=== PATIENT | male | born 1950 | race Caucasian/White ===

== ENCOUNTER → 2019-01-27 | Outpatient (REF) | payer MEDICARE, BC ==
[2019-01-27 17:20] LABS: BLOOD UREA NITROGEN 32 MG/DL (7-18); CALCIUM LEVEL 9.2 MG/DL (8.8-10.2); CARBON DIOXIDE LEVEL 27 MEQ/L (21-32); CHLORIDE LEVEL 106 MEQ/L (98-107); CHOLESTEROL LEVEL 182 MG/DL (<200); CHOLESTEROL RISK RATIO 3.791 (<5); CREATININE FOR GFR 1.54 MG/DL (0.70-1.30); GLOMERULAR FILTRATION RATE 48.2 (>49); GLUCOSE, FASTING 89 MG/DL (70-100); HDL CHOLESTEROL 48 MG/DL (>40); LDL CHOLESTEROL 94 MG/DL (<100); NON-HDL-C 134 MG/DL; POTASSIUM SERUM 4.8 MEQ/L (3.5-5.1); PROSTATIC SPECIFIC AG MONITOR < 0.01 NG/ML (< 4.00); SODIUM LEVEL 141 MEQ/L (136-145); TRIGLYCERIDES LEVEL 201 MG/DL (<150)
== END ==
LOC: M SFHCCLAY 09:58
PROVIDERS: ATTEND Family Medicine
DX: E78.5 Hyperlipidemia, unspecified (principal); I11.9 Hypertensive heart disease without heart failure; Z85.46 Personal history of malignant neoplasm of prostate

== ENCOUNTER 2019-07-30 15:12 | Observation (INO) | payer BC, MEDICARE ==
[~2019-07-30] VITALS: Ht 185.4 cm; Wt 90.6 kg
[2019-07-30 16:00] LABS: BASO # 0.1 10^3/uL (0.0-0.2); BASO % 0.7 % (0.0-1.0); EOS % 0.3 % (0.0-3.0); HEMATOCRIT 37.7 % (42.0-52.0); HEMOGLOBIN 12.9 g/dl (13.5-17.5); LYMPH # 0.7 10^3/uL (1.5-5.0); LYMPH % 8.9 % (24.0-44.0); MEAN CORPUSCULAR HEMOGLOBIN 35.8 pg (27.0-33.0); MEAN CORPUSCULAR HGB CONC 34.2 g/dl (32.0-36.5); MEAN CORPUSCULAR VOLUME 104.7 fl (80.0-96.0); MONO # 0.7 10^3/uL (0.0-0.8); MONO % 8.9 % (0.0-5.0); NEUTROPHILS # 5.9 10^3/uL (1.5-8.5); NEUTROPHILS % 80.8 % (36.0-66.0); PLATELET COUNT, AUTOMATED 157 10^3/uL (150-450); WHITE BLOOD COUNT 7.3 10^3/uL (4.0-10.0)
[2019-07-30 16:11] LABS: INR 1.02; PROTHROMBIN TIME 13.1 SECONDS (11.8-14.0)
[2019-07-30 16:28] LABS: ALBUMIN 4.2 GM/DL (3.2-5.2); ALT/SGPT 115 U/L (12-78); BILIRUBIN,DIRECT 0.3 MG/DL (0.0-0.2); BILIRUBIN,TOTAL 1.5 MG/DL (0.2-1.0); BLOOD UREA NITROGEN 23 MG/DL (7-18); CALCIUM LEVEL 9.3 MG/DL (8.8-10.2); CARBON DIOXIDE LEVEL 22 MEQ/L (21-32); CHLORIDE LEVEL 104 MEQ/L (98-107); CK-MB VALUE MASS 2.5 NG/ML (<3.6); CPK CREATINE PHOSPHOKINASE 184 U/L (39-308); CREATININE FOR GFR 1.68 MG/DL (0.70-1.30); GLOMERULAR FILTRATION RATE 43.6 (>49); GLUCOSE, FASTING 142 MG/DL (70-100); MB/CK RELATIVE INDEX 1.36 (< OR =4); NT-PRO BNP 190 PG/ML (<125); POTASSIUM SERUM 4.1 MEQ/L (3.5-5.1); SODIUM LEVEL 139 MEQ/L (136-145); TOTAL PROTEIN 7.4 GM/DL (6.4-8.2); TROPONIN I < 0.02 NG/ML (< 0.10)
[2019-07-30 16:52] LABS: D-DIMER QUANT 923.97 ng/ml (<500)
[2019-07-30] MEDS ORDERED: NS 1,000 ML IV SCH (17:07)
[2019-07-30] MEDS ORDERED: HEPARIN DRIP 25,000 UNITS in IV 1 EA IV SCH ×2 (17:10→17:16)
[2019-07-30] MEDS ORDERED: ACETAMINOPHEN TAB 650MG DOSE (2X325MG) PO PRN (17:15)
[2019-07-30] MEDS ORDERED: MAALOX 30 ML SUSP *UDC PO PRN (17:15)
[2019-07-30] MEDS ORDERED: MOM 30ML SUSPENSION UDC PO PRN (17:15)
[2019-07-30 17:19] LABS: PARTIAL THROMBOPLASTIN TIME 28.3 SECONDS (25.0-38.4)
[2019-07-30] MEDS ORDERED: LOSA50TA88 PO (17:20)
[2019-07-30] MEDS ORDERED: ATOR1TAB21 PO (17:20)
[2019-07-30] MEDS ORDERED: ASPI325T56 PO (17:20)
--- NOTE | 2019-07-30 17:23 | REP ---
TWO-VIEW CHEST: REASON: Cough and dyspnea. PRIORS: None. FINDINGS: The superior mediastinal structures are midline. The cardiac silhouette is unremarkable in size, shape, and position. The diaphragmatic surfaces of the lungs are regular, and the costophrenic angles are clear. The pulmonary almaraz are clear. The imaged osseous structures are intact. IMPRESSION: There is no acute cardiopulmonary disease. Electronically Signed by Moi Manuel DO 07/31/2019 11:07 A
[2019-07-30] MEDS ORDERED: HEPARIN SOD (PORCINE) 5000UNITS/ML VIAL (J1644 PER 1000UNITS) IV PRN (17:30)
--- NOTE | 2019-07-30 18:01 | HPEPDOC ---
[facility] Medical History & Physical Date of Admission July 30, 2019 Date of Service: July 30, 2019 History and Physical CHIEF COMPLAINT: SOB HISTORY OF PRESENT ILLNESS: Patient is a 68-year-old male with past medical history of HTN, HLD, and PSH of prostatectomy performed 5 years ago with yearly PSA checks, presented with dyspnea. Patient reports symptoms started about or days ago, he reports dyspnea on exertion, no chest pain, occasional lightheadedness. He first noticed it when he was outside in the garden. Today he called his PCP who instructed him to go to the ED for further evaluation. He denies any recent fevers, chills, nausea, vomiting, abdominal pain, issues with voiding or stooling, lower extremity pain. He did recently travel to [place] with his , he returned approximately a month ago and has been self quarantined at home. He denies any sick contacts, does not have current symptoms. This is first episode regarding his presentation. In the ED, patient was found to be tachycardic at 125, afebrile, not hypotensive, saturating 97% on room air. Labs include CBC grossly normal limits, hemoglobin of 12.9, hematocrit 37.7, platelets 157, CMP, revealing a creatinine of 1.68, unknown previous baseline, total bilirubin 1.5, direct bilirubin 0.3, AST 90, ALT 1:15, elevated, proBNP slightly elevated at 190, troponin 1 less than 0.02, TSH 2.06, d-dimer 932, PT/INR, PTT, all grossly within normal limits, COV ID screen pending. Heparin drip was started in the ED. ROS: 10 point review systems negative except per above. PMH: see above PSH: See above Family history: CVD, younger brother (of 7y) with a history of DVT, currently on warfarin Social history: former smoker, denies alcohol, or drug use, is semiretired, works in a [employer]. Medications: Reviewed Allergies: pcn, unknown reaction PHYSICAL EXAMINATION: VITAL SIGNS: Please see below. GENERAL: male who is in no distress, able to speak in full sentences without difficulty HEENT: Normocephalic, atraumatic, moist mucous membranes NECK: Supple CARDIOVASCULAR EXAMINATION: S1, S2 RESPIRATORY EXAMINATION: CTA B ABDOMINAL EXAMINATION: +BS, nontender to palpation EXTREMITIES: no edema, no calf tenderness SKIN: No rash NEUROLOGICAL EXAMINATION: Awake PSYCHIATRIC EXAMINATION: Calm and cooperative, appropriate affect, has capacity Patient is a 68-year-old male presenting with dyspnea, tachycardia in the setting of recent travel and elevated d-dimer #Dyspnea, with associated tachycardia, and elevated d-dimer with high suspicion of PE. Order bilateral lower extremity Doppler to evaluate for DVT, ordered a stat echo to evaluate for right heart strain. Unfortunately CTA cannot be performed due to of elevated creatinine, and VQ scan is not available until 08/01/19 a.m. On empirically continue heparin GTT. #HTN/HLD: Continue home meds #hx Prostatectomy, in the setting of negative lower extremity Doppler, elevated d-dimer, no history of blood dyscrasias, former smoker who quit when he was 33yo, he may require oncological workup if PE present as an outpatient if clinically stable. DVT ppx: Heparin GTT, plan to transition to by mouth tomorrow 07/31/2019 if positive for PE Full code Dispo: dc home AM 07/31/19 Plan was discussed with patient, ED team, nursing team, and staff. Vital Signs Vital Signs Date Time Temp Pulse Resp B/P (MAP) Pulse Ox O2 Delivery O2 Flow Rate FiO2 07/30/19 15:45 07/30/19 15:45 Room Air 07/30/19 15:14 97.9 125 18 97 Laboratory Data Labs 24H Laboratory Tests 2 07/30/19 15:31: Immature Granulocyte % (Auto) 0.4, Neutrophils (%) (Auto) 80.8H, Lymphocytes (%) (Auto) 8.9L, Monocytes (%) (Auto) 8.9H, Eosinophils (%) (Auto) 0.3, Basophils (%) (Auto) 0.7, Neutrophils # (Auto) 5.9, Lymphocytes # (Auto) 0.7L, Monocytes # (Auto) 0.7, Eosinophils # (Auto) 0.0, Basophils # (Auto) 0.1, Nucleated Red Blood Cells % (auto) 0.0, Prothrombin Time 13.1, Prothromb Time International Ratio 1.02, D-Dimer, Quantitative 923.97H, Anion Gap 13, Glomerular Filtration Rate 43.6L, Calcium Level 9.3, Total Bilirubin 1.5H, Direct Bilirubin 0.3H, Aspartate Amino Transf (AST/SGOT) 90H, Alanine Aminotransferase (ALT/SGPT) 115H, Alkaline Phosphatase 78, Total Creatine Kinase 184, Creatine Kinase MB 2.5, Creatine Kinase MB Relative Index 1.36, Troponin I < 0.02, NJ-Ifp-M-Type Natriuretic Peptide 190H, Total Protein 7.4, Albumin 4.2, Albumin/Globulin Ratio 1.31, Thyroid Stimulating Hormone (TSH) 2.060 07/30/19 15:49: CBC/BMP Laboratory Tests 07/30/19 15:31 Microbiology Microbiology 07/30/19 Respiratory Virus Panel (PCR) ([facility]) - Final, Complete Home Medications Scheduled Aspirin (Aspirin) 325 Mg Tablet, 325 MG PO DAILY Atorvastatin Calcium (Atorvastatin Calcium) 20 Mg Tablet, 20 MG PO DAILY Losartan Potassium (Losartan Potassium) 50 Mg Tablet, 50 MG PO BID Allergies Coded Allergies: Penicillins (Verified Allergy, Unknown, rash , 07/30/19) A-FIB/CHADSVASC A-FIB History Current/History of A-Fib/PAF?: No BERNICE CHILEL MD July 30, 2019 17:18
[2019-07-30 18:27] LABS: HEMATOCRIT 36.4 % (42.0-52.0); HEMOGLOBIN 12.1 g/dl (13.5-17.5); MEAN CORPUSCULAR HEMOGLOBIN 35.3 pg (27.0-33.0); MEAN CORPUSCULAR HGB CONC 33.2 g/dl (32.0-36.5); MEAN CORPUSCULAR VOLUME 106.1 fl (80.0-96.0); PLATELET COUNT, AUTOMATED 146 10^3/uL (150-450); RED BLOOD COUNT 3.43 10^6/uL (4.30-6.10); WHITE BLOOD COUNT 8.2 10^3/uL (4.0-10.0)
--- NOTE | 2019-07-30 19:08 | REPVR ---
PROCEDURE INFORMATION: Exam: US Duplex Lower Extremity Veins, Bilateral Exam date and time: 07/30/2019 6:58 PM Age: 68 years old Clinical indication: Other: Shortness of breath; Additional info: Dyspnea TECHNIQUE: Imaging protocol: Real-time duplex ultrasound of the extremities with 2-D stanley scale, color Doppler flow and spectral waveform analysis with image documentation. Complete exam focused on the bilateral lower extremity veins. COMPARISON: No relevant prior studies available. FINDINGS: Right deep veins: Unremarkable. The common femoral, femoral, proximal profunda femoral and popliteal veins are patent without thrombus. Normal Doppler waveforms. Normal compressibility and/or augmentation response. Visualization of distal right femoral vein was limited. No thrombus in tibioperoneal trunk. Right superficial veins: Saphenofemoral junction is patent without thrombus. Left deep veins: Unremarkable. The common femoral, femoral, proximal profunda femoral and popliteal veins are patent without thrombus. Normal Doppler waveforms. Normal compressibility and/or augmentation response. No thrombus in tibioperoneal trunk. Left superficial veins: Saphenofemoral junction is patent without thrombus. Soft tissues: Unremarkable. IMPRESSION: No acute findings. No evidence of deep vein thrombosis. Electronically signed by: Lester Barroso On 07/30/2019 19:07:49 PM
--- NOTE | 2019-07-30 20:32 | ECGEPIP ---
[facility] - ED Test Date: 2019-07-30 Pat Name: HAWK FARLEY Department: Room: - Gender: Male [employer]: ef : 1950 Requested By: MORIAH Pereira Order Number: [id number] Reading MD: Koki Guzmán Measurements Intervals [place] Rate: 100 P: 9 WA: 154 QRS: -3 QRSD: 81 T: 15 QT: 327 QTc: 423 Interpretive Statements SINUS TACHYCARDIA LOW QRS VOLTAGE IN PRECORDIAL LEADS POSSIBLE INFERIOR MYOCARDIAL INFARCTION, PROBABLY OLD ABNORMAL RHYTHM ECG NO PRIOR Electronically Signed on 07-30-2019 20:31:37 EDT by Koki Guzmán
[2019-07-30 20:40] VITALS: BP 157/86
[2019-07-30] MEDS: LOSARTAN 50MG TABLET PO SCH (21:04)
[2019-07-31 04:00] VITALS: BP 161/84
[2019-07-31 06:28] LABS: HEMOGLOBIN 11.6 g/dl (13.5-17.5); MEAN CORPUSCULAR HEMOGLOBIN 36.4 pg (27.0-33.0); MEAN CORPUSCULAR HGB CONC 34.1 g/dl (32.0-36.5); MEAN CORPUSCULAR VOLUME 106.6 fl (80.0-96.0); PLATELET COUNT, AUTOMATED 127 10^3/uL (150-450); RED BLOOD COUNT 3.19 10^6/uL (4.30-6.10)
[2019-07-31 06:51] LABS: CALCIUM LEVEL 8.9 MG/DL (8.8-10.2); CREATININE FOR GFR 1.57 MG/DL (0.70-1.30); GLOMERULAR FILTRATION RATE 47.1 (>49)
[2019-07-31 08:00] VITALS: BP 146/82
[2019-07-31 08:07] VITALS: BP 146/82
[2019-07-31] MEDS: LOSARTAN 50MG TABLET PO SCH (08:07)
[2019-07-31] MEDS ORDERED: ATORVASTATIN 20 MG TAB PO SCH (09:00)
[2019-07-31] MEDS ORDERED: ASPIRIN 325 MG TAB PO SCH (09:00)
[2019-07-31 12:00] VITALS: BP 142/81
--- NOTE | 2019-07-31 12:23 | REP ---
VENTILATION-PERFUSION LUNG SCAN: HISTORY: Dyspnea and tachycardia. TECHNIQUE: 1.0 mCi technetium 99m DTPA aerosol is utilized for the ventilation study and is followed by 5.5 mCi dose of technetium-99m MAA given intravenously for the perfusion exam. A sequence of eight planar images are acquired for each portion of the study. Comparison is made with yesterday's chest x-ray. SCINTIGRAPHIC FINDINGS: There is a normal homogeneous distribution of perfusion tracer throughout the lung almaraz bilaterally. No perfusion defect is seen. Ventilation study and is essentially normal as well with minimal mediastinal tracer consistent with swallowed esophageal or tracheal inspired tracer. IMPRESSION: Normal VQ lung scan. No scintigraphic evidence to suggest pulmonary embolism. Electronically Signed by Carson Khoury MD 07/31/2019 01:31 P
--- NOTE | 2019-07-31 13:53 | DS.PDOC ---
Discharge Summary General Date of Admission July 30, 2019 at 17:11 Date of Discharge 08/01/19 Discharge Summary PROCEDURES PERFORMED DURING STAY: None. ADMITTING DIAGNOSES: 1. SOB. DISCHARGE DIAGNOSES: 1. Dyspnea on exertion. COMPLICATIONS/CHIEF COMPLAINT: Dyspnea,Elevated D-Dimer,Tachycardia. HISTORY OF PRESENT ILLNESS/HOSPITAL COURSE: Patient is a 68-year-old male with past medical history of HTN, HLD, and PSH of prostatectomy performed 5 years ago with yearly PSA checks, presented with dyspnea. He was found to have stage III, CK D during hospitalization, and no previous labs to compare, stable, no urinary issues. Due to suspicion of PE, including dyspnea, tachycardia, elevated d- dimer, patient was empirically started on heparin drip. Bilateral ultrasound Dopplers were negative, VQ scan this a.m. was normal. Patient reports resolution of shortness of breath. Will lots discharged on steroids or inhalers, patient is saturating well on room air and is speaking in full sentences. He will follow-up with his PCP in 1 week. Tachycardia has resolved. Discussed with patient dif ferent causes of shortness of breath, intentionally viral in etiology which would require systematic treatment. No changes with medications. All questions were answered. Echo was performed in hospitalization, results pending, follow-up results as outpatient. DISCHARGE MEDICATIONS: Please see below. ALLERGIES: Please see below. PHYSICAL EXAMINATION ON DISCHARGE: VITAL SIGNS: Please see below. GENERAL: No distress HEENT: Normocephalic, atraumatic, moist mucous membranes NECK: Supple CARDIOVASCULAR EXAMINATION: S1, S2 RESPIRATORY EXAMINATION: CTAB ABDOMINAL EXAMINATION: Soft, nontender, nondistended, positive bowel sounds EXTREMITIES: no edema SKIN: No rash NEUROLOGICAL EXAMINATION: Alert and oriented 3, no focal deficits PSYCHIATRIC EXAMINATION: Calm and cooperative, appropriate affect LABORATORY DATA: Please see below. ACTIVITY: As tolerated. DIET: Cardiac DISCHARGE PLAN: See above DISPOSITION: DC home TIME SPENT ON DISCHARGE: 35 minutes, >50% was spent on patient education. Vital Signs/I&Os Vital Signs Date Time Temp Pulse Resp B/P (MAP) Pulse Ox O2 Delivery O2 Flow Rate FiO2 07/31/19 12:00 98.3 89 17 142/81 (101) 98 Room Air I&O- Last 24 Hours up to 6 AM 07/31/19 06:00 Intake Total 1183 ml Output Total 275 ml Balance 908 ml Laboratory Data Labs 24H Laboratory Tests 2 07/30/19 15:31: Immature Granulocyte % (Auto) 0.4, Neutrophils (%) (Auto) 80.8H, Lymphocytes (%) (Auto) 8.9L, Monocytes (%) (Auto) 8.9H, Eosinophils (%) (Auto) 0.3, Basophils (%) (Auto) 0.7, Neutrophils # (Auto) 5.9, Lymphocytes # (Auto) 0.7L, Monocytes # (Auto) 0.7, Eosinophils # (Auto) 0.0, Basophils # (Auto) 0.1, Nucleated Red Blood Cells % (auto) 0.0, Prothrombin Time 13.1, Prothromb Time International Ra red 1.02, Activated Partial Thromboplast Time 28.3, D-Dimer, Quantitative 923.97H, Anion Gap 13, Glomerular Filtration Rate 43.6L, Calcium Level 9.3, Total Bilirubin 1.5H, Direct Bilirubin 0.3H, Aspartate Amino Transf (AST/SGOT) 90H, Alanine Aminotransferase (ALT/SGPT) 115H, Alkaline Phosphatase 78, Total Creatine Kinase 184, Creatine Kinase MB 2.5, Creatine Kinase MB Relative Index 1.36, Troponin I < 0.02, RV-Hlc-I-Type Natriuretic Peptide 190H, Total Protein 7.4, Albumin 4.2, Albumin/Globulin Ratio 1.31, Thyroid Stimulating Hormone (TSH) 2.060 07/30/19 15:49: Coronavirus (COVID-19)(PCR) NEGATIVE 07/30/19 18:09: Nucleated Red Blood Cells % (auto) 0.0, Activated Partial Thromboplast Time 35.4 07/30/19 23:24: Activated Partial Thromboplast Time 61.9H 07/31/19 06:18: Nucleated Red Blood Cells % (auto) 0.0, Activated Partial Thromboplast Time 147.5*H, Anion Gap 7L, Glomerular Filtration Rate 47.1L, Calcium Level 8.9 CBC/BMP Laboratory Tests 07/30/19 15:31 07/30/19 18:09 07/31/19 06:18 Microbiology Microbiology 07/30/19 Respiratory Virus Panel (PCR) ([facility]) - Final, Complete Discharge Medications Scheduled Aspirin (Aspirin) 325 Mg Tablet, 325 MG PO DAILY, (Reported) Atorvastatin Calcium (Atorvastatin Calcium) 20 Mg Tablet, 20 MG PO DAILY, (Reported) Losartan Potassium (Losartan Potassium) 50 Mg Tablet, 50 MG PO BID, (Reported) Allergies Coded Allergies: Penicillins (Verified Allergy, Unknown, rash , 07/30/19) BERNICE CHILEL MD July 31, 2019 13:53
--- NOTE | 2019-07-31 19:59 | ECHO ---
DATE OF PROCEDURE: 07/31/2019 Date of : 1950 Age: 68 Gender: Male Height: 73 inches Weight: 198 pounds Body surface area: 2.14 meters squared Inpatient: Progressive care unit (PCU), room 3214 REFERRING PHYSICIAN: Alysha Pichardo MD INDICATION: Dyspnea. MEASUREMENTS: 2D Measurements: RV: 3.9 cm LV: 4.2 cm Septum: 1.1 cm Posterior wall: 1.1 cm Aortic root: 3.8 cm LA: 3.9 cm LVEF: 75% Doppler Measurements: AV: 1.26 meters per second LVOT: 0.96 meters per second LVOT diameter: 2.0 cm MV-E: 63, A: 81, EA ratio: 0.8 Early mitral deceleration time: 254 milliseconds E prime medial: 6.5, A prime medial: 9.6, E prime lateral: 9.5. Average E/E prime ratio: 7.9/pulmonary capillary wedge pressure: 11.7 mmHg. PV: 0.75 meters per second Pulmonary artery acceleration time: 113 milliseconds PASP: 32 mmHg IVC: 2.0 cm COMMENTS: Normal sinus rhythm without intraventricular conduction disturbance. M-mode and two-dimensional echocardiography was performed with pulsed, continuous wave, color flow and tissue Doppler study. Normal left ventricular size, wall thickness and hyperkinetic wall motion. Left atrial size upper limits of normal with grade 1 left ventricular (LV) diastolic dysfunction but currently normal estimated mean left atrial pressure. Normal right heart chamber sizes and motion with Doppler sign of borderline pulmonary hypertension. Normal inferior vena cava (IVC) size and collapse against an elevated central venous pressure. Borderline dilated aortic root but normal ascending aorta. Mild aortic valvular sclerosis without functional abnormality. Normal appearing tricuspid valve and leaflet excursion with no posterior systolic buckling. Trace mitral insufficiency (physiologic). Normal appearing tricuspid valve with trace insufficiency (physiologic). No apparent intracardiac mass or pericardial effusion.
== END 2019-07-31 15:26 | disposition home or self-care (01) ==
LOC: M ED 15:12 → M ED INP 17:11 → ENRESERV 19:41 → M PCU 20:50
PROVIDERS: ADMIT Family Medicine; ATTEND Family Medicine
DX: R06.09 Other forms of dyspnea (principal); R79.1 Abnormal coagulation profile; R00.0 Tachycardia, unspecified; I12.9 Hypertensive chronic kidney disease with stage 1 through stage 4 chronic kidney disease, or unspecified chronic kidney disease; E78.5 Hyperlipidemia, unspecified; Z90.79 Acquired absence of other genital organ(s); N18.3 Chronic kidney disease, stage 3 (moderate); Z85.46 Personal history of malignant neoplasm of prostate; Z79.899 Other long term (current) drug therapy; Z79.82 Long term (current) use of aspirin; Z88.0 Allergy status to penicillin; Z87.891 Personal history of nicotine dependence
CPT/HCPCS: 36415; 71046; 78582; 80048; 80076; 82550; 82553; 83880; 84443; 84484; 85025; 85027; 85379; 85610; 85730; 87486; 87581; 87633; 87798; 93005; 93041; 93306; 93970; 94760; 96365; 96366; 99285; A9540; A9567; G0378; J1644; U0002

== ENCOUNTER → 2019-08-28 | Outpatient (REF) | payer MEDICARE ==
[~2019-08-28] MED LIST: ASPI325T56 PO; ATOR1TAB21 PO; LOSA50TA88 PO
[2019-08-28 13:04] LABS: BASO % 0.7 % (0.0-1.0); EOS # 0.1 10^3/uL (0.0-0.5); HEMATOCRIT 33.5 % (42.0-52.0); HEMOGLOBIN 11.5 g/dl (13.5-17.5); LYMPH # 1.2 10^3/uL (1.5-5.0); LYMPH % 26.5 % (24.0-44.0); MEAN CORPUSCULAR HEMOGLOBIN 36.3 pg (27.0-33.0); MEAN CORPUSCULAR HGB CONC 34.3 g/dl (32.0-36.5); MEAN CORPUSCULAR VOLUME 105.7 fl (80.0-96.0); MONO # 0.6 10^3/uL (0.0-0.8); MONO % 13.3 % (0.0-5.0); NEUTROPHILS # 2.6 10^3/uL (1.5-8.5); NEUTROPHILS % 56.1 % (36.0-66.0); PLATELET COUNT, AUTOMATED 142 10^3/uL (150-450); RED BLOOD COUNT 3.17 10^6/uL (4.30-6.10); WHITE BLOOD COUNT 4.6 10^3/uL (4.0-10.0)
[2019-08-28 13:37] LABS: ALBUMIN 3.8 GM/DL (3.2-5.2); ALT/SGPT 105 U/L (12-78); BLOOD UREA NITROGEN 18 MG/DL (7-18); CALCIUM LEVEL 8.5 MG/DL (8.8-10.2); CARBON DIOXIDE LEVEL 27 MEQ/L (21-32); CHLORIDE LEVEL 106 MEQ/L (98-107); CREATININE FOR GFR 1.19 MG/DL (0.70-1.30); FOLATE 6.9 NG/ML; GLOMERULAR FILTRATION RATE > 60.0 (>49); GLUCOSE, FASTING 82 MG/DL (70-100); POTASSIUM SERUM 4.1 MEQ/L (3.5-5.1); RHEUMATOID FACTOR QUANT < 10.0 IU/ML (<15.0); SODIUM LEVEL 142 MEQ/L (136-145); TOTAL PROTEIN 6.9 GM/DL (6.4-8.2)
[2019-08-28 13:48] LABS: ERYTHROCYTE SEDIMENTATION RATE 35 mm/hr (0-20)
[2019-08-28 14:31] LABS: HEMOGLOBIN A1c 5.7 %
[2019-08-29 10:51] LABS: VITAMIN B12 LEVEL 1732 PG/ML
[2019-09-01 12:48] LABS: ALBUMIN % 64.1 % (55.8-66.1)
[2019-09-01 12:49] LABS: ALPHA-1-GLOBULIN % 4.8 % (2.9-4.9)
[2019-09-01 12:52] LABS: ALBUMIN 4.42 GM/DL (3.29-5.55); ALPHA-1-GLOBULINS 0.33 GM/DL (0.17-0.41); ALPHA-2-GLOBULINS 0.68 GM/DL (0.42-0.99); ALPHA-2-GLOBULINS % 9.9 % (7.1-11.8); BETA-1-GLOBULINS 0.45 GM/DL (0.28-0.60); BETA-1-GLOBULINS % 6.5 % (4.7-7.2); BETA-2-GLOBULINS 0.35 GM/DL (0.19-0.55); GAMMA GLOBULIN % 9.7 % (11.1-18.8); GAMMA GLOBULINS 0.67 GM/DL (0.65-1.58)
[2019-09-04 08:09] LABS: ANCA-ATYPICAL <1:20 titer (Neg:<1:20); ANTI DS-DNA AB Negative (Negative); ANTINUCLEAR ANTIBODIES DIRECT Negative (Negative); CYTOPLASMIC NEUTROP AB ANCA-C <1:20 titer (Neg:<1:20); PERINUCLEAR AB ANCA-P <1:20 titer (Neg:<1:20); SJOGREN'S ANTI SS-A <0.2 AI (0.0-0.9); SJOGREN'S ANTI SS-B <0.2 AI (0.0-0.9); VITAMIN B1 LEVEL WHOLE BLOOD 98.7 nmol/L (66.5-200.0); VITAMIN B6,PYRIDOXAL PHOSPHATE 5.1 ug/L (5.3-46.7); VITAMIN E(ALPHA TOCOPHEROL) 9.5 mg/L (9.0-29.0); VITAMIN E(GAMMA TOCOPHEROL) 1.2 mg/L (0.5-4.9)
== END ==
LOC: M LABDRAWC 11:46
PROVIDERS: ATTEND Psychiatry & Neurology Neurology
DX: G62.9 Polyneuropathy, unspecified (principal); E07.9 Disorder of thyroid, unspecified

== ENCOUNTER → 2019-10-09 | Outpatient (REF) | payer MEDICARE ==
[2019-10-11 19:08] LABS: Lyme Disease IgG/IgM Antibodie <0.91 ISR (0.00-0.90); Lyme Disease IgM Ab Quantitati <0.80 index (0.00-0.79)
== END ==
LOC: M LABDRAWC 15:47
PROVIDERS: ATTEND Physician Assistant Medical
DX: R53.83 Other fatigue (principal); R51 Headache; G62.9 Polyneuropathy, unspecified

== ENCOUNTER → 2019-11-04 | Outpatient (CLI) | payer MEDICARE ==
--- NOTE | 2019-12-15 09:44 | REP ---
ABDOMINAL RIGHT UPPER QUADRANT ULTRASOUND Delay in reporting results from malfunction of the hospital computer system as the result of a malware attack. CLINICAL DIAGNOSIS: R94.5 COMPARISON: None. FINDINGS: There is no cholelithiasis, gallbladder wall thickening, or pericholecystic fluid. There is no intrahepatic or extrahepatic biliary duct dilatation. The common biliary duct measures 3.1 mm in diameter. The hepatic parenchyma is homogeneous, but difficult to penetrate with the acoustic beam compatible with hepatosteatosis. No hepatic masses or cysts are identified. The pancreatic tail is obscured by bowel gas. The visualized areas of the pancreatic head and body are unremarkable except for mild heterogeneity, possibly from fatty replacement. The right kidney measures 12.7 x 4.9 x 6.3 cm and is normal size. There is no right renal hydronephrosis, calculus, mass, or cyst. The examination is technically limited because of the patient body habitus and bowel gas. IMPRESSION: Hepatosteatosis. Mildly heterogeneous pancreatic parenchyma possibly from fatty replacement. Clinical correlation for pancreatitis is recommended. Otherwise, negative abdominal right upper quadrant ultrasound. MTDD
== END ==
LOC: M WHC 12:27
PROVIDERS: ATTEND Family Medicine
DX: R94.5 Abnormal results of liver function studies (principal); K76.0 Fatty (change of) liver, not elsewhere classified

== ENCOUNTER → 2020-01-23 | Outpatient (REF) | payer MEDICARE ==
[2020-01-26 19:06] LABS: Lyme Disease IgG/IgM Antibodie <0.91 ISR (0.00-0.90); Lyme Disease IgM Ab Quantitati <0.80 index (0.00-0.79)
== END ==
LOC: M SFHCCLAY 10:38
PROVIDERS: ATTEND Family Medicine
DX: R53.83 Other fatigue (principal)

== ENCOUNTER 2020-02-15 11:20 | Inpatient (IN) | payer MEDICARE ==
[~2020-02-15] VITALS: Ht 185.4 cm; Wt 88.6 kg
[2020-02-15] MEDS ORDERED: ATEN25TA PO (11:36)
[2020-02-15] MEDS ORDERED: NS 1,000 ML IV ONE (12:00)
[2020-02-15 12:07] LABS: BASO % 0.6 % (0.0-1.0); EOS # 0.1 10^3/uL (0.0-0.5); EOS % 1.5 % (0.0-3.0); HEMATOCRIT 30.2 % (42.0-52.0); HEMOGLOBIN 9.6 g/dl (13.5-17.5); LYMPH % 21.4 % (24.0-44.0); MEAN CORPUSCULAR HGB CONC 31.8 g/dl (32.0-36.5); MEAN CORPUSCULAR VOLUME 113.1 fl (80.0-96.0); MONO # 0.5 10^3/uL (0.0-0.8); MONO % 10.5 % (0.0-5.0); NEUTROPHILS # 3.1 10^3/uL (1.5-8.5); NEUTROPHILS % 65.2 % (36.0-66.0); PLATELET COUNT, AUTOMATED 100 10^3/uL (150-450); RED BLOOD COUNT 2.67 10^6/uL (4.30-6.10); WHITE BLOOD COUNT 4.8 10^3/uL (4.0-10.0)
[2020-02-15] MEDS ORDERED: ceFAZolin SOD 1 GM in D5W MINI-BAG PLUS 50 ML IV ONE (12:15)
[2020-02-15] MEDS ORDERED: BOOSTRIX/ADACEL VACCINE (DIPHTH/PERTUSS/ACELL/TETANUS) 0.5ML SYR IM ONE (12:15)
[2020-02-15 12:17] LABS: INR 0.99; PARTIAL THROMBOPLASTIN TIME 28.4 SECONDS (24.2-38.5); PROTHROMBIN TIME 13.3 SECONDS (12.5-14.3)
[2020-02-15] MEDS ORDERED: TETANUS IMMUNE GLOBULIN (HUMAN) 250 UNITS/ML SYRINGE (J1670)(90389) IM ONE (12:30)
--- NOTE | 2020-02-15 12:39 | REP ---
INDICATION: fall, confusion COMPARISON: None. TECHNIQUE: Axial noncontrast images from the skull base to the thoracic inlet with coronal reformations. This CT examination was performed using the following dose reduction techniques: Automated exposure control, adjustment of mA and/or kv according to the patient's size, and use of iterative reconstruction technique. FINDINGS: Age-related atrophy with periventricular leukomalacia and microvascular ischemic changes are appreciated. The ventricles and sulci are symmetric. Martines-white differentiation is maintained. There is no evidence for acute intracranial hemorrhage, mass/mass effect, pathology or infarction. No extra-axial fluid collection. Calvarium is intact. Paranasal sinuses and mastoid air cells are clear. IMPRESSION: Age related atrophy and microvascular ischemic changes. No acute intracranial hemorrhage, infarction, or mass/mass effect. <Electronically signed by Tobias Foster > 02/15/20 [id number]
--- NOTE | 2020-02-15 12:40 | REP ---
INDICATION: fall, right ankle pain COMPARISON: None. TECHNIQUE: AP and lateral views of the right foot. FINDINGS: Generalized age-related degenerative changes are appreciated. Acute versus old fracture at the base of the 5th metatarsal bone requires clinical correlation. No other fracture or dislocation identified. IMPRESSION: Generalized age-related changes. Acute versus likely old fracture at the base of the 5th metatarsal bone should be correlated with physical examination. No other fracture or dislocation identified or suspected. <Electronically signed by Tobias Foster > 02/15/20 1000
[2020-02-15 12:43] LABS: ACETAMINOPHEN LEVEL < 2.0 UG/ML (10.0-30.0); ALBUMIN 3.3 GM/DL (3.2-5.2); ALT/SGPT 103 U/L (12-78); BILIRUBIN,DIRECT 0.3 MG/DL (0.0-0.2); BILIRUBIN,TOTAL 0.4 MG/DL (0.2-1.0); BLOOD UREA NITROGEN 40 MG/DL (7-18); CALCIUM LEVEL 8.4 MG/DL (8.8-10.2); CARBON DIOXIDE LEVEL 23 MEQ/L (21-32); CHLORIDE LEVEL 114 MEQ/L (98-107); CREATININE FOR GFR 1.52 MG/DL (0.70-1.30); ETHYL ALCOHOL (ETHANOL) 0.325 % (0.000-0.010); GLOMERULAR FILTRATION RATE 48.8 (>49); GLUCOSE, FASTING 89 MG/DL (70-100); POTASSIUM SERUM 4.9 MEQ/L (3.5-5.1); SODIUM LEVEL 145 MEQ/L (136-145); TOTAL PROTEIN 6.3 GM/DL (6.4-8.2)
--- NOTE | 2020-02-15 12:43 | REP ---
INDICATION: fall, right ankle pain COMPARISON: None. TECHNIQUE: AP, lateral views of the right tibia/fibula. FINDINGS: There is an oblique displaced fracture of the distal tibial diaphysis. There is an oblique minimally displaced fracture of the proximal fibular metadiaphysis and oblique minimally displaced fracture through the distal fibular metaphysis. IMPRESSION: Oblique fractures of the proximal and distal fibula and oblique fracture of the distal tibia. <Electronically signed by Tobias Foster > 02/15/20 [id number]
--- NOTE | 2020-02-15 12:44 | REP ---
INDICATION: fall, right ankle pain COMPARISON: 07/30/2019 TECHNIQUE: Portable AP view of the chest FINDINGS: The mediastinum and cardiac silhouette are stable and within normal limits for portable technique. The lung almaraz are clear without acute consolidation, effusion, or pneumothorax. Skeletal structures are intact. IMPRESSION: No acute cardiopulmonary process appreciated. <Electronically signed by Tobias Foster > 02/15/20 [id number]
--- NOTE | 2020-02-15 12:45 | REP ---
INDICATION: fall, right ankle pain COMPARISON: None. TECHNIQUE: AP, lateral views of the right ankle FINDINGS: There is an oblique displaced fracture through the distal tibial diaphysis and oblique minimally displaced fracture of the distal fibular metaphysis. Overlying soft tissue swelling noted. IMPRESSION: Oblique fractures of the distal tibial shaft and distal fibular metaphysis. <Electronically signed by Tobias Foster > 02/15/20 [id number]
[2020-02-15] MEDS ORDERED: GABA-1171 PO (14:11)
[2020-02-15] MEDS ORDERED: LORazepam 2 MG TAB PO PRN (14:15)
[2020-02-15] MEDS ORDERED: NS 1,000 ML IV SCH (14:30)
--- NOTE | 2020-02-15 14:37 | HPEPDOC ---
[facility] Medical History & Physical Date of Admission Feb 15, 2020 Date of Service: Feb 15, 2020 History and Physical Chief complaint: Presented to the ER with right leg pain History of present illness: Patient is a 69-year-old male with a PMHx of HTN, DLP, Prostate CA (s/ p Prostatectomy 06/2014, follows annual PSA), Neuropathy (Follows with Neurology) who presented to the emergency room with right leg pain. Patient reports that yesterday evening he must have fallen, does not recall falling, but does report drinking approximately 3-4 drinks of scotch each 2-3 ounces. Patient woke up this morning with right leg pain. Reports pain as a 7/10 aching, throbbing nature, worsened with movement, alleviated with rest and pain medications. Patient denies any nausea, vomiting, abdominal pain consultation, diarrhea, shortness breath, cough, palpitations. Has not experienced any recent fevers or chills. Patient reports that he has had a recent stress test approximately 3 months ago, which was noted to be normal. He did not require any further cardiac catheterization. Patient has been informed that his liver enzymes were elevated in the past because of alcohol despite knowing that he has continued to drink alcohol. Patient reports that he generally drinks 3-4 drinks daily. However, denies any history of alcohol withdrawal. Past Medical History: HTN, DLP, Prostate CA (s/p Prostatectomy 06/2014, follows annual PSA), Neuropathy (Follows with Neurology) Past Surgical History: DEVIATED SEPTUM: AGE 33 PROSTATECTOMY 2014 TONSILLECTOMY PLASTIC SURGERY ON EAR CHILD Allergies: See below Medications: See below Family History: - Family history of cardiovascular disease. Patient reports a younger brother with DVT history Social History: - Denies the use of illicit drugs; Quit smoking >30 years ago; smoker of 20 years at 1 [employer], Reports regular alcohol use (3-4 drinks of 2-3 ounces each - scotch) - Denies recent travel or sick contacts - Lives with - Occupation; currently working at [employer] Review of Systems: 10 point review of systems complete, all negative otherwise stated in HPI Physical exam: - Vitals: BP [135/65], HR [74], RR [18], Sat [97%RA], Temp [98.7F] - General: Lying in bed, Speaking in full sentences, AAOx3 - HEENT: NC, AT, PERRLA - CVS: RRR, +S1S2 - Lungs: Fair air entry bilaterally, No appreciable wheezing / rales / rhonchi - Abdomen: Soft, Non-distended, Non-tender - Extremities: No lower extremity edema, No calf tenderness - Neuro: No focal motor or sensory deficit - Skin: No visible rashes Labs: See below Imaging: CT head 02/14: Age related atrophy and microvascular ischemic changes. No acute intracranial hemorrhage, infarction, or mass/mass effect. Ankle XR 02/14: Oblique fractures of the distal tibial shaft and distal fibular metaphysis. Foot XR 02/14: No acute cardiopulmonary process appreciated. Foot XR 02/14: Generalized age-related changes. Acute versus likely old fracture at the base of the 5th metatarsal bone should be correlated with physical examination. No other fracture or dislocation identified or suspected. XR Tib/Fib 02/14: Oblique fractures of the proximal and distal fibula and oblique fracture of the distal tibia. EKG: See below Assessment and Plan: Right leg pain - likely 2/2 oblique fracture of proximal and distal fibula and oblique fracture of distal tibia - Patient reports a fall while at home and came to the ER with R leg pain - Imaging noted above - Patient is scheduled to go to the OR today is for correction - Patient is medically optimized at low-moderate risk for low risk surgery; discussed risks and benefits of surgery with patient; patient has verbalized understanding - Discuss case with orthopedic surgery, Dr. James Bazzi - Pain control, anticoagulation and physical therapy at the direction of orthopedic surgery Fall at home - likely 2/2 intoxication - EKG reviewed without any ischemic changes - Ethanol level noted to be elevated Elevated ethanol level - Patient reports a regular use of alcohol; last consumed yesterday evening - Currently patient is fully oriented to person, place and time - No prior history of alcohol withdrawal - Will continue with thiamine, folate, and multivitamins - Will start CIWA protocol post-operatively Elevated Cr - Patients Cr baseline appears to 1.1-1.6 - Will hold nephrotoxic medications - c/w IV fluid hydration Transaminitis - Hepatic US 11/12: Hepatosteatosis. Mildly heterogeneous pancreatic parenchyma possibly from fatty replacement. Clinical correlation for pancreatitis is recommended. Otherwise, negative abdominal right upper quadrant ultrasound. Macrocytic anemia - Hemoglobin appears to be slightly lower than baseline - Will check B12/ Folate / Iron panel / Reticulocyte count - May require transfusion Thrombocytopenia - Platelet count appears to be lower than baseline - Will continue to follow HTN - BP currently well controlled - Will hold Losartan (re: Elevated Cr) - c/w Atenolol with hold parameters DLP - c/w Atorvastatin Prostate CA - s/p Prostatectomy 06/2014, follows annual PSA Neuropathy - c/w Gabapentin - Follows with Neurology Gastrointestinal prophylaxis - Will start Protonix DVT prophylaxis - Will hold anticoagulation for now; anticoagulation post-operatively as per orthopedic surgery Vital Signs Vital Signs Date Time Temp Pulse Resp B/P (MAP) Pulse Ox O2 Delivery O2 Flow Rate FiO2 02/15/20 13:30 74 18 135/65 (88) 97 Room Air 02/15/20 11:26 98.7 Laboratory Data Labs 24H Laboratory Tests 2 02/15/20 11:57: Immature Granulocyte % (Auto) 0.8, Neutrophils (%) (Auto) 65.2, Lymphocytes (%) (Auto) 21.4L, Monocytes (%) (Auto) 10.5H, Eosinophils (%) (Auto) 1.5, Basophils (%) (Auto) 0.6, Neutrophils # (Auto) 3.1, Lymphocytes # (Auto) 1.0L, Monocytes # (Auto) 0.5, Eosinophils # (Auto) 0.1, Basophils # (Auto) 0.0, Nucleated Red Blood Cells % (auto) 0.0, Prothrombin Time 13.3, Prothromb Time International Ratio 0.99, Activated Partial Thromboplast Time 28.4, Anion Gap 8, Glomerular Filtration Rate 48.8L, Calcium Level 8.4L, Total Bilirubin 0.4, Direct Bilirubin 0.3H, Aspartate Amino Transf (AST/SGOT) 134H, Alanine Aminotransferase (ALT/SGPT) 103H, Alkaline Phosphatase 75, Total Protein 6.3L, Albumin 3.3, Albumin/Globulin Ratio 1.1, Salicylates Level 6.0, Acetaminophen Level < 2.0L, Ethyl Alcohol Level 0.325H 02/15/20 12:49: Ammonia 19 02/15/20 13:26: Coronavirus (COVID-19)(PCR) NEGATIVE CBC/BMP Laboratory Tests 02/15/20 11:57 Microbiology Microbiology 02/15/20 Blood Culture, Received Pending 02/15/20 Blood Culture, Received Pending Home Medications Scheduled Aspirin (Aspirin) 325 Mg Tablet, 325 MG PO DAILY Atenolol (Atenolol) 25 Mg Tablet, 1 TAB PO BID Atorvastatin Calcium (Atorvastatin Calcium) 20 Mg Tablet, 20 MG PO DAILY Gabapentin (Gabapentin) 100 Mg Capsule, 100 MG PO TID Losartan Potassium (Losartan Potassium) 50 Mg Tablet, 50 MG PO BID Allergies Coded Allergies: Penicillins (Verified Allergy, Intermediate, rash , 02/15/20) MARY ARANA MD Feb 15, 2020 14:37
[2020-02-15 15:04] LABS: FERRITIN 1020 NG/ML (26-388); IRON (FE) 130 UG/DL (65-175); PERCENT SATURATION 46.3 % (19.7-50.0); TOTAL IRON BINDING CAPACITY 281 UG/DL (250-450)
[2020-02-15] MEDS ORDERED: LIDOCAINE W/EPINEPHRINE 1% 20ML VIAL As Ordered ONE (15:37)
[2020-02-15] MEDS ORDERED: ceFAZolin 1GM VIAL (J0690 PER 500MG) As Ordered ONE (15:38)
[2020-02-15] MEDS ORDERED: THIAMINE 200MG/2ML VIAL (J3411 PER 100MG) IV ONE (16:00)
[2020-02-15] MEDS ORDERED: MULTIVITAMIN -ADULT INJECTION 10 ML, THIAMINE INJection 100 MG, FOLIC ACID 1 MG in NS 1... IV ONE (17:00)
[2020-02-15] MEDS ORDERED: KETAMINE HCL 200 MG/20 ML VIAL As Ordered ONE (18:05)
[2020-02-15] MEDS ORDERED: LIDOCAINE 2% 100MG/5ML SDV (FOR ANES.) As Ordered ONE (18:05)
[2020-02-15] MEDS ORDERED: fentaNYL 100 MCG/2 ML INJECTION (J3010) As Ordered ONE ×2 (18:24→20:15)
[2020-02-15] MEDS ORDERED: propofoL 200 MG/20 ML VIAL As Ordered ONE ×2 (18:24→19:26)
[2020-02-15] MEDS ORDERED: MIDAZOLAM INJ 2MG/2ML VIAL (J2250 PER 1MG) As Ordered ONE (18:24)
[2020-02-15] MEDS ORDERED: ePHEDrine SULFATE 25 MG/5 ML(5MG/ML) SYRINGE As Ordered ONE ×2 (18:25→18:40)
[2020-02-15] MEDS ORDERED: PHENYLephrine HCL 500 MCG/5 ML (100MCG/ML) SYRINGE (J2370) As Ordered ONE ×2 (18:25→18:40)
[2020-02-15] MEDS ORDERED: ceFAZolin 2 GM/D5W 50 ML IV BAG (J0690 PER 500MG) IV ONE (18:36)
--- NOTE | 2020-02-15 20:00 | ECGEPIP ---
[facility] - ED Test Date: 2020-02-15 Pat Name: HAWK FARLEY Department: Room: - Gender: Male [employer]her: SANJAY : 1950 Requested By: Eldon Garrido Order Number: [id number] Reading MD: Eldon Garrido Measurements Intervals Sinclair Rate: 67 P: 13 SD: 179 QRS: -4 QRSD: 84 T: 14 QT: 405 QTc: 430 Interpretive Statements SINUS RHYTHM LOW QRS VOLTAGE IN PRECORDIAL LEADS MINIMAL ST DEPRESSION POSSIBLE INFERIOR INFARCT AGE UNDETERMINED CW 07/30/[address] T WAVE CHANGES Electronically Signed on 02-15-2020 19:59:54 EST by Eldon Garrido
[2020-02-15] MEDS: fentaNYL 100 MCG/2 ML INJECTION (J3010) IV PRN ×3 (20:17→20:29)
[2020-02-15] MEDS ORDERED: MULTIVITAMIN -ADULT INJECTION 10 ML, THIAMINE INJection 100 MG, FOLIC ACID 1 MG in NS 1... IV SCH (20:22)
[2020-02-15] MEDS ORDERED: MORPHINE 4 MG/ML 1ML VIAL/SYRINGE (J2270) IV PRN (20:30)
[2020-02-15] MEDS ORDERED: oxyCODONE 5MG TAB PO PRN (20:30)
[2020-02-15] MEDS ORDERED: LR 1,000 ML IV SCH (20:30)
[2020-02-15] MEDS ORDERED: PERCOCET 5MG/325MG TAB PO PRN (20:30)
[2020-02-15] MEDS ORDERED: ONDANSETRON 4MG/2ML VIAL IV PRN (20:30)
[2020-02-15 20:50] VITALS: BP 142/74
[2020-02-15 21:00] VITALS: BP 142/74
[2020-02-15 21:30] VITALS: BP 149/75
[2020-02-15] MEDS: ASPIRIN 81 MG CHEW TABLET PO SCH (21:55)
[2020-02-15] MEDS: ceFAZolin SOD 2 GM in IV 1 EA IV SCH (21:55)
[2020-02-15] MEDS: PERCOCET 5MG/325MG TAB PO PRN (21:56)
[2020-02-15 22:30] VITALS: BP 140/73
[2020-02-15 23:30] VITALS: BP_SYST 144; BP_SYST 165; BP_DIAS 76; BP_DIAS 83
[2020-02-16] VITALS (10 sets, daily range): BP systolic 129–165; BP diastolic 77–92
[2020-02-16] MEDS ORDERED: LOSARTAN 50MG TABLET PO ONE (00:30)
[2020-02-16] MEDS: PROMETHAZINE INJ 25 MG/ML VIAL (J2550) IV PRN ×2 (01:11→08:49)
[2020-02-16] MEDS ORDERED: ONDANSETRON 4 MG ORAL DISINTEGRATING TAB PO ONE (01:30)
[2020-02-16] MEDS: ceFAZolin SOD 2 GM in IV 1 EA IV SCH ×4 (03:48→20:40)
[2020-02-16] MEDS: PERCOCET 5MG/325MG TAB PO PRN ×3 (03:49→20:39)
[2020-02-16] MEDS ORDERED: MORPHINE 4 MG/ML 1ML VIAL/SYRINGE (J2270) IV ONE (06:45)
[2020-02-16] MEDS ORDERED: PERCOCET 5MG/325MG TAB PO PRN (06:45)
[2020-02-16 07:20] LABS: BASO % 0.3 % (0.0-1.0); HEMATOCRIT 26.9 % (42.0-52.0); HEMOGLOBIN 8.8 g/dl (13.5-17.5); LYMPH # 0.4 10^3/uL (1.5-5.0); LYMPH % 6.2 % (24.0-44.0); MEAN CORPUSCULAR HGB CONC 32.7 g/dl (32.0-36.5); MONO # 0.8 10^3/uL (0.0-0.8); MONO % 12.7 % (0.0-5.0); NEUTROPHILS # 5.1 10^3/uL (1.5-8.5); RED BLOOD COUNT 2.38 10^6/uL (4.30-6.10); WHITE BLOOD COUNT 6.3 10^3/uL (4.0-10.0)
[2020-02-16 07:22] LABS: PLATELET COUNT, AUTOMATED 83 10^3/uL (150-450)
--- NOTE | 2020-02-16 07:31 | REP ---
INDICATION: ORIF IN OR COMPARISON: 02/15/2020 TECHNIQUE: Intraoperative fluoroscopic imaging using portable C-arm technique. FINDINGS: Patient is status post intramedullary dustin placement and satisfactory fixation/reduction for tibial fracture. Total fluoroscopic time 106.6 seconds. IMPRESSION: Status post satisfactory open reduction and fixation for tibial fracture. <Electronically signed by Tobias Foster > 02/16/20 0727
[2020-02-16 07:41] LABS: CREATININE FOR GFR 1.5 MG/DL (0.70-1.30); GLOMERULAR FILTRATION RATE 49.5 (>49); POTASSIUM SERUM 4.6 MEQ/L (3.5-5.1)
[2020-02-16 07:42] LABS: CALCIUM LEVEL 8.8 MG/DL (8.8-10.2); MAGNESIUM LEVEL 1.5 MG/DL (1.8-2.4)
[2020-02-16] MEDS ORDERED: NS 1,000 ML IV SCH (08:45)
[2020-02-16] MEDS: MIRALAX *UNIT DOSE* 17GM PACKET PO SCH (09:00)
[2020-02-16] MEDS: METAMUCIL (PSYLLIUM) PACKET PO SCH (09:00)
--- NOTE | 2020-02-16 09:28 | REP ---
INDICATION: post op, DrSujatha request COMPARISON: None. TECHNIQUE: AP, and lateral views of the right tibia/fibula. FINDINGS: Patient is status post intramedullary dustin placement with satisfactory open reduction/fixation of the distal tibial shaft fracture. Nondisplaced oblique fractures of the proximal and distal fibula noted. IMPRESSION: Status post satisfactory open reduction and fixation. <Electronically signed by Tobias Foster > 02/16/20 0941
[2020-02-16] MEDS: OXAZEPAM 10 MG CAP PO SCH ×3 (09:48→22:24)
[2020-02-16] MEDS: atenoloL 25 MG TAB PO SCH ×2 (09:49→20:43)
[2020-02-16] MEDS: FOLIC ACID 1 MG TAB PO SCH (09:50)
[2020-02-16] MEDS: GABAPENTIN 100 MG CAP PO SCH ×2 (09:50→20:38)
[2020-02-16] MEDS: THIAMINE 100 MG TAB PO SCH (09:50)
[2020-02-16] MEDS: MULTIVITAMINS/MINERALS THERAP 1 TAB PO SCH (09:50)
[2020-02-16] MEDS: MOM 30ML SUSPENSION UDC PO SCH (09:50)
[2020-02-16] MEDS: ATORVASTATIN 20 MG TAB PO SCH (09:50)
[2020-02-16] MEDS: ASPIRIN 81 MG CHEW TABLET PO SCH ×2 (09:50→20:38)
[2020-02-16 10:13] LABS: VITAMIN B12 LEVEL 828 PG/ML
[2020-02-16 10:14] LABS: FOLATE 7.8 NG/ML
[2020-02-16 10:59] LABS: ALBUMIN 3.4 GM/DL (3.2-5.2); BILIRUBIN,DIRECT 0.5 MG/DL (0.0-0.2); BILIRUBIN,TOTAL 1.1 MG/DL (0.2-1.0); TOTAL PROTEIN 6.3 GM/DL (6.4-8.2)
[2020-02-16] MEDS: MAG SULF 1GM/100ML (MAG RUN) 1 GM in IV 1 EA IV SCH ×2 (11:02→12:28)
--- NOTE | 2020-02-16 11:28 | IPNPDOC ---
Text Note Date of Service The patient was seen on 02/16/20. NOTE Subjective: Patient is a 69-year-old male with a PMHx of HTN, DLP, Prostate CA (s/p Prostatectomy 06/2014, follows annual PSA), Neuropathy (Follows with Neurology) who presented to the ER with right leg pain. Patient reports that yesterday evening he must have fallen, does not recall falling, but does report drinking approximately 3-4 drinks of scotch each 2-3 ounces. Patient woke up this morning with right leg pain. Reports pain as a 7/10 aching, throbbing nature, worsened with movement, alleviated with rest and pain medications. Patient was admitted to the hospital service for further evaluation and treatment. Orthopedic surgery was called on consultation. Patient was seen and examined at the bedside. Currently patient denies any chest pain, shortness of breath or palpitations. Reports some nausea but denies any vomiting. Denies any abdominal discomfort, diarrhea, or urinary discomfort. Objective: Vitals (See below) General: Lying in bed, appears comfortable, AAOx3 HEENT: NC, AT CVS: +S1S2 Lungs: Fair air entry b/l, no appreciable wheezing / rhonchi / rales Abdomen: Soft, nondistended and nontender Extremities: Right leg in dressing, LE are without any edema, - Calf tenderness Imaging: CT head 02/14: Age related atrophy and microvascular ischemic changes. No acute intracranial hemorrhage, infarction, or mass/mass effect. Ankle XR 02/14: Oblique fractures of the distal tibial shaft and distal fibular metaphysis. Foot XR 02/14: No acute cardiopulmonary process appreciated. Foot XR 02/14: Generalized age-related changes. Acute versus likely old fracture at the base of the 5th metatarsal bone should be correlated with physical examination. No other fracture or dislocation identified or suspected. XR Tib/Fib 02/14: Oblique fractures of the proximal and distal fibula and oblique fracture of the distal tibia. XR Tib/Fib 02/15: Status post satisfactory open reduction and fixation. Assessment and plan: Right leg pain - likely 2/2 oblique fracture of proximal and distal fibula and oblique fracture of distal tibia - s/p correction (POD#1) - Patient reports a fall while at home and came to the ER with R leg pain - Imaging noted above - Patient is scheduled to go to the OR today is for correction - Patient is medically optimized at low-moderate risk for low risk surgery; discussed risks and benefits of surgery with patient; patient has verbalized understanding - Discuss case with orthopedic surgery, Dr. James Bazzi - Pain control, anticoagulation and physical therapy at the direction of orthopedic surgery Fall at home - likely 2/2 intoxication - EKG reviewed without any ischemic changes - Ethanol level noted to be elevated on admission Alcohol abuse - Patient reports a regular use of alcohol; Ethanol level elevated on admission - Currently patient is fully oriented to person, place and time - No prior history of alcohol withdrawal - c/wh thiamine, folate, and multivitamins - c/w CIWA protocol post-operatively - Will start Serax today Elevated Cr - Patients Cr baseline appears to 1.1-1.6 - Will hold nephrotoxic medications - Will start gentle IV fluid hydration Transaminitis - likely 2/2 alcohol abuse - Patient was notified by his primary provider that his liver enzymes were elevated and had attributed to alcohol use - Improving - Hepatic US 11/12: Hepatosteatosis. Mildly heterogeneous pancreatic parenchyma possibly from fatty replacement. Clinical correlation for pancreatitis is recommended. Otherwise, negative abdominal right upper quadrant ultrasound. - Will check hepatitis profile - Patient has been advised to abstain from alcohol use Macrocytic anemia - AOCD / EtoH, possibly acutely worsened with fracture - Hemoglobin appears to be slightly lower than baseline (~11-12) - Reticulocyte index 0.43; suggesting hypoproliferative - Will continue to monitor; - Patient has been advised to abstain from alcohol use Thrombocytopenia - Platelet count appears to be lower than baseline - Will continue to follow HTN - BP mildly elevated - Will continue to hold Losartan (re: Elevated Cr) - c/w Atenolol with hold parameters DLP - c/w Atorvastatin Prostate CA - s/p Prostatectomy 06/2014, follows annual PSA Neuropathy - c/w Gabapentin - Follows with Neurology Gastrointestinal prophylaxis - c/w Protonix DVT prophylaxis - Will start Heparin SQ if alright with surgery Disposition: - Will c/w PT and OT - Will likely require rehab VS,Fishbone, I+O VS, Fishbone, I+O Laboratory Tests 02/15/20 11:57 02/16/20 06:31 Vital Signs Date Time Temp Pulse Resp B/P (MAP) Pulse Ox O2 Delivery O2 Flow Rate FiO2 02/16/20 10:00 97.8 105 20 154/89 (110) 96 Nasal Cannula 2.0 I&O- Last 24 Hours up to 6 AM 02/16/20 06:00 Intake Total 2530 ml Output Total 500 ml Balance 2030 ml MARY ARANA MD Feb 16, 2020 11:28
[2020-02-16 12:12] LABS: HEPATITIS B SURFACE ANTIGEN NEGATIVE (NEGATIVE)
[2020-02-16] MEDS: HEPARIN SOD (PORCINE) 5000UNITS/ML 1ML VIAL/SYRINGE SQ SCH ×2 (12:37→22:25)
[2020-02-16 12:40] LABS: HEPATITIS B CORE ANTIBODY IGM NEGATIVE (NEGATIVE)
[2020-02-16 12:42] LABS: HEPATITIS A ANTIBODY IGM NEGATIVE (NEGATIVE)
[2020-02-17] VITALS (12 sets, daily range): BP systolic 109–154; BP diastolic 56–85
[2020-02-17] MEDS: ceFAZolin SOD 2 GM in IV 1 EA IV SCH ×4 (03:24→20:34)
[2020-02-17] MEDS: OXAZEPAM 10 MG CAP PO SCH ×3 (05:29→22:45)
[2020-02-17] MEDS: PERCOCET 5MG/325MG TAB PO PRN ×3 (05:29→20:33)
[2020-02-17 06:59] LABS: BASO % 0.2 % (0.0-1.0); EOS # 0.1 10^3/uL (0.0-0.5); EOS % 1.3 % (0.0-3.0); HEMATOCRIT 23.9 % (42.0-52.0); HEMOGLOBIN 7.6 g/dl (13.5-17.5); LYMPH # 0.6 10^3/uL (1.5-5.0); LYMPH % 9.8 % (24.0-44.0); MEAN CORPUSCULAR HEMOGLOBIN 36.2 pg (27.0-33.0); MEAN CORPUSCULAR HGB CONC 31.8 g/dl (32.0-36.5); MEAN CORPUSCULAR VOLUME 113.8 fl (80.0-96.0); MONO # 0.4 10^3/uL (0.0-0.8); MONO % 6.8 % (0.0-5.0); NEUTROPHILS # 5.2 10^3/uL (1.5-8.5); NEUTROPHILS % 81.3 % (36.0-66.0); WHITE BLOOD COUNT 6.3 10^3/uL (4.0-10.0)
[2020-02-17 07:16] LABS: PLATELET COUNT, AUTOMATED 66 10^3/uL (150-450)
[2020-02-17 07:25] LABS: CALCIUM LEVEL 8.9 MG/DL (8.8-10.2); CREATININE FOR GFR 1.45 MG/DL (0.70-1.30); GLOMERULAR FILTRATION RATE 51.5 (>49); MAGNESIUM LEVEL 2.3 MG/DL (1.8-2.4); POTASSIUM SERUM 4.7 MEQ/L (3.5-5.1)
--- NOTE | 2020-02-17 07:34 | RO ---
DATE OF OPERATION: 02/15/2020 PREOPERATIVE DIAGNOSIS: Open right tibia and fibula fracture. POSTOPERATIVE DIAGNOSIS: Open right tibia and fibula fracture. PROCEDURE PERFORMED: Irrigation and debridement of bone and soft tissue right open tib-fib fracture, treatment of right tib-fib fracture with intramedullary device/IM nail. SURGEON: James Bazzi MD ANESTHESIA: Spinal. ESTIMATED BLOOD LOSS: Less than 50 mL at the time of surgery. TOURNIQUET: None required to be inflated. COMPONENTS USED: Synthes suprapatellar tibial nail 10 mm x 375 mm and the appropriate 5 mm locking screws, double locked static proximal, double locked static distal. INDICATIONS: This 69-year-old male had a fall at home while intoxicated sustain an open fracture overnight, awoke in the morning unable to ambulate. CONSENT: Reviewed in detail with the patient who was quite lucid at the time of consent in the ER at approximately 2 o'clock in the afternoon. Constantino discussion of the pathology involved, the procedure proposed, alternatives such as casting and other issues, including risks such as pain, failure, infection, bleeding, blood loss, , loss of limb, need for more surgery, and other issues, and the patient would like to proceed. OPERATIVE COURSE: Identified in the holding area, site and side identified. Brought to the operating room. Prepped and draped in the usual fashion using Betadine-type solution. Next, the tourniquet was high on the thigh, but not inflated. Next, the extremity had a 0.5 cm puncture wound at its medial aspect. There was considerable bleeding active on the dressing. This puncture wound is extended proximally and distally to expose the fracture site, and I debrided the fracture hematoma, irrigated using saline solution with cephalosporin antibiotic in it, and explored for any debris. There was a very sharp bone spur at the distal aspect of the proximal fragment and this needed to be contoured at the conclusion of the case. Once the I&D was sufficiently accomplished, the incision was approximately 6 cm long altogether. We positioned with radiolucent triangles. I reduced the fracture using fraction reduction forceps, which held the fracture in line. Next, 4 cm proximal to the patella, I infiltrated with 1% Lidocaine with epinephrine, made an incision approximately 3 fingerbreadths long through the skin, subcuticular tissues, and then splitting the extensor mechanism to allow access to the proximal tibia with the suprapatellar nail. The nylon padded guide was installed. A guidewire was installed into the tibia, verified fluoroscopically in AP and lateral plane, over-drilled using the step drill, followed by exchange over the long guidewire, which was easily to pass through the distal tibia because the fracture was held in reduction by the clamps. Next, I reamed over the wire to a size 12 mm diameter with sufficient chatter. Next once this was accomplished, we then measured for the 375 nail. We obtained the 375 mm nail. We implanted the 375 mm nail. We locked proximally from medial to lateral by drilling and placing the appropriate length 5 mm screws. The initial screws were a bit too long and I did exchange for slightly shorter screws as we verified on fluoroscopy. Next, distal locking was accomplished by obtaining perfect circles with the fluoroscope and drilling and placing from medial to lateral the appropriate length screws. All screws were placed in the static locking holes. Next, the fracture reduction clamps were removed. The distal tip of the proximal fragment did align slightly prominently and I debrided this using a Oneil-Schulz to prevent abrasion on the skin. Final fluoroscopic images reflected what appeared to be a near anatomic reduction. Next, we again irrigated with saline solution and then, I closed the skin and subcuticular tissues in layer fashion using 0 as well as 2-0 PDS subcuticular, as well as rommel. Next, dressings were applied to all wounds. The patient was able to be then moved to the recovery room in good condition. Please further details, please refer to the medical record. TODD
--- NOTE | 2020-02-17 08:57 | CR ---
DATE OF CONSULTATION: 02/15/2020 CHIEF COMPLAINT: Right leg pain and bleeding; open fracture right tibia. HISTORY OF PRESENT ILLNESS: Mr. Carrizales is a 69-year-old gentleman who was at home, fell while at home, awoke in the morning unable to ambulate. There was bleeding. EMS was consulted and he was sent to the hospital for further evaluation. He has been having frequent falls lately. He has been drinking more with the COVID epidemic admittedly. He admits to drinking as much as a pint of liquor daily to myself and the hospitalist during our intake examination. He has been recently diagnosed with peripheral neuropathy of the extremities, but he is not a diabetic. He does not smoke cigarettes. 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 His medical record, intake, med list and other materials are reviewed and remanded to chart, including a history of hypertension managed with Lisinopril, no major orthopedic surgeries, hip or knee surgeries, previous tonsil or adenoid surgery uneventful. SOCIAL HISTORY: He admits to significant alcohol consumption. No smoking. He is , lives locally, and is employed. LABORATORY STUDIES: His blood alcohol level was quite significantly elevated in the Emergency Room; over 0.3 on admission. PHYSICAL EXAMINATION: He is alert, oriented, remarkably lucid. He is not short of breath. He is very conversant. He is not in distress. He registers pain with movement of the extremities. Decreased sensation to toes. Extremities seemed to be well perfused, however, with a palpable dorsalis pulse bilaterally including the fractured extremity. There is a pressure dressing on the right lower extremity, which is well padded, there is some bleeding on the dressing. He is also splinted. No effusion at the knee. No pain with hip rotation. There appears to be an isolated right lower extremity open injury. RADIOGRAPHS: Reviewed. Oblique distal tibial metaphysis fracture, distal fibular fracture, proximal fibular fracture as well. IMPRESSION: 1. Open fracture of right distal tibia along with fracture of the distal fibula, proximal fibula. 2. Alcohol abuse. RECOMMENDATIONS: I coordinated with the hospitalist, Dr. Martines, and with the Operating Room, Dr. Short, anesthesia and the Operating Room scheduling staff. Because this is an open fracture and it has been an open fracture for likely more than 8 hours at this point, I would expedite trying to get the patient to the Operating Room having the fracture irrigated, debrided and fixed in a prompt fashion. I think it is reasonable to proceed with surgery without additional significant delay. I coordinated with the hospitalist, who agreed with that position. Medical optimization on admission was accomplished through the hospitalist service. Further evaluation of his issues will need to be accomplished as well including his alcohol issues as he seems to be a high functioning individual despite consumption of significant quantities of alcohol. For further details, please refer to the medical record. I spent approximately 50 minutes with this patient directly as well as with the hospital stay and other personnel coordinating his care. TODD
[2020-02-17] MEDS: METAMUCIL (PSYLLIUM) PACKET PO SCH (09:00)
[2020-02-17] MEDS: MIRALAX *UNIT DOSE* 17GM PACKET PO SCH (09:00)
[2020-02-17] MEDS ORDERED: LOSARTAN 50MG TABLET PO SCH (09:00)
[2020-02-17] MEDS: MULTIVITAMINS/MINERALS THERAP 1 TAB PO SCH (09:09)
[2020-02-17] MEDS: ATORVASTATIN 20 MG TAB PO SCH (09:09)
[2020-02-17] MEDS: FOLIC ACID 1 MG TAB PO SCH (09:09)
[2020-02-17] MEDS: ASPIRIN 81 MG CHEW TABLET PO SCH ×2 (09:09→20:33)
[2020-02-17] MEDS: THIAMINE 100 MG TAB PO SCH (09:09)
[2020-02-17] MEDS: GABAPENTIN 100 MG CAP PO SCH ×2 (09:09→20:33)
[2020-02-17] MEDS: MOM 30ML SUSPENSION UDC PO SCH (09:09)
[2020-02-17] MEDS: atenoloL 25 MG TAB PO SCH ×2 (09:12→20:33)
--- NOTE | 2020-02-17 12:27 | IPNPDOC ---
Text Note Date of Service The patient was seen on 02/17/20. NOTE Subjective: Patient is a 69-year-old male with a PMHx of HTN, DLP, Prostate CA (s/p Prostatectomy 06/2014, follows annual PSA), Neuropathy (Follows with Neurology) who presented to the ER with right leg pain. Patient reports that yesterday evening he must have fallen, does not recall falling, but does report drinking approximately 3-4 drinks of scotch each 2-3 ounces. Patient woke up this morning with right leg pain. Reports pain as a 7/10 aching, throbbing nature, worsened with movement, alleviated with rest and pain medications. Patient was admitted to the hospital service for further evaluation and treatment. Orthopedic surgery was called on consultation. Patient was seen and examined at the bedside. Currently patient has had an uneventful evening. He denies any nausea, vomiting, chest pain, shortness of breath, belly pain, diarrhea, or urinary discomfort. Patient does report feeling fatigued. Objective: Vitals (See below) General: Patient is laying in bed, does not appear to be in any distress, appears comfortable, AAOx3 HEENT: NC, AT CVS: +S1S2 Lungs: Fair air entry b/l, no appreciable wheezing / rhonchi / rales Abdomen: Abdomen remains soft without distention or tenderness Extremities: No appreciable edema, R leg with dressing intact, - Calf tenderness Imaging: CT head 02/14: Age related atrophy and microvascular ischemic changes. No acute intracranial hemorrhage, infarction, or mass/mass effect. Ankle XR 02/14: Oblique fractures of the distal tibial shaft and distal fibular metaphysis. Foot XR 02/14: No acute cardiopulmonary process appreciated. Foot XR 02/14: Generalized age-related changes. Acute versus likely old fracture at the base of the 5th metatarsal bone should be correlated with physical examination. No other fracture or dislocation identified or suspected. XR Tib/Fib 02/14: Oblique fractures of the proximal and distal fibula and oblique fracture of the distal tibia. XR Tib/Fib 02/15: Status post satisfactory open reduction and fixation. Assessment and plan: Right leg pain - likely 2/2 oblique fracture of proximal and distal fibula and oblique fracture of distal tibia - s/p correction (POD#2) - Patient reports a fall while at home and came to the ER with R leg pain - Imaging noted above - Orthopedic surgery, Dr. James Bazzi on consultation - Pain control, anticoagulation and physical therapy at the direction of orthopedic surgery Fall at home - likely 2/2 intoxication - EKG reviewed without any ischemic changes - Ethanol level noted to be elevated on admission Alcohol abuse - Patient reports a regular use of alcohol; Ethanol level elevated on admission - Currently patient is fully oriented to person, place and time - No prior history of alcohol withdrawal - c/wh thiamine, folate, and multivitamins - c/w CIWA protocol post-operatively - c/w Serax at current dose CKD3 - Patients Cr baseline appears to 1.1-1.6; currently at baseline - Will hold nephrotoxic medications - s/p IV fluids Transaminitis - likely 2/2 alcohol abuse - Patient was notified by his primary provider that his liver enzymes were elevated and had attributed to alcohol use - Improving - Hepatic US 11/12: Hepatosteatosis. Mildly heterogeneous pancreatic parenchyma possibly from fatty replacement. Clinical correlation for pancreatitis is recommended. Otherwise, negative abdominal right upper quadrant ultrasound. - Will check hepatitis profile - Patient has been advised to abstain from alcohol use Macrocytic anemia - AOCD / EtoH, possibly acutely worsened with fracture - Hemoglobin appears to be slightly lower than baseline (~11-12) - Reticulocyte index 0.43; suggesting hypoproliferative - Hg has trended down - Patient has been advised to abstain from alcohol use - Will transfuse 2 units PRBC Thrombocytopenia - Platelet count appears to be lower than baseline - Will continue to follow HTN - BP mildly elevated - Will continue to hold Losartan (re: Elevated Cr) - c/w Atenolol with hold parameters DLP - c/w Atorvastatin Prostate CA - s/p Prostatectomy 06/2014, follows annual PSA Neuropathy - c/w Gabapentin - Follows with Neurology Gastrointestinal prophylaxis - c/w Protonix DVT prophylaxis - c/w TEDs/Sequentials Disposition: - c/w PT and OT - Will likely require rehab VS,Fishbone, I+O VS, Fishbone, I+O Laboratory Tests 02/17/20 06:42 Vital Signs Date Time Temp Pulse Resp B/P (MAP) Pulse Ox O2 Delivery O2 Flow Rate FiO2 02/17/20 10:00 100.2 93 18 146/85 (105) 100 Room Air 02/16/20 10:00 2.0 I&O- Last 24 Hours up to 6 AM 02/17/20 06:00 Intake Total 1700 ml Output Total 875 ml Balance 825 ml MARY ARANA MD Feb 17, 2020 12:27
--- NOTE | 2020-02-17 18:04 | REPVR ---
PROCEDURE INFORMATION: Exam: CT Head Without Contrast Exam date and time: 02/17/2020 5:30 PM Age: 69 years old Clinical indication: Pain; Headache; Additional info: Weakness TECHNIQUE: Imaging protocol: Computed tomography of the head without contrast. Radiation optimization: All CT scans at this facility use at least one of these dose optimization techniques: automated exposure control; mA and/or kV adjustment per patient size (includes targeted exams where dose is matched to clinical indication); or iterative reconstruction. COMPARISON: CT Head without contrast 02/15/2020 12:12 PM FINDINGS: Brain: Mild nonspecific hypodensities of the periventricular and deep subcortical white matter, most likely secondary to chronic small vessel ischemic change. No intracranial hemorrhage or extra-axial fluid collection. No evidence of mass effect or midline shift. Martines-white matter differentiation is normal. Cerebral ventricles: Mild prominence of the ventricles and sulci, most likely attributed to parenchymal volume loss. Bones/joints: No acute osseus lesion or fracture. Paranasal sinuses: Visualized sinuses are unremarkable. No fluid levels. Mastoid air cells: Unremarkable. Soft tissues: Unremarkable. IMPRESSION: 1. No acute intracranial pathology. 2. Other chronic findings, as above. Electronically signed by: Fausto Odell On 02/17/2020 18:04:18 PM
--- NOTE | 2020-02-17 18:10 | REPVR ---
PROCEDURE INFORMATION: Exam: CT Abdomen And Pelvis Without Contrast Exam date and time: 02/17/2020 5:30 PM Age: 69 years old Clinical indication: Abdominal pain; Additional info: Weakness TECHNIQUE: Imaging protocol: Computed tomography of the abdomen and pelvis without contrast. Axial, coronal and sagittal reformatted images were created and reviewed. Radiation optimization: All CT scans at this facility use at least one of these dose optimization techniques: automated exposure control; mA and/or kV adjustment per patient size (includes targeted exams where dose is matched to clinical indication); or iterative reconstruction. COMPARISON: LIVER US 11/04/2019 8:21 AM FINDINGS: Liver: Mild hepatomegaly. Diffuse hepatic steatosis. Gallbladder and bile ducts: No radiodense gallstones. No biliary ductal dilatation. Pancreas: Mild peripancreatic stranding and edema, predominantly about the distal body and tail. No hemorrhage. Spleen: Unremarkable. Adrenal glands: Normal. No mass. Kidneys and ureters: No mass. No radiodense calculi. No hydronephrosis. Stomach and bowel: Submucosal fat deposition in the duodenum, suggesting chronic inflammation. Scattered colonic diverticula without evidence of diverticulitis. No obstruction. No bowel wall thickening. No pneumatosis. Appendix: Normal. Intraperitoneal space: No free fluid. No organized fluid collection. No free air. Vasculature: Moderate atherosclerotic disease. No aneurysm. Lymph nodes: No pathologically enlarged lymph nodes. Urinary bladder: Unremarkable as visualized. Reproductive: Status post prostatectomy. Bones/joints: No acute osseous abnormality. Osteopenia. Degenerative changes. Soft tissues: Unremarkable. IMPRESSION: 1. Limited noncontrast examination. 2. Mild peripancreatic stranding and edema, predominantly about the distal body and tail, concerning for acute pancreatitis. Correlate with serum amylase and lipase levels. No drainable fluid collection. No hemorrhage. 3. Additional findings, as above. Electronically signed by: Joey Solomon On 02/17/2020 18:09:52 PM
--- NOTE | 2020-02-17 18:12 | REPVR ---
PROCEDURE INFORMATION: Exam: CT Chest Without Contrast; Diagnostic Exam date and time: 02/17/2020 5:30 PM Age: 69 years old Clinical indication: Chest pain; Additional info: Weakness TECHNIQUE: Imaging protocol: Diagnostic computed tomography of the chest without contrast. Axial, coronal and sagittal reformatted images were created and reviewed. Radiation optimization: All CT scans at this facility use at least one of these dose optimization techniques: automated exposure control; mA and/or kV adjustment per patient size (includes targeted exams where dose is matched to clinical indication); or iterative reconstruction. COMPARISON: CR Chest, 1 view 02/15/2020 11:59 AM FINDINGS: Lungs: Linear/discoid stranding and groundglass at the lung bases, likely due to atelectasis and/or scarring. No consolidation. Pleural space: Trace pleural effusions. No pneumothorax. Heart: Unremarkable. No cardiomegaly. No pericardial effusion. Aorta: Mild atherosclerotic disease. No aneurysm. Lymph nodes: No pathologically enlarged lymph nodes. Bones/joints: No acute osseous abnormality. Osteopenia. Degenerative changes. Soft tissues: Unremarkable. IMPRESSION: 1. Limited noncontrast examination. 2. Trace pleural effusions. 3. Additional findings, as above. Electronically signed by: Joey Solomon On 02/17/2020 18:12:54 PM
[2020-02-17 20:12] LABS: FREE T4 1.28 NG/DL (0.76-1.46); THYROID STIMULATING HORMONE 1.56 uIU/ML (0.358-3.740)
[2020-02-17] MEDS ORDERED: NS 1,000 ML IV SCH (20:47)
[2020-02-18 00:11] VITALS: BP 111/67
[2020-02-18 00:12] VITALS: BP 111/67
[2020-02-18] MEDS: ceFAZolin SOD 2 GM in IV 1 EA IV SCH ×2 (03:12→08:23)
[2020-02-18] MEDS: OXAZEPAM 10 MG CAP PO SCH ×3 (05:32→22:29)
[2020-02-18 06:00] VITALS: BP 141/78
[2020-02-18 06:42] LABS: BASO % 0.3 % (0.0-1.0); EOS # 0.1 10^3/uL (0.0-0.5); EOS % 1.9 % (0.0-3.0); HEMOGLOBIN 8.9 g/dl (13.5-17.5); LYMPH # 0.6 10^3/uL (1.5-5.0); MEAN CORPUSCULAR HEMOGLOBIN 35.3 pg (27.0-33.0); MEAN CORPUSCULAR VOLUME 107.1 fl (80.0-96.0); MONO # 0.5 10^3/uL (0.0-0.8); MONO % 8.1 % (0.0-5.0); NEUTROPHILS % 78.7 % (36.0-66.0); RED BLOOD COUNT 2.52 10^6/uL (4.30-6.10); WHITE BLOOD COUNT 6.3 10^3/uL (4.0-10.0)
[2020-02-18 06:43] LABS: PLATELET COUNT, AUTOMATED 72 10^3/uL (150-450)
[2020-02-18 07:13] LABS: ALBUMIN 2.7 GM/DL (3.2-5.2); ALT/SGPT 54 U/L (12-78); BILIRUBIN,DIRECT 0.5 MG/DL (0.0-0.2); BLOOD UREA NITROGEN 37 MG/DL (7-18); CARBON DIOXIDE LEVEL 25 MEQ/L (21-32); CHLORIDE LEVEL 109 MEQ/L (98-107); GLOMERULAR FILTRATION RATE > 60.0 (>49); GLUCOSE, FASTING 92 MG/DL (70-100); LIPASE 1581 U/L (73-393); MAGNESIUM LEVEL 2.4 MG/DL (1.8-2.4); POTASSIUM SERUM 3.8 MEQ/L (3.5-5.1); SODIUM LEVEL 142 MEQ/L (136-145); TOTAL PROTEIN 5.2 GM/DL (6.4-8.2); TRIGLYCERIDES LEVEL 108 MG/DL (<150)
[2020-02-18] MEDS ORDERED: CLINDAMYCIN 150MG CAPSULE PO SCH (08:00)
[2020-02-18] MEDS: THIAMINE 100 MG TAB PO SCH (08:23)
[2020-02-18] MEDS: FOLIC ACID 1 MG TAB PO SCH (08:23)
[2020-02-18] MEDS: MOM 30ML SUSPENSION UDC PO SCH (08:23)
[2020-02-18] MEDS: GABAPENTIN 100 MG CAP PO SCH ×2 (08:23→20:02)
[2020-02-18] MEDS: ASPIRIN 81 MG CHEW TABLET PO SCH ×2 (08:23→20:02)
[2020-02-18] MEDS: ATORVASTATIN 20 MG TAB PO SCH (08:23)
[2020-02-18] MEDS: MULTIVITAMINS/MINERALS THERAP 1 TAB PO SCH (08:23)
[2020-02-18] MEDS: MIRALAX *UNIT DOSE* 17GM PACKET PO SCH ×2 (08:24→08:49)
[2020-02-18] MEDS: METAMUCIL (PSYLLIUM) PACKET PO SCH ×2 (08:24→08:49)
[2020-02-18] MEDS: atenoloL 25 MG TAB PO SCH ×2 (08:24→20:03)
[2020-02-18] MEDS: PERCOCET 5MG/325MG TAB PO PRN ×4 (08:39→22:30)
[2020-02-18] MEDS: CEPHALEXIN 500 MG CAP PO SCH ×4 (08:40→20:03)
--- NOTE | 2020-02-18 10:17 | REP ---
INDICATION: Evaluate for cirrhosis COMPARISON: 11/04/2019 TECHNIQUE: Real time stanley scale ultrasound examination using curved array transducer. FINDINGS: The liver is hyperechoic with poor through transmission suggesting fatty infiltration and/or hepatocellular disease. No focal hepatic lesion identified. Complete evaluation of the liver is limited. Visualized portions of the pancreas are unremarkable. Gallbladder demonstrates layering sludge without wall thickening or obvious pericholecystic fluid. No obvious biliary ductal dilatation is appreciated. The common bile duct is not identifiable due to technical factors and decreased sonographic visualization through the liver. Right kidney is normal in reniform shape without hydronephrosis and measures 13.8 x 6.5 x 6.2 cm. No obvious ascites in the right upper quadrant. IMPRESSION: Significantly limited examination due to hyperechoic dense liver. <Electronically signed by Tobias Foster > 02/18/20 [id number]
--- NOTE | 2020-02-18 10:57 | IPNPDOC ---
Text Note Date of Service The patient was seen on 02/18/20. NOTE Subjective: Patient is a 69-year-old male with a PMHx of HTN, DLP, Prostate CA (s/p Prostatectomy 06/2014, follows annual PSA), Neuropathy (Follows with Neurology) who presented to the ER with right leg pain. Patient reports that yesterday evening he must have fallen, does not recall falling, but does report drinking approximately 3-4 drinks of scotch each 2-3 ounces. Patient woke up this morning with right leg pain. Reports pain as a 7/10 aching, throbbing nature, worsened with movement, alleviated with rest and pain medications. Patient was admitted to the hospital service for further evaluation and treatment. Orthopedic surgery was called on consultation. Patient was seen and examined at the bedside. Patient is laying in bed, appears to be comfortable. He denies any shortness of breath, cough or palpitations. Has not experience any chest pain. Patient reports this evening was uneventful. Has not experience any further nausea, vomiting, abdominal pain or constipation. Patient has had a bowel movement yesterday afternoon. F had an extensive discussion with the patient's son and daughter were concerned that their father. Has not been following up with their primary care provider. He has failed to receive any cancer screenings including colonoscopies. They feel that he may have an underlying medical condition that is not diagnosed. They mentioned that a year ago patient was very functional and active, however, has had some decline and poor hygiene recently. Objective: Vitals (See below) General: Patient is laying in bed, does not appear to be in any distress, is speaking in full sentences and appears to be comfortable, awake/alert, oriented 3 HEENT: NC, AT CVS: +S1S2 Lungs: Auscultation has revealed fair air entry bilaterally without any evidence of crackles, rhonchi or wheezing Abdomen: Abdomen again does not appear to be distended and is soft, without any appreciable tenderness Extremities: Lower tremors are without any edema, right leg with dressing in place, appears to have some saturation with blood, - Calf tenderness Imaging: CT head 02/14: Age related atrophy and microvascular ischemic changes. No acute intracranial hemorrhage, infarction, or mass/mass effect. Ankle XR 02/14: Oblique fractures of the distal tibial shaft and distal fibular metaphysis. Foot XR 02/14: No acute cardiopulmonary process appreciated. Foot XR 02/14: Generalized age-related changes. Acute versus likely old fracture at the base of the 5th metatarsal bone should be correlated with physical examination. No other fracture or dislocation identified or suspected. XR Tib/Fib 02/14: Oblique fractures of the proximal and distal fibula and oblique fracture of the distal tibia. XR Tib/Fib 02/15: Status post satisfactory open reduction and fixation. Liver US 02/16: Significantly limited examination due to hyperechoic dense liver. CT Head 02/16: 1. No acute intracranial pathology. 2. Other chronic findings, as above. - Cerebral ventricles: Mild prominence of the ventricles and sulci, most likely attributed to parenchymal volume loss. CT chest 02/16: 1. Limited noncontrast examination. 2. Trace pleural effusions. 3. Additional findings, as above. CT abdomen / pelvis 02/16: 1. Limited noncontrast examination. 2. Mild peripancreatic stranding and edema, predominantly about the distal body and tail, concerning for acute pancreatitis. Correlate with serum amylase and lipase levels. No drainable fluid collection. No hemorrhage. 3. Additional findings, as above. Assessment and plan: Right leg pain - likely 2/2 oblique fracture of proximal and distal fibula and oblique fracture of distal tibia - s/p correction (POD#3) - Patient reports a fall while at home and came to the ER with R leg pain - Imaging noted above - Orthopedic surgery, Dr. James Bazzi on consultation - Currently on Clindamycin; s/p Cefazolin (re: Open fracture) - Pain control and physical therapy at the direction of orthopedic surgery Fall at home - likely 2/2 intoxication with Alcohol - EKG reviewed without any ischemic changes - Ethanol level noted to be elevated on admission Alcohol abuse - Patient reports a regular use of alcohol; noted consumption of 3-4 drinks daily at 2-3 ounces each for >6 years - has noted that his consumption has incr eased - Ethanol level elevated on admission - Remains fully oriented to person, place and time - No prior history of alcohol withdrawal - c/w thiamine, folate, and multivitamins - c/w CIWA protocol post-operatively - c/w Serax - will continue current dose and taper down over the next 72 hours Acute pancreatitis - likely 2/2 EtOH - Patient denies any abdominal pain, nausea or vomiting - Physical without any tenderness - Elevated Lipase - Triglyceride levels noted - Liver US noted - CT imaging consistent with acute pancreatitis - s/p IV fluids - Will slowly advance diet Transaminitis - likely 2/2 alcohol abuse - AST : ALT ratio of 2/3:1 - Patient was notified by his primary provider that his liver enzymes were elevated and had attributed to alcohol use - Continues to improve - Hepatic US 11/12: Hepatosteatosis. Mildly heterogeneous pancreatic parenchyma possibly from fatty replacement. Clinical correlation for pancreatitis is recommended. Otherwise, negative abdominal right upper quadrant ultrasound. - Hepatitis profile negative - Alpha-fetoprotein level pending - Patient has been advised to abstain from alcohol use Macrocytic anemia - AOCD / EtOH, possibly acutely worsened with fracture / oozing - Hemoglobin appears to be slightly lower than baseline (~11-12) - Reticulocyte index 0.43; suggesting hypoproliferative - Hg has trended down - s/p 2 units PRBC - Will check stool for occult blood - Patient has been advised to abstain from alcohol use - Will continue to follow H&H [id number] Positive blood culture - likely 2/2 contaminant - Has had low grade fevers on 02/16 - Remains hemodynamically stable - Blood culture 02/14 (1 of 2): Gram positive cocci in clusters - Blood cultures 02/16: No growth at 48 hours - Elevated ESR / CRP - however has had fracture - ECHO complete; report pending CKD3 - Patients Cr baseline appears to 1.1-1.6 - Cr improved - Will hold nephrotoxic medications - Will DC IV fluids Thrombocytopenia - Platelet count appears to be lower than baseline; possibly 2/2 R leg fracture / bleeding - Will continue to follow HTN - BP mildly elevated - Will continue to hold Losartan (re: Elevated Cr) - c/w Atenolol with hold parameters DLP - c/w Atorvastatin Prostate CA - s/p Prostatectomy 06/2014 - Follows annual PSA - Will check PSA - Follows with PCP only; stopped following Urology Neuropathy - likely 2/2 Alcoholism - c/w Gabapentin - Neurology has been consulted; follows with [facility] as an outpatient - will have evaluation inpatient Gastrointestinal prophylaxis - c/w Protonix DVT prophylaxis - c/w TEDs/Sequentials Disposition: - c/w PT and OT VS,Fishbone, I+O VS, Fishbone, I+O Laboratory Tests 02/18/20 06:21 Vital Signs Date Time Temp Pulse Resp B/P (MAP) Pulse Ox O2 Delivery O2 Flow Rate FiO2 02/18/20 08:39 20 02/18/20 08:24 87 141/78 02/18/20 06:00 99.5 92 Room Air 02/16/20 10:00 2.0 I&O- Last 24 Hours up to 6 AM 02/18/20 06:00 Intake Total 2840 ml Output Total 751 ml Balance 2089 ml MARY ARANA MD Feb 18, 2020 10:57
[2020-02-18 12:13] LABS: HEMOGLOBIN 9.7 g/dl (13.5-17.5)
[2020-02-18 14:36] VITALS: BP 120/65
[2020-02-18 14:57] LABS: HEMOGLOBIN A1c 5.8 %
[2020-02-18 18:15] LABS: HEMATOCRIT 26.6 % (42.0-52.0); HEMOGLOBIN 8.6 g/dl (13.5-17.5)
[2020-02-18 22:00] VITALS: BP 119/65
[2020-02-19 00:28] LABS: HEMATOCRIT 26.1 % (42.0-52.0); HEMOGLOBIN 8.6 g/dl (13.5-17.5)
[2020-02-19] MEDS: PERCOCET 5MG/325MG TAB PO PRN ×3 (04:19→20:26)
[2020-02-19 06:00] VITALS: BP 152/80
[2020-02-19] MEDS: OXAZEPAM 10 MG CAP PO SCH ×2 (06:44→20:25)
[2020-02-19 07:06] LABS: BASO % 0.3 % (0.0-1.0); EOS # 0.2 10^3/uL (0.0-0.5); EOS % 2.5 % (0.0-3.0); HEMATOCRIT 27.4 % (42.0-52.0); HEMOGLOBIN 9.3 g/dl (13.5-17.5); LYMPH # 0.5 10^3/uL (1.5-5.0); LYMPH % 8.4 % (24.0-44.0); MEAN CORPUSCULAR HEMOGLOBIN 36.6 pg (27.0-33.0); MEAN CORPUSCULAR HGB CONC 33.9 g/dl (32.0-36.5); MEAN CORPUSCULAR VOLUME 107.9 fl (80.0-96.0); MONO # 0.6 10^3/uL (0.0-0.8); NEUTROPHILS % 78.8 % (36.0-66.0); PLATELET COUNT, AUTOMATED 116 10^3/uL (150-450); RED BLOOD COUNT 2.54 10^6/uL (4.30-6.10); WHITE BLOOD COUNT 6.3 10^3/uL (4.0-10.0)
[2020-02-19 07:32] LABS: ALBUMIN 2.7 GM/DL (3.2-5.2); ALT/SGPT 47 U/L (12-78); BILIRUBIN,DIRECT 0.5 MG/DL (0.0-0.2); BILIRUBIN,TOTAL 1.1 MG/DL (0.2-1.0); BLOOD UREA NITROGEN 32 MG/DL (7-18); CARBON DIOXIDE LEVEL 26 MEQ/L (21-32); CHLORIDE LEVEL 107 MEQ/L (98-107); CREATININE FOR GFR 1.03 MG/DL (0.70-1.30); GLOMERULAR FILTRATION RATE > 60.0 (>49); GLUCOSE, FASTING 104 MG/DL (70-100); MAGNESIUM LEVEL 2.6 MG/DL (1.8-2.4); POTASSIUM SERUM 3.8 MEQ/L (3.5-5.1); SODIUM LEVEL 138 MEQ/L (136-145); TOTAL PROTEIN 5.5 GM/DL (6.4-8.2)
--- NOTE | 2020-02-19 09:24 | IPNPDOC ---
Text Note Date of Service The patient was seen on 02/19/20. NOTE Subjective: Patient is a 69-year-old male with a PMHx of HTN, DLP, Prostate CA (s/p Prostatectomy 06/2014, follows annual PSA), Neuropathy (Follows with Neurology) who presented to the ER with right leg pain. Patient reports that yesterday evening he must have fallen, does not recall falling, but does report drinking approximately 3-4 drinks of scotch each 2-3 ounces. Patient woke up this morning with right leg pain. Reports pain as a 7/10 aching, throbbing nature, worsened with movement, alleviated with rest and pain medications. Patient was admitted to the hospital service for further evaluation and treatment. Orthopedic surgery was called on consultation. Patient was seen and examined at the bedside. Patient reports he has had an uneventful evening. He denies any chest pain, shortness of breath or palpitations. Has not experience any nausea, vomiting, abdominal pain, has had a bowel movement yesterday. Denies any urinary discomfort. Patient continues to work with physical therapy. I had a discussion with him about his alcohol consumption and stressed the importance that he remain completely abstinent of alcohol use. Patient is in terested in seeking counseling/rehabilitation as an outpatient. Objective: Vitals (See below) General: Laying in bed, does not appear to be in any distress, comfortable, [place] ke and alert 3 HEENT: NC, AT CVS: +S1S2 Lungs: Air entry appears to be fair bilaterally without any appreciable rhonchi, rales or wheezing Abdomen: Soft without any distention or tenderness, Obese Extremities: Lower extremities do not reveal any significant edema, right leg with dressing in place, - Calf tenderness Imaging: CT head 02/14: Age related atrophy and microvascular ischemic changes. No acute intracranial hemorrhage, infarction, or mass/mass effect. Ankle XR 02/14: Oblique fractures of the distal tibial shaft and distal fibular metaphysis. Foot XR 02/14: No acute cardiopulmonary process appreciated. Foot XR 02/14: Generalized age-related changes. Acute versus likely old fracture at the base of the 5th metatarsal bone should be correlated with phys ical examination. No other fracture or dislocation identified or suspected. XR Tib/Fib 02/14: Oblique fractures of the proximal and distal fibula and oblique fracture of the distal tibia. XR Tib/Fib 02/15: Status post satisfactory open reduction and fixation. Liver US 02/16: Significantly limited examination due to hyperechoic dense liver. CT Head 02/16: 1. No acute intracranial pathology. 2. Other chronic findings, as above. - Cerebral ventricles: Mild prominence of the ventricles and sulci, most likely attributed to parenchymal volume loss. CT chest 02/16: 1. Limited noncontrast examination. 2. Trace pleural effusions. 3. Additional findings, as above. CT abdomen / pelvis 02/16: 1. Limited noncontrast examination. 2. Mild peripancreatic stranding and edema, predominantly about the distal body and tail, concerning for acute pancreatitis. Correlate with serum amylase and lipase levels. No drainable fluid collection. No hemorrhage. 3. Additional findings, as above. Assessment and plan: Right leg pain - likely 2/2 oblique fracture of proximal and distal fibula and oblique fracture of distal tibia - s/p correction (POD#4) - Patient reports a fall while at home and came to the ER with R leg pain - Imaging noted above - Orthopedic surgery, Dr. James Bazzi on consultation - c/w Cefazolin; s/p Cefazolin (re: Open fracture) - Pain control, DVT prophylaxis and physical therapy at the direction of orthopedic surgery Fall at home - likely 2/2 intoxication with Alcohol - EKG reviewed without any ischemic changes - Ethanol level noted to be elevated on admission; normalized in 24 hours Alcohol abuse - Patient reports a regular use of alcohol; noted consumption of 3-4 drinks daily at 2-3 ounces each for >6 years - has noted that his consumption has increased - Ethanol level elevated on admission - This morning he is oriented to person, place and time - Discussed seeking counseling / rehabilitation - No prior history of alcohol withdrawal - c/w thiamine, folate, and multivitamins - c/w CIWA protocol post-operatively - c/w Serax; will reduce frequency today s/p Acute pancreatitis - likely 2/2 EtOH - Patient denies any abdominal pain, nausea or vomiting - Physical without any tenderness - Elevated Lipase - Triglyceride levels noted - Liver US noted - CT imaging consistent with acute pancreatitis - s/p IV fluids - Diet will be advanced today Transaminitis - likely 2/2 alcohol abuse - AST : ALT ratio of 2/3:1 - Patient was notified by his primary provider that his liver enzymes were elevated and had attributed to alcohol use - Enzymes trending down - Hepatic US 11/12: Hepatosteatosis. Mildly heterogeneous pancreatic parenchyma possibly from fatty replacement. Clinical correlation for pancreatitis is recommended. Otherwise, negative abdominal right upper quadrant ultrasound. - Hepatitis profile negative - Alpha-fetoprotein level negative - Patient has been advised to abstain from alcohol use; willing to seek Macrocytic anemia - AOCD / EtOH, possibly acutely worsened with fracture / oozing - Hemoglobin appears to be slightly lower than baseline (~11-12) - Reticulocyte index 0.43; suggesting hypoproliferative - Hg has remained stable after transfusion - s/p 2 units PRBC - Will check stool for occult blood - Patient has been advised to abstain from alcohol use - Patient has had a colonoscopy approximately 7 years ago and was noted to have polyps. He was advised to have the next screening completed 5 years after, however, has failed to follow-up - Patient has been advised to have a colonoscopy as an outpatient; patient has a verbalized understanding of this - . He reports his primary care provider is in the process of establishing this Positive blood culture - likely 2/2 contaminant (Staph Lugdunensis / Staph Hominis) - Remains hemodynamically stable - Blood culture 02/14 (1 of 2): Staph Lugdunensis / Staph Hominis - Blood cultures 02/16: No growth at 72 hours - Elevated ESR / CRP - however has had fracture - ECHO complete; report pending CKD3 - Patients Cr baseline appears to 1.1-1.6 - Cr improved - Will hold nephrotoxic medications - s/p IV fluids Thrombocytopenia - possibly 2/2 chronic alcoholism / acute fracture / bleeding - Platelet count appears to be lower than baseline; possibly 2/2 R leg fracture / bleeding - Improving HTN - BP mildly elevated - Will resume Losartan - c/w Atenolol with hold parameters DLP - c/w Atorvastatin Prostate CA - s/p Prostatectomy 06/2014 - Follows annual PSA - PSA remains low - Follows with PCP only; stopped following Urology Neuropathy - likely 2/2 Alcoholism - c/w Gabapentin - Neurology has been consulted; follows with [facility] as an outpatient - will have evaluation inpatient Gastrointestinal prophylaxis - c/w Protonix DVT prophylaxis - c/w TEDs/Sequentials - As per orthopedic surgery Disposition: - c/w PT and OT VS,Fishbone, I+O VS, Fishbone, I+O Laboratory Tests 02/18/20 11:56 02/18/20 18:04 02/19/20 00:07 02/19/20 06:33 Vital Signs Date Time Temp Pulse Resp B/P (MAP) Pulse Ox O2 Delivery O2 Flow Rate FiO2 02/19/20 06:00 98.5 84 17 152/80 (104) 98 Room Air 02/16/20 10:00 2.0 I&O- Last 24 Hours up to 6 AM 02/19/20 06:00 Intake Total 2550 ml Output Total 600 ml Balance 1950 ml MARY ARANA MD Feb 19, 2020 09:24
[2020-02-19] MEDS: FOLIC ACID 1 MG TAB PO SCH (10:31)
[2020-02-19] MEDS: ATORVASTATIN 20 MG TAB PO SCH (10:31)
[2020-02-19] MEDS: ASPIRIN 81 MG CHEW TABLET PO SCH ×2 (10:31→20:25)
[2020-02-19] MEDS: GABAPENTIN 100 MG CAP PO SCH ×2 (10:32→20:25)
[2020-02-19] MEDS: atenoloL 25 MG TAB PO SCH ×2 (10:32→20:30)
[2020-02-19] MEDS: LOSARTAN 50MG TABLET PO SCH ×2 (10:32→20:29)
[2020-02-19] MEDS: THIAMINE 100 MG TAB PO SCH (10:32)
[2020-02-19] MEDS: MULTIVITAMINS/MINERALS THERAP 1 TAB PO SCH (10:32)
[2020-02-19] MEDS: CEPHALEXIN 500 MG CAP PO SCH ×4 (10:33→20:26)
[2020-02-19] MEDS: MOM 30ML SUSPENSION UDC PO SCH (10:33)
[2020-02-19] MEDS: MIRALAX *UNIT DOSE* 17GM PACKET PO SCH (10:33)
[2020-02-19] MEDS: METAMUCIL (PSYLLIUM) PACKET PO SCH (10:33)
[2020-02-19 15:29] VITALS: BP 128/61
[2020-02-19 20:28] VITALS: BP 149/83
[2020-02-20] MEDS: PERCOCET 5MG/325MG TAB PO PRN ×5 (02:23→22:12)
[2020-02-20 06:00] VITALS: BP 151/84
[2020-02-20] MEDS ORDERED: ECOT81TA5 PO (06:57)
[2020-02-20 07:08] LABS: BASO % 0.4 % (0.0-1.0); EOS # 0.2 10^3/uL (0.0-0.5); EOS % 2.8 % (0.0-3.0); HEMATOCRIT 26.8 % (42.0-52.0); HEMOGLOBIN 8.7 g/dl (13.5-17.5); LYMPH # 0.5 10^3/uL (1.5-5.0); LYMPH % 8.9 % (24.0-44.0); MEAN CORPUSCULAR HEMOGLOBIN 35.1 pg (27.0-33.0); MEAN CORPUSCULAR HGB CONC 32.5 g/dl (32.0-36.5); MEAN CORPUSCULAR VOLUME 108.1 fl (80.0-96.0); MONO # 0.6 10^3/uL (0.0-0.8); MONO % 11.9 % (0.0-5.0); NEUTROPHILS # 4.1 10^3/uL (1.5-8.5); NEUTROPHILS % 75.4 % (36.0-66.0); PLATELET COUNT, AUTOMATED 142 10^3/uL (150-450); RED BLOOD COUNT 2.48 10^6/uL (4.30-6.10); WHITE BLOOD COUNT 5.4 10^3/uL (4.0-10.0)
[2020-02-20 07:34] LABS: ALBUMIN 2.6 GM/DL (3.2-5.2); ALT/SGPT 37 U/L (12-78); BILIRUBIN,DIRECT 0.4 MG/DL (0.0-0.2); BILIRUBIN,TOTAL 1.1 MG/DL (0.2-1.0); BLOOD UREA NITROGEN 27 MG/DL (7-18); CALCIUM LEVEL 7.9 MG/DL (8.8-10.2); CARBON DIOXIDE LEVEL 27 MEQ/L (21-32); CHLORIDE LEVEL 105 MEQ/L (98-107); CREATININE FOR GFR 1.14 MG/DL (0.70-1.30); GLOMERULAR FILTRATION RATE > 60.0 (>49); GLUCOSE, FASTING 123 MG/DL (70-100); MAGNESIUM LEVEL 2.5 MG/DL (1.8-2.4); POTASSIUM SERUM 3.4 MEQ/L (3.5-5.1); SODIUM LEVEL 137 MEQ/L (136-145); TOTAL PROTEIN 5.5 GM/DL (6.4-8.2)
[2020-02-20] MEDS: GABAPENTIN 100 MG CAP PO SCH ×2 (08:35→21:00)
[2020-02-20] MEDS: ATORVASTATIN 20 MG TAB PO SCH (08:36)
[2020-02-20] MEDS: FOLIC ACID 1 MG TAB PO SCH (08:36)
[2020-02-20] MEDS: OXAZEPAM 10 MG CAP PO SCH ×2 (08:36→21:07)
[2020-02-20] MEDS: ASPIRIN 81 MG CHEW TABLET PO SCH ×2 (08:36→21:07)
[2020-02-20] MEDS: atenoloL 25 MG TAB PO SCH ×2 (08:36→21:07)
[2020-02-20] MEDS: THIAMINE 100 MG TAB PO SCH (08:36)
[2020-02-20] MEDS: MULTIVITAMINS/MINERALS THERAP 1 TAB PO SCH (08:36)
[2020-02-20] MEDS: LOSARTAN 50MG TABLET PO SCH ×2 (08:36→21:08)
[2020-02-20] MEDS: CEPHALEXIN 500 MG CAP PO SCH ×4 (08:36→21:07)
[2020-02-20] MEDS: MOM 30ML SUSPENSION UDC PO SCH (08:37)
[2020-02-20] MEDS: MIRALAX *UNIT DOSE* 17GM PACKET PO SCH (08:37)
[2020-02-20] MEDS: METAMUCIL (PSYLLIUM) PACKET PO SCH (09:00)
[2020-02-20] MEDS ORDERED: POTASSIUM CHLORIDE 10 MEQ SR TABLET PO ONE (09:15)
--- NOTE | 2020-02-20 10:55 | IPNPDOC ---
Text Note Date of Service The patient was seen on 02/20/20. NOTE Subjective: Patient seen and examined at bedside. No acute overnight events reported. Patient this morning complains of general malaise and lethargy. Objective: Vitals (See below) General: Lying comfortably in bed, no acute distress HEENT: NC, AT CVS: +S1S2 Lungs: Clear to auscultation bilaterally Abdomen: Soft without any distention or tenderness, Obese Extremities: Lower extremities do not reveal any significant edema, right leg with dressing in place, - Calf tenderness A/P: 69M with a PMHx of HTN, DLP, Prostate CA (s/p Prostatectomy 06/2014, follows annual PSA), Neuropathy (Follows with Neurology) who presented to the ER with right leg pain. Patient reports that yesterday evening he must have fallen, does not recall falling, but does report drinking approximately 3-4 drinks of scotch each 2-3 ounces. Patient woke up this morning with right leg pain. Reports pain as a 7/10 aching, throbbing nature, worsened with movement, alleviated with rest and pain medications. Patient was admitted to the hospital service for further evaluation and treatment. Orthopedic surgery was called on consultation. #Right leg pain - likely 2/2 oblique fracture of proximal and distal fibula and oblique fracture of distal tibia - s/p correction (POD#4) - Patient reports a fall while at home and came to the ER with R leg pain - Imaging noted above - Orthopedic surgery, Dr. James Bazzi on consultation - c/w Cefazolin; s/p Cefazolin (re: Open fracture) - Pain control, DVT prophylaxis and physical therapy at the direction of orthopedic surgery #Fall at home - likely 2/2 intoxication with Alcohol - EKG reviewed without any ischemic changes - Ethanol level noted to be elevated on admission; normalized in 24 hours #Alcohol abuse - Patient reports a regular use of alcohol; noted consumption of 3-4 drinks daily at 2-3 ounces each for >6 years - has noted that his consumption has increased - Ethanol level elevated on admission - This morning he is oriented to person, place and time - Discussed seeking counseling / rehabilitation - No prior history of alcohol withdrawal - c/w thiamine, folate, and multivitamins - c/w CIWA protocol post-operatively - c/w Serax; will reduce frequency today #s/p Acute pancreatitis - likely 2/2 EtOH - Patient denies any abdominal pain, nausea or vomiting - Physical without any tenderness - Elevated Lipase - Triglyceride levels noted - Liver US noted - CT imaging consistent with acute pancreatitis - s/p IV fluids - Diet will be advanced today #Transaminitis - likely 2/2 alcohol abuse - AST : ALT ratio of 2/3:1 - Patient was notified by his primary provider that his liver enzymes were elevated and had attributed to alcohol use - Enzymes trending down - Hepatic US 11/12: Hepatosteatosis. Mildly heterogeneous pancreatic parenchyma possibly from fatty replacement. Clinical correlation for pancreatitis is recommended. Otherwise, negative abdominal right upper quadrant ultrasound. - Hepatitis profile negative - Alpha-fetoprotein level negative - Patient has been advised to abstain from alcohol use; willing to seek #Macrocytic anemia - AOCD / EtOH, possibly acutely worsened with fracture / oozing - Hemoglobin appears to be slightly lower than baseline (~11-12) - Reticulocyte index 0.43; suggesting hypoproliferative - Hg has remained stable after transfusion - s/p 2 units PRBC - Will check stool for occult blood - Patient has been advised to abstain from alcohol use - Patient has had a colonoscopy approximately 7 years ago and was noted to have polyps. He was advised to have the next screening completed 5 years after, however, has failed to follow-up - Patient has been advised to have a colonoscopy as an outpatient; patient has a verbalized understanding of this - . He reports his primary care provider is in the process of establishing this Positive blood culture - likely 2/2 contaminant (Staph Lugdunensis / Staph Hominis) - Remains hemodynamically stable - Blood culture 02/14 (1 of 2): Staph Lugdunensis / Staph Hominis - Blood cultures 02/16: No growth at 72 hours - Elevated ESR / CRP - however has had fracture - ECHO complete; report pending CKD3 - Patients Cr baseline appears to 1.1-1.6 - Cr improved - Will hold nephrotoxic medications - s/p IV fluids Thrombocytopenia - possibly 2/2 chronic alcoholism / acute fracture / bleeding - Platelet count appears to be lower than baseline; possibly 2/2 R leg fracture / bleeding - Improving HTN - BP mildly elevated - Will resume Losartan - c/w Atenolol with hold parameters DLP - c/w Atorvastatin Prostate CA - s/p Prostatectomy 06/2014 - Follows annual PSA - PSA remains low - Follows with PCP only; stopped following Urology Neuropathy - likely 2/2 Alcoholism - c/w Gabapentin - Neurology has been consulted; follows with [facility] as an outpatient - will have evaluation inpatient Gastrointestinal prophylaxis - c/w Protonix DVT prophylaxis - c/w TEDs/Sequentials - As per orthopedic surgery Dispo: will check H/H tomorrow, anticipating transitioning to ALC status, pending placement for sub-acute rehab. VS,Fishbone, I+O VS, Fishbone, I+O Laboratory Tests 02/20/20 06:45 Vital Signs Date Time Temp Pulse Resp B/P (MAP) Pulse Ox O2 Delivery O2 Flow Rate FiO2 02/20/20 08:36 151/84 02/20/20 08:36 77 02/20/20 07:13 18 02/20/20 06:00 98.8 99 Room Air 02/16/20 10:00 2.0 I&O- Last 24 Hours up to 6 AM 02/20/20 06:00 Intake Total 960 ml Output Total 0 ml Balance 960 ml STACI ZULETA MD Feb 20, 2020 10:55
--- NOTE | 2020-02-20 12:43 | ECHO ---
DATE OF PROCEDURE: 02/17/2020 Age: 69 Gender: Male Height: 185 cm Weight: 89 kg REFERRING PHYSICIAN: Kaci Lopez M.D. INDICATION: Heart failure, unspecified. MEASUREMENTS: 2D Measurements: Aortic root 3.5 cm Left ventricle diastole 4.4 cm Intraventricular septum 1.11 cm Posterior wall 1.12 cm Left atrium 3.7 cm Doppler Measurements: No aortic stenosis No aortic regurgitation No mitral regurgitation No mitral stenosis Very mild tricuspid regurgitation No pulmonic regurgitation Aortic valve velocity 133 cm/s LVOT velocity 86.8 cm/s Mitral E velocity 73.7 cm/s Mitral A velocity 75.4 cm/s Estimated right ventricular systolic pressure 25-30 mmHg Estimated right atrial pressure 5-10 mmHg Pulmonary artery acceleration time 129 msec MITRAL ANNULAR TISSUE DOPPLER E prime septal 6.6 cm/s, E prime lateral 6.85 cm/s DESCRIPTION: Rhythm was sinus. No pericardial effusion. This study was performed with the patient sitting and supine. Image quality was fair to moderately technically difficult. No subcostal acoustic window available (technically difficult). CONCLUSIONS: 1. Normal left ventricle internal dimensions and wall thickness. Normal regional left ventricular (LV) wall motion and wall thickening. Normal left ventricular (LV) systolic function. Left ventricular ejection fraction (LVEF) 65% by visual estimate. Grade 1 left ventricular (LV) diastolic dysfunction (impaired relaxation filling pattern). 2. Moderate aortic valve sclerosis of a 3-cuspid aortic valve. No aortic stenosis. No regurgitation. 3. Moderately technically difficult echocardiogram. 4. Otherwise normal appearing echocardiogram Doppler findings. MTDD
[2020-02-20 14:00] VITALS: BP 123/68
[2020-02-20 21:08] VITALS: BP 168/90
[2020-02-21] MEDS: PERCOCET 5MG/325MG TAB PO PRN ×4 (04:03→21:16)
[2020-02-21 06:50] VITALS: BP 138/73
[2020-02-21 07:24] LABS: BASO % 0.3 % (0.0-1.0); EOS # 0.2 10^3/uL (0.0-0.5); EOS % 3.1 % (0.0-3.0); HEMATOCRIT 26.5 % (42.0-52.0); HEMOGLOBIN 8.6 g/dl (13.5-17.5); LYMPH # 0.7 10^3/uL (1.5-5.0); LYMPH % 11.6 % (24.0-44.0); MEAN CORPUSCULAR HEMOGLOBIN 35.4 pg (27.0-33.0); MEAN CORPUSCULAR HGB CONC 32.5 g/dl (32.0-36.5); MEAN CORPUSCULAR VOLUME 109.1 fl (80.0-96.0); MONO # 0.9 10^3/uL (0.0-0.8); MONO % 16.1 % (0.0-5.0); NEUTROPHILS % 68.2 % (36.0-66.0); PLATELET COUNT, AUTOMATED 172 10^3/uL (150-450); RED BLOOD COUNT 2.43 10^6/uL (4.30-6.10); WHITE BLOOD COUNT 5.9 10^3/uL (4.0-10.0)
[2020-02-21 07:43] LABS: ALBUMIN 2.6 GM/DL (3.2-5.2); ALT/SGPT 33 U/L (12-78); BILIRUBIN,DIRECT 0.4 MG/DL (0.0-0.2); BILIRUBIN,TOTAL 0.9 MG/DL (0.2-1.0); BLOOD UREA NITROGEN 26 MG/DL (7-18); CALCIUM LEVEL 8.1 MG/DL (8.8-10.2); CARBON DIOXIDE LEVEL 26 MEQ/L (21-32); CHLORIDE LEVEL 106 MEQ/L (98-107); CREATININE FOR GFR 1.15 MG/DL (0.70-1.30); GLOMERULAR FILTRATION RATE > 60.0 (>49); GLUCOSE, FASTING 96 MG/DL (70-100); LIPASE 813 U/L (73-393); MAGNESIUM LEVEL 2.5 MG/DL (1.8-2.4); SODIUM LEVEL 138 MEQ/L (136-145); TOTAL PROTEIN 5.4 GM/DL (6.4-8.2)
[2020-02-21] MEDS: ASPIRIN 81 MG CHEW TABLET PO SCH ×2 (08:08→21:08)
[2020-02-21] MEDS: MULTIVITAMINS/MINERALS THERAP 1 TAB PO SCH (08:08)
[2020-02-21] MEDS: OXAZEPAM 10 MG CAP PO SCH ×2 (08:08→21:09)
[2020-02-21] MEDS: FOLIC ACID 1 MG TAB PO SCH (08:08)
[2020-02-21] MEDS: CEPHALEXIN 500 MG CAP PO SCH ×4 (08:08→21:09)
[2020-02-21] MEDS: ATORVASTATIN 20 MG TAB PO SCH (08:08)
[2020-02-21] MEDS: THIAMINE 100 MG TAB PO SCH (08:08)
[2020-02-21] MEDS: GABAPENTIN 100 MG CAP PO SCH ×2 (08:08→21:07)
[2020-02-21] MEDS: atenoloL 25 MG TAB PO SCH ×2 (08:08→21:08)
[2020-02-21] MEDS: MOM 30ML SUSPENSION UDC PO SCH (08:09)
[2020-02-21] MEDS: METAMUCIL (PSYLLIUM) PACKET PO SCH (08:09)
[2020-02-21] MEDS: LOSARTAN 50MG TABLET PO SCH ×2 (08:09→21:09)
[2020-02-21] MEDS: MIRALAX *UNIT DOSE* 17GM PACKET PO SCH (08:09)
[2020-02-21 20:00] VITALS: BP 138/76
[2020-02-22] MEDS: PERCOCET 5MG/325MG TAB PO PRN ×4 (02:42→20:41)
[2020-02-22 06:44] VITALS: BP 140/76
[2020-02-22 07:47] LABS: BASO % 0.5 % (0.0-1.0); EOS # 0.2 10^3/uL (0.0-0.5); EOS % 3.1 % (0.0-3.0); HEMATOCRIT 28.5 % (42.0-52.0); HEMOGLOBIN 9.1 g/dl (13.5-17.5); LYMPH # 0.8 10^3/uL (1.5-5.0); LYMPH % 13.4 % (24.0-44.0); MEAN CORPUSCULAR HEMOGLOBIN 34.5 pg (27.0-33.0); MEAN CORPUSCULAR HGB CONC 31.9 g/dl (32.0-36.5); MONO # 0.9 10^3/uL (0.0-0.8); MONO % 15.6 % (0.0-5.0); NEUTROPHILS % 66.6 % (36.0-66.0); PLATELET COUNT, AUTOMATED 224 10^3/uL (150-450); RED BLOOD COUNT 2.64 10^6/uL (4.30-6.10)
[2020-02-22 08:18] LABS: ALBUMIN 1.7 GM/DL (3.2-5.2); ALT/SGPT 32 U/L (12-78); BILIRUBIN,DIRECT 0.3 MG/DL (0.0-0.2); BLOOD UREA NITROGEN 23 MG/DL (7-18); CALCIUM LEVEL 8.3 MG/DL (8.8-10.2); CARBON DIOXIDE LEVEL 23 MEQ/L (21-32); CHLORIDE LEVEL 106 MEQ/L (98-107); CREATININE FOR GFR 1.16 MG/DL (0.70-1.30); GLOMERULAR FILTRATION RATE > 60.0 (>49); GLUCOSE, FASTING 86 MG/DL (70-100); MAGNESIUM LEVEL 2.2 MG/DL (1.8-2.4); POTASSIUM SERUM 3.8 MEQ/L (3.5-5.1); SODIUM LEVEL 138 MEQ/L (136-145); TOTAL PROTEIN 5.6 GM/DL (6.4-8.2)
[2020-02-22] MEDS: atenoloL 25 MG TAB PO SCH ×2 (08:46→20:42)
[2020-02-22] MEDS: OXAZEPAM 10 MG CAP PO SCH ×2 (08:46→20:41)
[2020-02-22] MEDS: ASPIRIN 81 MG CHEW TABLET PO SCH ×2 (08:46→20:40)
[2020-02-22] MEDS: GABAPENTIN 100 MG CAP PO SCH ×2 (08:46→20:40)
[2020-02-22] MEDS: MULTIVITAMINS/MINERALS THERAP 1 TAB PO SCH (08:46)
[2020-02-22] MEDS: MIRALAX *UNIT DOSE* 17GM PACKET PO SCH (08:47)
[2020-02-22] MEDS: METAMUCIL (PSYLLIUM) PACKET PO SCH (08:47)
[2020-02-22] MEDS: THIAMINE 100 MG TAB PO SCH (08:47)
[2020-02-22] MEDS: FOLIC ACID 1 MG TAB PO SCH (08:47)
[2020-02-22] MEDS: LOSARTAN 50MG TABLET PO SCH ×2 (08:47→20:42)
[2020-02-22] MEDS: MOM 30ML SUSPENSION UDC PO SCH (08:47)
[2020-02-22] MEDS: ATORVASTATIN 20 MG TAB PO SCH (08:47)
[2020-02-22] MEDS: CEPHALEXIN 500 MG CAP PO SCH ×4 (08:47→20:40)
[2020-02-23] MEDS: PERCOCET 5MG/325MG TAB PO PRN ×5 (02:31→23:30)
[2020-02-23 06:00] VITALS: BP 158/77
[2020-02-23] MEDS: MULTIVITAMINS/MINERALS THERAP 1 TAB PO SCH (08:24)
[2020-02-23] MEDS: atenoloL 25 MG TAB PO SCH ×2 (08:24→20:20)
[2020-02-23] MEDS: FOLIC ACID 1 MG TAB PO SCH (08:24)
[2020-02-23] MEDS: GABAPENTIN 100 MG CAP PO SCH ×2 (08:25→20:20)
[2020-02-23] MEDS: LOSARTAN 50MG TABLET PO SCH ×2 (08:25→20:20)
[2020-02-23] MEDS: ASPIRIN 81 MG CHEW TABLET PO SCH ×2 (08:25→20:19)
[2020-02-23] MEDS: OXAZEPAM 10 MG CAP PO SCH ×2 (08:25→20:20)
[2020-02-23] MEDS: CEPHALEXIN 500 MG CAP PO SCH ×4 (08:25→20:20)
[2020-02-23] MEDS: THIAMINE 100 MG TAB PO SCH (08:25)
[2020-02-23] MEDS: ATORVASTATIN 20 MG TAB PO SCH (08:25)
[2020-02-23] MEDS: METAMUCIL (PSYLLIUM) PACKET PO SCH (08:26)
[2020-02-23] MEDS: MOM 30ML SUSPENSION UDC PO SCH (08:26)
[2020-02-23] MEDS: MIRALAX *UNIT DOSE* 17GM PACKET PO SCH (08:27)
[2020-02-23 09:24] VITALS: BP 122/77
[2020-02-24] MEDS: PERCOCET 5MG/325MG TAB PO PRN ×2 (05:51→11:48)
[2020-02-24 06:00] VITALS: BP 148/89
[2020-02-24] MEDS: MIRALAX *UNIT DOSE* 17GM PACKET PO SCH (09:00)
[2020-02-24] MEDS: MOM 30ML SUSPENSION UDC PO SCH (09:00)
[2020-02-24] MEDS: METAMUCIL (PSYLLIUM) PACKET PO SCH (09:00)
[2020-02-24 09:18] VITALS: BP 150/92
[2020-02-24] MEDS: ASPIRIN 81 MG CHEW TABLET PO SCH (09:18)
[2020-02-24] MEDS: MULTIVITAMINS/MINERALS THERAP 1 TAB PO SCH (09:18)
[2020-02-24] MEDS: atenoloL 25 MG TAB PO SCH (09:18)
[2020-02-24] MEDS: THIAMINE 100 MG TAB PO SCH (09:19)
[2020-02-24] MEDS: GABAPENTIN 100 MG CAP PO SCH (09:19)
[2020-02-24] MEDS: CEPHALEXIN 500 MG CAP PO SCH ×2 (09:19→11:47)
[2020-02-24] MEDS: LOSARTAN 50MG TABLET PO SCH (09:19)
[2020-02-24] MEDS: OXAZEPAM 10 MG CAP PO SCH (09:19)
[2020-02-24] MEDS: FOLIC ACID 1 MG TAB PO SCH (09:19)
[2020-02-24] MEDS: ATORVASTATIN 20 MG TAB PO SCH (09:19)
[2020-02-24] MEDS ORDERED: META1POW PO (10:04)
[2020-02-24] MEDS ORDERED: VITMTA PO (10:04)
[2020-02-24] MEDS ORDERED: OXAZ10CA3 PO (10:04)
[2020-02-24] MEDS ORDERED: MAGN64TASA PO (10:04)
[2020-02-24] MEDS ORDERED: CEPH500C PO (10:04)
[2020-02-24] MEDS ORDERED: PERCOCET PO (10:04)
[2020-02-24] MEDS ORDERED: FOLI1TAB11 PO (10:04)
[2020-02-24] MEDS ORDERED: THIA100TA PO (10:04)
--- NOTE | 2020-02-25 15:58 | CR ---
CONSULTATION REFERRING PHYSICIAN: Dr. Kaci Lopez REASON FOR CONSULTATION: Difficulty walking. HISTORY OF PRESENT ILLNESS: Tobias Carrizales is a 69-year-old man with a history of prostate cancer, hypertension, alcohol abuse, neuropathy who was admitted to [facility] due to right leg fracture. The patient states that he developed symptoms of peripheral neuropathy in the form of numbness, tingling of feet more than hands in early 2018. His symptoms worsened in the summer of 2019 and he started having trouble walking. He denies any neck or back pain. He has occasional headaches. He has tremor only if it is cold outside and he feels chills. He does not have tremor of arms when he is in a normal climate or summer season. He denies any dysphasia, dysarthria, diplopia, urinary incontinence, constipation, hallucinations, shuffling gait. The patient states that he has been drinking excessive alcohol for multiple years. He has been drinking 1/3 liter of liquor a day for 15 years. He used to drink less prior to that. He states that he fell this time and likely had too much alcohol. He woke up in the morning and had right leg pain which was 7/10 in intensity. He was found to have right leg fracture for which he needed emergent surgery over the past weekend. He has started working with physical therapy. He is currently not allowed to walk without a walker and minimum weightbearing on right leg. He denies any weakness of his arms or left leg. He has pain in his right leg due to his fracture and surgery. DIAGNOSTIC STUDIES: His MRI scan of brain in August, in our office showed moderate cerebral atrophy and MRI of lumbosacral spine showed severe lumbosacral spinal stenosis at L3-4, moderate spinal stenosis at L2-3. MRI, cervical spine showed moderate spinal stenosis. EMG nerve conduction study revealed moderate sensory greater than motor peripheral neuropathy and L4-5 lumbosacral radiculopathy. His blood alcohol level during this admission was 0.325. Hepatitis panel was negative. AST was 134 and ALT was 102 with amylase 309 and lipase 2961. TSH 1.5 with normal metabolic profile. Hemoglobin was 8.8 and platelet count 83 with MCV 113. PAST MEDICAL HISTORY: Hypertension, prostate cancer, status post prostatectomy, peripheral neuropathy, surgery for deviated nasal septum, tonsillectomy, plastic surgery of ear in childhood. REVIEW OF SYSTEMS: All systems were reviewed and found to be noncontributory except as mentioned in history of present illness. SOCIAL HISTORY: He drinks 1/3 liter of liquor a day for 15 years. He quit smoking 30 years ago. He smoked one pack per day for 20 years. He denies illicit drugs. FAMILY HISTORY: Significant for coronary artery disease and younger brother had DVT. ALLERGIES: PENICILLIN. HOME MEDICATIONS: 1. Aspirin 325 mg p.o. daily. 2. Atenolol 25 mg. p.o. b.i.d. 3. Lipitor 20 mg p.o. daily. 4. Gabapentin 100 mg p.o. t.i.d. 5. Losartan 50 mg p.o. b.i.d. PHYSICAL EXAMINATION: VITAL SIGNS: Temperature 97.8, pulse of 88, respiratory rate 20, blood pressure 120/65, 94% saturation on room air. HEART: Regular rate and rhythm. LUNGS: Clear to auscultation. ABDOMEN: Soft, nontender, nondistended. EXTREMITIES: No pedal edema. MUSCULOSKELETAL: No abnormalities. SKIN: No rash. NEUROLOGICAL: No signs of meningeal irritation. The patient is awake, alert, oriented to place, person and time. Normal speech, comprehension and repetition. Extraocular muscles are intact. No facial weakness. Tongue and uvula are midline. 5/5 strength in all four extremities. Normal sensation throughout. Gait was not tested. Deep tendon reflexes are 1+ in arms and knee and absent at ankles. No nystagmus. No dysmetria. No tremor, cogwheel rigidity. Visual almaraz are full to confrontation. No signs of meningeal irritation. ASSESSMENT: 1. Alcohol-induced peripheral neuropathy and cerebral atrophy. 2. Multifactorial gait difficulty due to peripheral neuropathy and severe lumbosacral spinal stenosis. 3. Alcoholism. 4. No signs of Parkinsonism at this time. PLAN: 1. Check vitamin B12, vitamin B1, folic acid, etc. Check serum copper. 2. He was counseled about alcoholism and its effects. The patient expresses understanding and expresses desire to quit drinking alcohol especially after he had a fracture from a fall related to alcoholism. His blood alcohol level was 0.325 at admission. 3. There are no signs of Parkinsonism. 4. Physical and occupational therapy and use walker. 5. Follow with our office in two weeks after hospital discharge.
== END 2020-02-24 14:45 | disposition home health service (06) | DRG 492 ==
LOC: M ED 11:20 → EDBD 11:20 → M ED INP 14:02 → ENRESERV 14:22 → M MS5PR 20:50
PROVIDERS: ADMIT Internal Medicine; ATTEND Internal Medicine Nephrology
PROC: 0QSG06Z Reposition Right Tibia with Intramedullary Internal Fixation Device, Open Approach (ICD-10-PCS; principal; 2020-02-15 14:27)
DX: S82.301B Unspecified fracture of lower end of right tibia, initial encounter for open fracture type I or II (principal); K85.20 Alcohol induced acute pancreatitis without necrosis or infection; S82.431A Displaced oblique fracture of shaft of right fibula, initial encounter for closed fracture; I12.9 Hypertensive chronic kidney disease with stage 1 through stage 4 chronic kidney disease, or unspecified chronic kidney disease; F10.129 Alcohol abuse with intoxication, unspecified; N18.30 Chronic kidney disease, stage 3 unspecified; D53.9 Nutritional anemia, unspecified; D69.6 Thrombocytopenia, unspecified; Z85.46 Personal history of malignant neoplasm of prostate; W18.30XA Fall on same level, unspecified, initial encounter; Y92.009 Unspecified place in unspecified non-institutional (private) residence as the place of occurrence of the external cause; G62.9 Polyneuropathy, unspecified; Z79.82 Long term (current) use of aspirin; Z79.899 Other long term (current) drug therapy; Z88.0 Allergy status to penicillin

== ENCOUNTER → 2020-03-03 | Outpatient (CLI) | payer MEDICARE ==
[~2020-03-03] MED LIST changes: +ATEN25TA PO; +CEPH500C PO; +ECOT81TA5 PO; +FOLI1TAB11 PO; +GABA-1171 PO; +MAGN64TASA PO; +META1POW PO; +OXAZ10CA3 PO; +PERCOCET PO; +THIA100TA PO; +VITMTA PO
--- NOTE | 2020-03-03 11:31 | PFTRPT ---
Height: 74.00 Inches Weight: 195.00 Lbs BSA: 2.15 Diagnosis: R06.02 DATE: 03/03/2020 ORDERING PHYSICIAN: Sandrine Pérez, Pre and post bronchodilator studies have excellent technical quality. Forced vital capacity is borderline. FEV1 is in proportion, obstructive index is, therefore, normal. Expiratory limit of the flow-volume loop is reasonably normal. Total lung capacity is normal. Residual volume is in proportion. Diffusing capacity is significantly reduced and barely corrects for alveolar volume. No hemoglobin available for correction. Airway resistance and conductance are normal. IMPRESSION: Diffusing capacity impairment requires clinical correlation. Otherwise, unremarkable study. MTDD
== END ==
LOC: M CARPUL 10:57
PROVIDERS: ATTEND Family Medicine
DX: R06.02 Shortness of breath (principal)

== ENCOUNTER → 2020-03-09 | Outpatient (REF) | payer MEDICARE ==
[2020-03-09 16:24] LABS: HEMATOCRIT 31.6 % (42.0-52.0); MEAN CORPUSCULAR HEMOGLOBIN 33.9 pg (27.0-33.0); MEAN CORPUSCULAR HGB CONC 31.6 g/dl (32.0-36.5); MEAN CORPUSCULAR VOLUME 107.1 fl (80.0-96.0); PLATELET COUNT, AUTOMATED 324 10^3/uL (150-450); RED BLOOD COUNT 2.95 10^6/uL (4.30-6.10); WHITE BLOOD COUNT 7.2 10^3/uL (4.0-10.0)
== END ==
LOC: M SFHCCLAY 11:49
PROVIDERS: ATTEND Family Medicine
DX: D64.9 Anemia, unspecified (principal)

== ENCOUNTER → 2020-04-08 | Outpatient (REF) | payer MEDICARE ==
[2020-04-08 17:20] LABS: HEMATOCRIT 32.4 % (42.0-52.0); HEMOGLOBIN 10.2 g/dl (13.5-17.5); MEAN CORPUSCULAR HEMOGLOBIN 32.5 pg (27.0-33.0); MEAN CORPUSCULAR HGB CONC 31.5 g/dl (32.0-36.5); MEAN CORPUSCULAR VOLUME 103.2 fl (80.0-96.0); PLATELET COUNT, AUTOMATED 269 10^3/uL (150-450); RED BLOOD COUNT 3.14 10^6/uL (4.30-6.10); WHITE BLOOD COUNT 6.8 10^3/uL (4.0-10.0)
== END ==
LOC: M SFHCCLAY 12:03
PROVIDERS: ATTEND Family Medicine
DX: D64.9 Anemia, unspecified (principal)

== ENCOUNTER → 2020-04-15 | Outpatient (REF) | payer MEDICARE ==
[2020-04-15 16:36] LABS: ALBUMIN 3.8 GM/DL (3.2-5.2); ALT/SGPT 22 U/L (12-78); BILIRUBIN,DIRECT 0.2 MG/DL (0.0-0.2); BILIRUBIN,TOTAL 0.7 MG/DL (0.2-1.0); FREE T4 1.08 NG/DL (0.76-1.46); THYROID STIMULATING HORMONE 0.648 uIU/ML (0.358-3.740); TOTAL PROTEIN 6.9 GM/DL (6.4-8.2)
[2020-04-15 16:37] LABS: FOLATE > 24.0 NG/ML; VITAMIN B12 LEVEL 652 PG/ML
== END ==
LOC: M SFHCCLAY 13:29
PROVIDERS: ATTEND Family Medicine
DX: D53.9 Nutritional anemia, unspecified (principal); Z79.899 Other long term (current) drug therapy

== ENCOUNTER → 2020-04-20 | Outpatient (REF) | payer MEDICARE ==
[2020-04-21 13:48] LABS: STABLE ALKPHOS 30 U/L
[2020-04-21 13:49] LABS: % LABILE ALKALINE PHOSPHATASE 80 %; LABILE ALKPHOS 120 U/L
== END ==
LOC: M SFHCCLAY 15:39
PROVIDERS: ATTEND Family Medicine
DX: R74.8 Abnormal levels of other serum enzymes (principal)

== ENCOUNTER → 2020-04-20 | Outpatient (CLI) | payer MEDICARE ==
[~2020-04-20] MED LIST changes: +METHACHOLINE KIT (J7674) INH ONE
--- NOTE | 2020-04-20 14:40 | PFTRPT ---
Height: 74.00 Inches Weight: 195.00 Lbs BSA: 2.15 Diagnosis: R06.02 DATE: 04/20/2020 ORDERED BY: Scott Baez M.D. QUALITY: Study of excellent technical quality. PROCEDURE: Under protocol, methacholine was administered. Even after a maximal dose of 25 mg or 188.875 CDUs, no provocation dose ever achieved. IMPRESSION: Negative methacholine challenge study. MTDD
== END ==
LOC: M CARPUL 13:38
PROVIDERS: ATTEND Internal Medicine Pulmonary Disease
DX: R06.02 Shortness of breath (principal)
CPT/HCPCS: 94070; 95070; J7674

== ENCOUNTER → 2020-06-22 | Outpatient (CLI) | payer MEDICARE ==
[~2020-06-22] MED LIST changes: +GABA-282 PO; -METHACHOLINE KIT (J7674) INH ONE; +MULT1TAB8 PO; +NEUR100C PO
[2020-06-22 14:49] LABS: BASO # 0.1 10^3/uL (0.0-0.2); BASO % 1.2 % (0.0-1.0); EOS # 0.2 10^3/uL (0.0-0.5); EOS % 4.7 % (0.0-3.0); HEMATOCRIT 40.8 % (42.0-52.0); HEMOGLOBIN 13.4 g/dl (13.5-17.5); LYMPH # 1.7 10^3/uL (1.5-5.0); LYMPH % 38.6 % (24.0-44.0); MEAN CORPUSCULAR HEMOGLOBIN 33.4 pg (27.0-33.0); MEAN CORPUSCULAR HGB CONC 32.8 g/dl (32.0-36.5); MEAN CORPUSCULAR VOLUME 101.7 fl (80.0-96.0); MONO # 0.5 10^3/uL (0.0-0.8); MONO % 10.8 % (2.0-8.0); NEUTROPHILS # 1.9 10^3/uL (1.5-8.5); NEUTROPHILS % 44.5 % (36.0-66.0); PLATELET COUNT, AUTOMATED 182 10^3/uL (150-450); RED BLOOD COUNT 4.01 10^6/uL (4.30-6.10); WHITE BLOOD COUNT 4.3 10^3/uL (4.0-10.0)
[2020-06-22 15:21] LABS: ALBUMIN 4.1 GM/DL (3.2-5.2); ALT/SGPT 29 U/L (12-78); BILIRUBIN,TOTAL 0.4 MG/DL (0.2-1.0); BLOOD UREA NITROGEN 29 MG/DL (7-18); CALCIUM LEVEL 9.3 MG/DL (8.8-10.2); CARBON DIOXIDE LEVEL 29 MEQ/L (21-32); CHLORIDE LEVEL 111 MEQ/L (98-107); CREATININE FOR GFR 1.12 MG/DL (0.70-1.30); FERRITIN 162 NG/ML (26-388); FREE T4 0.81 NG/DL (0.76-1.46); GLOMERULAR FILTRATION RATE > 60.0 (>49); GLUCOSE, FASTING 97 MG/DL (70-100); IRON (FE) 119 UG/DL (65-175); LDH LACTATE DEHYDROGENASE 157 U/L (87-241); PERCENT SATURATION 29.9 % (19.7-50.0); POTASSIUM SERUM 4.4 MEQ/L (3.5-5.1); PROSTATIC SPECIFIC AG MONITOR < 0.01 NG/ML (< 4.00); SODIUM LEVEL 145 MEQ/L (136-145); THYROID STIMULATING HORMONE 0.376 uIU/ML (0.358-3.740); TOTAL IRON BINDING CAPACITY 398 UG/DL (250-450); TOTAL PROTEIN 7.1 GM/DL (6.4-8.2)
[2020-06-22 15:24] LABS: FOLATE > 24.0 NG/ML (>5.4); VITAMIN B12 LEVEL 427 PG/ML (247-911)
[2020-06-25 11:51] LABS: ALBUMIN % 64.2 % (55.8-66.1)
[2020-06-25 11:52] LABS: ALBUMIN 4.56 GM/DL (3.29-5.55); ALPHA-1-GLOBULINS 0.28 GM/DL (0.17-0.41); ALPHA-2-GLOBULINS % 8.5 % (7.1-11.8); BETA-1-GLOBULINS 0.46 GM/DL (0.28-0.60); BETA-1-GLOBULINS % 6.5 % (4.7-7.2); BETA-2-GLOBULINS 0.35 GM/DL (0.19-0.55); BETA-2-GLOBULINS % 4.9 % (3.2-6.5); GAMMA GLOBULIN % 11.9 % (11.1-18.8); GAMMA GLOBULINS 0.84 GM/DL (0.65-1.58)
== END ==
LOC: M LAB 14:12
PROVIDERS: ATTEND Internal Medicine Hematology & Oncology
DX: D53.9 Nutritional anemia, unspecified (principal)

== ENCOUNTER → 2020-10-04 | Outpatient (REF) | payer MEDICARE ==
[2020-10-04 16:37] LABS: BLOOD UREA NITROGEN 24 MG/DL (7-18); CALCIUM LEVEL 9.2 MG/DL (8.8-10.2); CARBON DIOXIDE LEVEL 25 MEQ/L (21-32); CHLORIDE LEVEL 110 MEQ/L (98-107); CHOLESTEROL LEVEL 170 MG/DL (<200); CHOLESTEROL RISK RATIO 3.777 (<5); CREATININE FOR GFR 1.04 MG/DL (0.70-1.30); GLOMERULAR FILTRATION RATE > 60.0 (>49); GLUCOSE, FASTING 94 MG/DL (70-100); HDL CHOLESTEROL 45 MG/DL (>40); LDL CHOLESTEROL 92 MG/DL (<100); NON-HDL-C 125 MG/DL; POTASSIUM SERUM 4.1 MEQ/L (3.5-5.1); SODIUM LEVEL 144 MEQ/L (136-145); TRIGLYCERIDES LEVEL 166 MG/DL (<150)
== END ==
LOC: M SFHCCLAY 10:11
PROVIDERS: ATTEND Family Medicine
DX: Z00.00 Encounter for general adult medical examination without abnormal findings (principal); E78.5 Hyperlipidemia, unspecified; I11.9 Hypertensive heart disease without heart failure

== ENCOUNTER → 2021-01-27 | Outpatient (REF) | payer MEDICARE ==
[2021-01-28 11:31] LABS: BASO % 1.1 % (0.0-1.0); EOS % 0.3 % (0.0-3.0); HEMATOCRIT 38.7 % (42.0-52.0); HEMOGLOBIN 12.5 g/dl (13.5-17.5); LYMPH # 0.7 10^3/uL (1.5-5.0); LYMPH % 17.4 % (24.0-44.0); MEAN CORPUSCULAR HEMOGLOBIN 35.1 pg (27.0-33.0); MEAN CORPUSCULAR HGB CONC 32.3 g/dl (32.0-36.5); MEAN CORPUSCULAR VOLUME 108.7 fl (80.0-96.0); MONO # 0.4 10^3/uL (0.0-0.8); MONO % 9.8 % (2.0-8.0); NEUTROPHILS # 2.7 10^3/uL (1.5-8.5); NEUTROPHILS % 70.9 % (36.0-66.0); RED BLOOD COUNT 3.56 10^6/uL (4.30-6.10); WHITE BLOOD COUNT 3.8 10^3/uL (4.0-10.0)
[2021-01-28 11:54] LABS: CALCIUM LEVEL 9.4 MG/DL (8.8-10.2); CREATININE FOR GFR 1.86 MG/DL (0.70-1.30); GLOMERULAR FILTRATION RATE 38.5 (>49); POTASSIUM SERUM 4.6 MEQ/L (3.5-5.1)
[2021-01-28 12:52] LABS: PLATELET COUNT, AUTOMATED 77 10^3/uL (150-450)
== END ==
LOC: M SFHCCLAY 15:33
PROVIDERS: ATTEND Family Medicine
DX: R53.83 Other fatigue (principal); I95.1 Orthostatic hypotension

== ENCOUNTER → 2021-02-02 | Outpatient (REF) | payer MEDICARE ==
[2021-02-02 16:51] LABS: BLOOD UREA NITROGEN 26 MG/DL (7-18); CALCIUM LEVEL 9.6 MG/DL (8.8-10.2); CARBON DIOXIDE LEVEL 25 MEQ/L (21-32); CHLORIDE LEVEL 108 MEQ/L (98-107); CREATININE FOR GFR 1.22 MG/DL (0.70-1.30); GLOMERULAR FILTRATION RATE > 60.0 (>49); GLUCOSE, FASTING 105 MG/DL (70-100); POTASSIUM SERUM 3.9 MEQ/L (3.5-5.1); SODIUM LEVEL 143 MEQ/L (136-145)
== END ==
LOC: M SFHCCLAY 12:01
PROVIDERS: ATTEND Family Medicine
DX: R79.89 Other specified abnormal findings of blood chemistry (principal)

== ENCOUNTER → 2021-02-23 | Outpatient (CLI) | payer MEDICARE ==
[~2021-02-23] MED LIST changes: +LIDOCAINE 1% MDV 20ML VIAL As Ordered ONE
[2021-02-23 10:17] LABS: BASO % 0.7 % (0.0-1.0); EOS # 0.2 10^3/uL (0.0-0.5); EOS % 3.2 % (0.0-3.0); HEMATOCRIT 36.6 % (42.0-52.0); HEMOGLOBIN 12.4 g/dl (13.5-17.5); LYMPH % 17.7 % (24.0-44.0); MEAN CORPUSCULAR HGB CONC 33.9 g/dl (32.0-36.5); MEAN CORPUSCULAR VOLUME 106.4 fl (80.0-96.0); MONO # 0.7 10^3/uL (0.0-0.8); MONO % 12.6 % (2.0-8.0); NEUTROPHILS # 3.7 10^3/uL (1.5-8.5); NEUTROPHILS % 65.4 % (36.0-66.0); PLATELET COUNT, AUTOMATED 136 10^3/uL (150-450); RED BLOOD COUNT 3.44 10^6/uL (4.30-6.10); WHITE BLOOD COUNT 5.6 10^3/uL (4.0-10.0)
[2021-02-23 10:28] LABS: INR 1.01; PROTHROMBIN TIME 13.7 SECONDS (12.7-14.5)
[2021-02-23 10:29] LABS: PARTIAL THROMBOPLASTIN TIME 31.9 SECONDS (25.9-37.0)
[2021-02-23 11:15] VITALS: BP 158/66
--- NOTE | 2021-02-23 16:30 | REP ---
INDICATION: ANEMIA BONE MARROW BIOPSY. COMPARISON: None. TECHNIQUE: The procedure was procedure performed under the direct supervision of Dr. Martines. The risks and benefits of the procedure were explained to the patient and informed consent was obtained. The right iliac bone was localized using CT guidance. The skin was prepped and draped in a sterile fashion. Four mL of 1% lidocaine was used as local anesthetic. Using CT guidance an 11 gauge bone marrow biopsy system was inserted. 10 mL of marrow fluid was withdrawn. One core biopsy sample was then obtained. Estimated blood loss: Less than 1 mL The patient tolerated the procedure well and there were no immediate complications. After the appropriate amount to monitored convalescence the patient was discharged from the department. FINDINGS: None IMPRESSION: CT-guided right iliac bone marrow biopsy. <Electronically signed by Rene Oneil > 02/23/21 1602 <Electronically signed by Dion Martines > 02/23/21 1824
== END ==
LOC: M IRPRO 09:02
PROVIDERS: ATTEND Internal Medicine Hematology & Oncology
DX: D69.6 Thrombocytopenia, unspecified (principal); D64.9 Anemia, unspecified

== ENCOUNTER → 2021-04-25 | Outpatient (REF) | payer MEDICARE ==
[~2021-04-25] MED LIST changes: -LIDOCAINE 1% MDV 20ML VIAL As Ordered ONE; +LOSA50TA28 PO; -LOSA50TA88 PO
== END ==
LOC: M SFHCCLAY 13:56
PROVIDERS: ATTEND Family Medicine
DX: I11.9 Hypertensive heart disease without heart failure (principal)

== ENCOUNTER → 2021-05-16 | Outpatient (REF) | payer MEDICARE ==
[2021-05-17 12:05] LABS: BASO % 0.9 % (0.0-1.0); EOS # 0.3 10^3/uL (0.0-0.5); EOS % 5.5 % (0.0-3.0); HEMATOCRIT 40.6 % (42.0-52.0); HEMOGLOBIN 13.3 g/dl (13.5-17.5); LYMPH # 1.5 10^3/uL (1.5-5.0); LYMPH % 32.7 % (24.0-44.0); MEAN CORPUSCULAR HEMOGLOBIN 36.4 pg (27.0-33.0); MEAN CORPUSCULAR HGB CONC 32.8 g/dl (32.0-36.5); MEAN CORPUSCULAR VOLUME 111.2 fl (80.0-96.0); MONO # 0.5 10^3/uL (0.0-0.8); MONO % 10.6 % (2.0-8.0); NEUTROPHILS # 2.3 10^3/uL (1.5-8.5); NEUTROPHILS % 50.1 % (36.0-66.0); PLATELET COUNT, AUTOMATED 180 10^3/uL (150-450); RED BLOOD COUNT 3.65 10^6/uL (4.30-6.10); WHITE BLOOD COUNT 4.5 10^3/uL (4.0-10.0)
[2021-05-17 12:35] LABS: BLOOD UREA NITROGEN 26 MG/DL (7-18); CALCIUM LEVEL 8.8 MG/DL (8.8-10.2); CARBON DIOXIDE LEVEL 25 MEQ/L (21-32); CHLORIDE LEVEL 107 MEQ/L (98-107); CREATININE FOR GFR 1.14 MG/DL (0.70-1.30); FERRITIN 247 NG/ML (26-388); GLOMERULAR FILTRATION RATE > 60.0 (>49); GLUCOSE, FASTING 131 MG/DL (70-100); IRON (FE) 116 UG/DL (65-175); LDH LACTATE DEHYDROGENASE 162 U/L (87-241); PERCENT SATURATION 28.9 % (19.7-50.0); POTASSIUM SERUM 4.7 MEQ/L (3.5-5.1); SODIUM LEVEL 141 MEQ/L (136-145); TOTAL IRON BINDING CAPACITY 402 UG/DL (250-450)
[2021-05-17 12:41] LABS: VITAMIN B12 LEVEL 324 PG/ML
[2021-05-17 12:42] LABS: FOLATE 5.7 NG/ML
== END ==
LOC: M LABDRAWC 11:08
PROVIDERS: ATTEND Internal Medicine Hematology & Oncology
DX: D64.9 Anemia, unspecified (principal); D69.6 Thrombocytopenia, unspecified

== ENCOUNTER → 2021-09-22 | Outpatient (RCR) | payer BC, MEDICARE | LOC: M PT 09-02 13:24 | PROVIDERS: ATTEND Family Medicine | DX: R26.89 Other abnormalities of gait and mobility (principal); R25.1 Tremor, unspecified ==

== ENCOUNTER 2021-10-06 14:27 | Outpatient (RCR) | payer MEDICARE | END 2021-10-23 | LOC: M PT 14:27 | PROVIDERS: ATTEND Family Medicine | DX: R26.89 Other abnormalities of gait and mobility (principal); R25.1 Tremor, unspecified ==

== ENCOUNTER → 2022-01-30 | Outpatient (REF) | payer MEDICARE ==
[2022-01-30 19:01] LABS: CALCIUM LEVEL 8.6 MG/DL (8.8-10.2); CHOLESTEROL RISK RATIO 2.98 (<5); CREATININE FOR GFR 1.4 MG/DL (0.70-1.30); GLOMERULAR FILTRATION RATE 53.3 (>42); POTASSIUM SERUM 3.5 MEQ/L (3.5-5.1)
== END ==
LOC: M SFHCCLAY 09:43
PROVIDERS: ATTEND Nurse Practitioner Family
DX: E78.5 Hyperlipidemia, unspecified (principal); I11.9 Hypertensive heart disease without heart failure

== ENCOUNTER → 2022-02-21 | Outpatient (REF) | payer MEDICARE ==
[2022-02-21 18:52] LABS: BASO % 1.5 % (0.0-1.0); EOS # 0.1 10^3/uL (0.0-0.5); EOS % 4.9 % (0.0-3.0); HEMATOCRIT 33.7 % (42.0-52.0); LYMPH # 0.8 10^3/uL (1.5-5.0); LYMPH % 31.9 % (24.0-44.0); MEAN CORPUSCULAR HEMOGLOBIN 38.6 pg (27.0-33.0); MEAN CORPUSCULAR HGB CONC 32.6 g/dl (32.0-36.5); MONO # 0.5 10^3/uL (0.0-0.8); MONO % 17.5 % (2.0-8.0); NEUTROPHILS # 1.1 10^3/uL (1.5-8.5); NEUTROPHILS % 43.4 % (36.0-66.0); RED BLOOD COUNT 2.85 10^6/uL (4.30-6.10); WHITE BLOOD COUNT 2.6 10^3/uL (4.0-10.0)
[2022-02-21 19:01] LABS: CHLORIDE LEVEL 106 MMOL/L (98-107); POTASSIUM SERUM 5.1 MMOL/L (3.5-5.1); SODIUM LEVEL 144 MMOL/L (136-145)
[2022-02-21 19:02] LABS: ALBUMIN 3.6 G/DL (3.2-5.2); CARBON DIOXIDE LEVEL 25 MMOL/L (20-31)
[2022-02-21 19:07] LABS: BLOOD UREA NITROGEN 27 MG/DL (9-23); GLUCOSE, FASTING 112 MG/DL (74-106); TOTAL PROTEIN 6.6 G/DL (5.7-8.2)
[2022-02-21 19:08] LABS: ALKALINE PHOSPHATASE 98 U/L (46-116); BILIRUBIN,TOTAL 0.7 MG/DL (0.3-1.2); CALCIUM LEVEL 8.9 MG/DL (8.3-10.6); FERRITIN 1047.1 NG/ML (10.5-307.3)
[2022-02-21 19:09] LABS: ALT/SGPT 99 U/L (7.0-40); AST/SGOT 151 U/L (<34)
[2022-02-21 19:10] LABS: GLOMERULAR FILTRATION RATE > 60.0 (>42); IRON (FE) 157 UG/DL (65-175); PERCENT SATURATION 47.1 % (19.7-50.0); RHEUMATOID FACTOR QUANT < 3.5 IU/ML (<14); TOTAL IRON BINDING CAPACITY 333 UG/DL (250-425)
[2022-02-21 20:01] LABS: ERYTHROCYTE SEDIMENTATION RATE 58 mm/hr (0-20)
[2022-02-21 20:14] LABS: MEAN CORPUSCULAR VOLUME 118.2 fl (80.0-96.0)
[2022-02-21 20:15] LABS: PLATELET COUNT, AUTOMATED 79 10^3/uL (150-450)
[2022-02-21 20:19] LABS: PLATELET ESTIMATE DECREASED (NORMAL)
== END ==
LOC: M SFHCCLAY 14:19
PROVIDERS: ATTEND Nurse Practitioner Family
DX: R26.81 Unsteadiness on feet (principal); N39.498 Other specified urinary incontinence; R15.1 Fecal smearing; M54.50 Low back pain, unspecified; D64.9 Anemia, unspecified

== ENCOUNTER → 2022-03-22 | Outpatient (CLI) | payer MEDICARE ==
[~2022-03-22] MED LIST changes: +CLIN-250; +ISOVUE-370 76% 100ML VIAL As Ordered ONE; +PRED10TA2; +TRAM50TA2
== END ==
LOC: M RAD 17:15
PROVIDERS: ATTEND Nurse Practitioner Family
DX: R74.8 Abnormal levels of other serum enzymes (principal); I70.0 Atherosclerosis of aorta; S22.41XD Multiple fractures of ribs, right side, subsequent encounter for fracture with routine healing; K42.9 Umbilical hernia without obstruction or gangrene; X58.XXXA Exposure to other specified factors, initial encounter; Y92.9 Unspecified place or not applicable; Y99.9 Unspecified external cause status; Y93.9 Activity, unspecified
CPT/HCPCS: 74160; Q9967

== ENCOUNTER → 2022-05-02 | Outpatient (REF) | payer MEDICARE ==
[~2022-05-02] MED LIST changes: -ISOVUE-370 76% 100ML VIAL As Ordered ONE
[2022-05-02 17:35] LABS: ALBUMIN 3.2 G/DL (3.2-5.2); BILIRUBIN,TOTAL 0.5 MG/DL (0.3-1.2); CALCIUM LEVEL 8.7 MG/DL (8.3-10.6); CREATININE FOR GFR 1.67 MG/DL (0.70-1.30); GLOMERULAR FILTRATION RATE 43.5 (>42); POTASSIUM SERUM 4.5 MMOL/L (3.5-5.1); TOTAL PROTEIN 6.2 G/DL (5.7-8.2)
== END ==
LOC: M SFHCCLAY 14:43
PROVIDERS: ATTEND Nurse Practitioner Family
DX: R22.43 Localized swelling, mass and lump, lower limb, bilateral (principal)

== ENCOUNTER → 2022-05-24 | Outpatient (REF) | payer MEDICARE ==
[2022-05-24 17:36] LABS: ALBUMIN 3.7 G/DL (3.2-5.2); CALCIUM LEVEL 9.4 MG/DL (8.3-10.6); CREATININE FOR GFR 1.61 MG/DL (0.70-1.30); GLOMERULAR FILTRATION RATE 45.4 (>42); POTASSIUM SERUM 4.4 MMOL/L (3.5-5.1)
== END ==
LOC: M SFHCCLAY 11:52
PROVIDERS: ATTEND Family Medicine
DX: I11.9 Hypertensive heart disease without heart failure (principal); E88.09 Other disorders of plasma-protein metabolism, not elsewhere classified

== ENCOUNTER → 2022-06-07 | Outpatient (REF) | payer MEDICARE ==
[2022-06-07 18:15] LABS: BLOOD UREA NITROGEN 29 MG/DL (9-23); CALCIUM LEVEL 8.9 MG/DL (8.3-10.6); CARBON DIOXIDE LEVEL 28 MMOL/L (20-31); CHLORIDE LEVEL 103 MMOL/L (98-107); CREATININE FOR GFR 1.14 MG/DL (0.70-1.30); GLOMERULAR FILTRATION RATE > 60.0 (>42); GLUCOSE, FASTING 105 MG/DL (74-106); POTASSIUM SERUM 4.3 MMOL/L (3.5-5.1); SODIUM LEVEL 139 MMOL/L (136-145)
== END ==
LOC: M SFHCCLAY 14:03
PROVIDERS: ATTEND Nurse Practitioner Family
DX: I11.9 Hypertensive heart disease without heart failure (principal)

== ENCOUNTER → 2022-07-06 | Outpatient (REF) | payer MEDICARE ==
[2022-07-06 18:06] LABS: BLOOD UREA NITROGEN 23 MG/DL (9-23); CALCIUM LEVEL 8.8 MG/DL (8.3-10.6); CARBON DIOXIDE LEVEL 26 MMOL/L (20-31); CHLORIDE LEVEL 103 MMOL/L (98-107); CREATININE FOR GFR 1.12 MG/DL (0.70-1.30); GLOMERULAR FILTRATION RATE > 60.0 (>42); GLUCOSE, FASTING 142 MG/DL (74-106); POTASSIUM SERUM 4.4 MMOL/L (3.5-5.1); SODIUM LEVEL 141 MMOL/L (136-145)
== END ==
LOC: M SFHCCLAY 13:55
PROVIDERS: ATTEND Nurse Practitioner Family
DX: I11.9 Hypertensive heart disease without heart failure (principal)

== ENCOUNTER → 2022-09-19 | Outpatient (REF) | payer MEDICARE ==
[~2022-09-19] MED LIST changes: +CIPR500T39 PO; +MAGN250T6 PO; +SPIR-10 PO
[2022-09-19 19:04] LABS: ALBUMIN 3.1 G/DL (3.2-5.2); CALCIUM LEVEL 8.1 MG/DL (8.3-10.6); CREATININE FOR GFR 1.76 MG/DL (0.70-1.30); FOLATE 6.3 NG/ML (>5.4); FREE T4 1.52 NG/DL (0.89-1.76); POTASSIUM SERUM 3.4 MMOL/L (3.5-5.1); THYROID STIMULATING HORMONE 1.319 uIU/ML (0.55-4.78); TOTAL PROTEIN 6.3 G/DL (5.7-8.2)
[2022-09-19 19:44] LABS: HEMATOCRIT 29.8 % (42.0-52.0); HEMOGLOBIN 10.1 g/dl (13.5-17.5); RED BLOOD COUNT 2.52 10^6/uL (4.30-6.10); WHITE BLOOD COUNT 6.6 10^3/uL (4.0-10.0)
[2022-09-19 19:45] LABS: LYMPH % 14.1 % (24.0-44.0); MEAN CORPUSCULAR HEMOGLOBIN 40.1 pg (27.0-33.0); MEAN CORPUSCULAR HGB CONC 33.9 g/dl (32.0-36.5); MEAN CORPUSCULAR VOLUME 118.3 fl (80.0-96.0); MONO % 11.2 % (2.0-8.0); NEUTROPHILS % 70.2 % (36.0-66.0); PLATELET COUNT, AUTOMATED 67 10^3/uL (150-450)
[2022-09-19 19:46] LABS: BASO # 0.1 10^3/uL (0.0-0.2); BASO % 0.9 % (0.0-1.0); EOS # 0.2 10^3/uL (0.0-0.5); EOS % 2.4 % (0.0-3.0); LYMPH # 0.9 10^3/uL (1.5-5.0); MONO # 0.7 10^3/uL (0.0-0.8); NEUTROPHILS # 4.6 10^3/uL (1.5-8.5)
[2022-09-19 19:47] LABS: PLATELET ESTIMATE DECREASED (NORMAL)
[2022-09-19 19:55] LABS: HEMOGLOBIN A1c 5.1 % (4.0-6.0)
[2022-09-27 03:06] LABS: IMMUNOTYPING SERUM IGA SO 591 mg/dL (61-437); IMMUNOTYPING SERUM IGM SO 133 mg/dL (20-172); VITAMIN E(ALPHA TOCOPHEROL) 6.4 mg/L (9.0-29.0); VITAMIN E(GAMMA TOCOPHEROL) 0.8 mg/L (0.5-4.9)
== END ==
LOC: M LABDRAWC 17:53
PROVIDERS: ATTEND Psychiatry & Neurology Neurology
DX: E07.9 Disorder of thyroid, unspecified (principal); E53.8 Deficiency of other specified B group vitamins; E11.9 Type 2 diabetes mellitus without complications; I11.9 Hypertensive heart disease without heart failure; E78.5 Hyperlipidemia, unspecified; E88.09 Other disorders of plasma-protein metabolism, not elsewhere classified; D53.9 Nutritional anemia, unspecified

== ENCOUNTER → 2022-09-19 | Outpatient (REF) | payer MEDICARE ==
[~2022-09-19] MED LIST changes: -CIPR500T39 PO; -MAGN250T6 PO; -SPIR-10 PO
[2022-09-19 17:42] LABS: BASO # 0.1 10^3/uL (0.0-0.2); BASO % 0.9 % (0.0-1.0); EOS # 0.2 10^3/uL (0.0-0.5); EOS % 2.4 % (0.0-3.0); HEMATOCRIT 29.8 % (42.0-52.0); HEMOGLOBIN 10.1 g/dl (13.5-17.5); LYMPH # 0.9 10^3/uL (1.5-5.0); LYMPH % 14.1 % (24.0-44.0); MEAN CORPUSCULAR HEMOGLOBIN 40.1 pg (27.0-33.0); MEAN CORPUSCULAR HGB CONC 33.9 g/dl (32.0-36.5); MONO # 0.7 10^3/uL (0.0-0.8); MONO % 11.2 % (2.0-8.0); NEUTROPHILS # 4.6 10^3/uL (1.5-8.5); NEUTROPHILS % 70.2 % (36.0-66.0); RED BLOOD COUNT 2.52 10^6/uL (4.30-6.10); WHITE BLOOD COUNT 6.6 10^3/uL (4.0-10.0)
[2022-09-19 17:58] LABS: MEAN CORPUSCULAR VOLUME 118.3 fl (80.0-96.0); PLATELET COUNT, AUTOMATED 67 10^3/uL (150-450)
[2022-09-19 18:09] LABS: ALBUMIN 3.1 G/DL (3.2-5.2); BILIRUBIN,TOTAL 2.1 MG/DL (0.3-1.2); CALCIUM LEVEL 8.1 MG/DL (8.3-10.6); CHOLESTEROL RISK RATIO 5.39 (<5); CREATININE FOR GFR 1.75 MG/DL (0.70-1.30); GLOMERULAR FILTRATION RATE 41.2 (>42); HDL CHOLESTEROL 26.5 MG/DL (>40); LDL CHOLESTEROL 94.7 MG/DL (<100); NON-HDL-C 116.5 MG/DL; POTASSIUM SERUM 3.3 MMOL/L (3.5-5.1); TOTAL PROTEIN 6.5 G/DL (5.7-8.2)
[2022-09-19 19:30] LABS: PLATELET ESTIMATE DECREASED (NORMAL)
== END ==
LOC: M SFHCCLAY 14:52
PROVIDERS: ATTEND Nurse Practitioner Family
DX: I11.9 Hypertensive heart disease without heart failure (principal); E78.5 Hyperlipidemia, unspecified; E88.09 Other disorders of plasma-protein metabolism, not elsewhere classified; D53.9 Nutritional anemia, unspecified

== ENCOUNTER 2022-09-28 10:18 | Inpatient (IN) | payer MEDICARE ==
[~2022-09-28] VITALS: Ht 188 cm; Wt 89.2 kg
[2022-09-28] MEDS ORDERED: CIPR500T39 PO (10:29)
[2022-09-28] MEDS ORDERED: MAGN250T6 PO (10:44)
[2022-09-28] MEDS ORDERED: SPIR-10 PO (10:44)
[2022-09-28 11:10] LABS: BASO # 0.1 10^3/uL (0.0-0.2); BASO % 1.6 % (0.0-1.0); EOS # 0.2 10^3/uL (0.0-0.5); EOS % 3.8 % (0.0-3.0); HEMATOCRIT 30.8 % (42.0-52.0); HEMOGLOBIN 10.6 g/dl (13.5-17.5); LYMPH # 1.2 10^3/uL (1.5-5.0); LYMPH % 22.5 % (24.0-44.0); MEAN CORPUSCULAR HEMOGLOBIN 40.5 pg (27.0-33.0); MEAN CORPUSCULAR HGB CONC 34.4 g/dl (32.0-36.5); MONO % 18.1 % (2.0-8.0); NEUTROPHILS # 2.9 10^3/uL (1.5-8.5); NEUTROPHILS % 53.5 % (36.0-66.0); RED BLOOD COUNT 2.62 10^6/uL (4.30-6.10); WHITE BLOOD COUNT 5.5 10^3/uL (4.0-10.0)
[2022-09-28 11:11] LABS: MEAN CORPUSCULAR VOLUME 117.6 fl (80.0-96.0)
[2022-09-28 11:12] LABS: PLATELET COUNT, AUTOMATED 76 10^3/uL (150-450)
[2022-09-28 11:36] LABS: OSMOLALITY SERUM 365 MOSM/KG (280-301)
[2022-09-28 11:40] LABS: ALBUMIN 2.8 G/DL (3.2-5.2); ALKALINE PHOSPHATASE 162 U/L (46-116); ALT/SGPT 77 U/L (7.0-40); AST/SGOT 193 U/L (<34); BILIRUBIN,DIRECT 0.8 MG/DL (<0.4); BILIRUBIN,TOTAL 1.4 MG/DL (0.3-1.2); BLOOD UREA NITROGEN 18 MG/DL (9-23); CALCIUM LEVEL 7.8 MG/DL (8.3-10.6); CARBON DIOXIDE LEVEL 23 MMOL/L (20-31); CHLORIDE LEVEL 106 MMOL/L (98-107); CREATININE FOR GFR 0.94 MG/DL (0.70-1.30); GLOMERULAR FILTRATION RATE > 60.0 (>42); GLUCOSE, FASTING 103 MG/DL (74-106); POTASSIUM SERUM 3.4 MMOL/L (3.5-5.1); SODIUM LEVEL 141 MMOL/L (136-145); TOTAL PROTEIN 6.1 G/DL (5.7-8.2)
[2022-09-28 11:43] LABS: THYROID STIMULATING HORMONE 1.657 uIU/ML (0.55-4.78)
[2022-09-28 11:47] LABS: ANISOCYTOSIS 1+; PLATELET ESTIMATE DECREASED (NORMAL)
[2022-09-28] MEDS ORDERED: NS IV ONE (11:55)
[2022-09-28] MEDS ORDERED: ISOVUE-370 76% 100ML VIAL As Ordered ONE (12:38)
[2022-09-28 14:51] LABS: ETHYL ALCOHOL (ETHANOL) 0.298 % (0.000-0.010)
[2022-09-28] MEDS ORDERED: BOOSTRIX VACCINE (TETANUS/DIPHTH/ACEL. PERTUSSIS) 0.5ML SYR IM.IMMUN ONE (14:55)
[2022-09-28] MEDS ORDERED: LORazepam 2 MG TAB PO PRN (15:30)
[2022-09-28] MEDS ORDERED: MOM 30ML SUSPENSION UDC PO PRN (15:30)
[2022-09-28] MEDS ORDERED: LR 1,000 ML IV ONE (16:00)
[2022-09-28] MEDS ORDERED: MED REC IN PROGRESS XX SCH (16:40)
[2022-09-28] MEDS ORDERED: HOME MED LIST COMPLETE! XX SCH (16:55)
[2022-09-28] MEDS: POTASSIUM CHLORIDE 10MEQ SR TABLET PO SCH ×2 (17:30→18:29)
[2022-09-28 17:46] LABS: HEPATITIS B SURFACE ANTIGEN NEGATIVE (NEGATIVE)
[2022-09-28 18:00] VITALS: BP 167/77; TEMP 98.1; O2SAT 98
[2022-09-28 18:03] LABS: HEPATITIS C VIRUS ABY INDEX 0.09 INDEX (<0.8)
[2022-09-28 18:04] LABS: HEPATITIS B CORE ANTIBODY IGM NEGATIVE (NEGATIVE)
[2022-09-28 18:21] VITALS: BP 167/77
[2022-09-28 18:30] VITALS: BP_SYST 126; BP_SYST 127; BP_SYST 167; BP_DIAS 77; BP_DIAS 82; BP_DIAS 84
[2022-09-28 21:00] VITALS: BP 163/99; TEMP 99; O2SAT 97
[2022-09-28] MEDS: GABAPENTIN 300 MG CAP PO SCH (21:00)
[2022-09-28] MEDS: THIAMINE 100 MG TAB PO SCH (21:00)
[2022-09-28] MEDS: DOCUSATE SODIUM 100MG CAPSULE PO SCH (21:00)
[2022-09-28] MEDS: atenoloL 25 MG TAB PO SCH (21:01)
[2022-09-28 22:28] VITALS: BP 154/62
[2022-09-29] VITALS (7 sets, daily range): BP systolic 121–157; BP diastolic 66–85; TEMP 97.9–98.4; O2SAT 96–98
[2022-09-29] MEDS ORDERED: GABAPENTIN 300 MG CAP PO ONE
[2022-09-29 06:04] LABS: HEMATOCRIT 33.5 % (42.0-52.0); HEMOGLOBIN 11.1 g/dl (13.5-17.5); MEAN CORPUSCULAR HEMOGLOBIN 39.2 pg (27.0-33.0); MEAN CORPUSCULAR HGB CONC 33.1 g/dl (32.0-36.5); RED BLOOD COUNT 2.83 10^6/uL (4.30-6.10); WHITE BLOOD COUNT 6.9 10^3/uL (4.0-10.0)
[2022-09-29 06:12] LABS: MEAN CORPUSCULAR VOLUME 118.4 fl (80.0-96.0); PLATELET COUNT, AUTOMATED 76 10^3/uL (150-450)
[2022-09-29 06:22] LABS: ALBUMIN 2.9 G/DL (3.2-5.2); ALKALINE PHOSPHATASE 175 U/L (46-116); ALT/SGPT 83 U/L (7.0-40); AST/SGOT 165 U/L (<34); BLOOD UREA NITROGEN 15 MG/DL (9-23); CALCIUM LEVEL 7.6 MG/DL (8.3-10.6); CARBON DIOXIDE LEVEL 25 MMOL/L (20-31); CHLORIDE LEVEL 107 MMOL/L (98-107); CREATININE FOR GFR 0.86 MG/DL (0.70-1.30); GLOMERULAR FILTRATION RATE > 60.0 (>42); GLUCOSE, FASTING 99 MG/DL (74-106); POTASSIUM SERUM 3.9 MMOL/L (3.5-5.1); SODIUM LEVEL 142 MMOL/L (136-145); TOTAL PROTEIN 6.3 G/DL (5.7-8.2)
[2022-09-29] MEDS: ENOXAPARIN 40MG/0.4ML SYRINGE (J1650 PER 10MG) SC SCH (09:00)
[2022-09-29] MEDS: ASPIRIN 81MG ENTERIC TABLET PO SCH (09:22)
[2022-09-29] MEDS: FOLIC ACID 1MG TAB PO SCH (09:22)
[2022-09-29] MEDS: MULTIVITAMINS/MINERALS THERAP 1 TAB PO SCH (09:22)
[2022-09-29] MEDS: THIAMINE 100 MG TAB PO SCH (09:22)
[2022-09-29] MEDS: ATORVASTATIN 20 MG TAB PO SCH (09:22)
[2022-09-29] MEDS: GABAPENTIN 300 MG CAP PO SCH ×3 (09:22→21:40)
[2022-09-29] MEDS: MAGNESIUM OXIDE 400MG TAB (MAG-OX) PO SCH (09:22)
[2022-09-29] MEDS: DOCUSATE SODIUM 100MG CAPSULE PO SCH ×2 (09:22→21:40)
[2022-09-29] MEDS: SPIRONOLACTONE 25 MG TAB PO SCH (09:22)
[2022-09-29] MEDS: atenoloL 25 MG TAB PO SCH ×2 (09:24→21:40)
[2022-09-29 11:56] LABS: INR 1.18; PROTHROMBIN TIME 15.3 SECONDS (12.5-14.5)
[2022-09-29 11:57] LABS: PARTIAL THROMBOPLASTIN TIME 33.5 SECONDS (24.8-34.2)
[2022-09-29] MEDS: THIAMINE 200MG 2ML VIAL IV SCH (16:56)
[2022-09-30] VITALS (7 sets, daily range): BP systolic 134–146; BP diastolic 74–87; TEMP 97.9–98.2; O2SAT 97–99
[2022-09-30] MEDS: THIAMINE 200MG 2ML VIAL IV SCH ×3 (01:10→16:27)
[2022-09-30 06:11] LABS: HEMATOCRIT 29.8 % (42.0-52.0); MEAN CORPUSCULAR HEMOGLOBIN 39.5 pg (27.0-33.0); MEAN CORPUSCULAR HGB CONC 33.6 g/dl (32.0-36.5); MEAN CORPUSCULAR VOLUME 117.8 fl (80.0-96.0); RED BLOOD COUNT 2.53 10^6/uL (4.30-6.10); WHITE BLOOD COUNT 4.4 10^3/uL (4.0-10.0)
[2022-09-30 06:12] LABS: PLATELET COUNT, AUTOMATED 57 10^3/uL (150-450)
[2022-09-30 06:35] LABS: ALBUMIN 2.4 G/DL (3.2-5.2); ALKALINE PHOSPHATASE 146 U/L (46-116); ALT/SGPT 59 U/L (7.0-40); AST/SGOT 137 U/L (<34); BILIRUBIN,DIRECT 1.2 MG/DL (<0.4); BILIRUBIN,TOTAL 2.5 MG/DL (0.3-1.2); BLOOD UREA NITROGEN 15 MG/DL (9-23); CALCIUM LEVEL 7.9 MG/DL (8.3-10.6); CARBON DIOXIDE LEVEL 28 MMOL/L (20-31); CHLORIDE LEVEL 105 MMOL/L (98-107); CREATININE FOR GFR 0.85 MG/DL (0.70-1.30); GLOMERULAR FILTRATION RATE > 60.0 (>42); GLUCOSE, FASTING 101 MG/DL (74-106); POTASSIUM SERUM 3.6 MMOL/L (3.5-5.1); SODIUM LEVEL 139 MMOL/L (136-145); TOTAL PROTEIN 5.5 G/DL (5.7-8.2)
[2022-09-30] MEDS: MULTIVITAMINS/MINERALS THERAP 1 TAB PO SCH (08:53)
[2022-09-30] MEDS: ASPIRIN 81MG ENTERIC TABLET PO SCH (08:53)
[2022-09-30] MEDS: SPIRONOLACTONE 25 MG TAB PO SCH (08:53)
[2022-09-30] MEDS: MAGNESIUM OXIDE 400MG TAB (MAG-OX) PO SCH (08:53)
[2022-09-30] MEDS: FOLIC ACID 1MG TAB PO SCH (08:53)
[2022-09-30] MEDS: ATORVASTATIN 20 MG TAB PO SCH (08:53)
[2022-09-30] MEDS: ENOXAPARIN 40MG/0.4ML SYRINGE (J1650 PER 10MG) SC SCH (08:55)
[2022-09-30] MEDS: atenoloL 25 MG TAB PO SCH ×2 (08:55→20:43)
[2022-09-30] MEDS: DOCUSATE SODIUM 100MG CAPSULE PO SCH ×2 (08:56→20:43)
[2022-09-30] MEDS: GABAPENTIN 300 MG CAP PO SCH ×3 (08:56→20:38)
[2022-09-30 11:22] LABS: INR 1.25
[2022-09-30 11:23] LABS: PARTIAL THROMBOPLASTIN TIME 38.3 SECONDS (24.8-34.2)
[2022-09-30 11:25] LABS: D-DIMER QUANT 3522.85 ng/ml (<500); PLATELET COUNT, AUTOMATED 59 10^3/uL (150-450)
[2022-10-01] MEDS: THIAMINE 200MG 2ML VIAL IV SCH ×3 (01:15→16:17)
[2022-10-01 04:00] VITALS: BP 148/65
[2022-10-01 05:52] VITALS: BP 148/65; TEMP 98.2; O2SAT 97
[2022-10-01 06:47] LABS: HEMATOCRIT 28.6 % (42.0-52.0); HEMOGLOBIN 9.8 g/dl (13.5-17.5); MEAN CORPUSCULAR HEMOGLOBIN 39.7 pg (27.0-33.0); MEAN CORPUSCULAR HGB CONC 34.3 g/dl (32.0-36.5); RED BLOOD COUNT 2.47 10^6/uL (4.30-6.10); WHITE BLOOD COUNT 4.8 10^3/uL (4.0-10.0)
[2022-10-01 06:48] LABS: MEAN CORPUSCULAR VOLUME 115.8 fl (80.0-96.0); PLATELET COUNT, AUTOMATED 52 10^3/uL (150-450)
[2022-10-01 07:08] LABS: ALBUMIN 2.3 G/DL (3.2-5.2); ALKALINE PHOSPHATASE 130 U/L (46-116); ALT/SGPT 42 U/L (7.0-40); AST/SGOT 114 U/L (<34); BLOOD UREA NITROGEN 15 MG/DL (9-23); CALCIUM LEVEL 7.3 MG/DL (8.3-10.6); CARBON DIOXIDE LEVEL 25 MMOL/L (20-31); CHLORIDE LEVEL 104 MMOL/L (98-107); CREATININE FOR GFR 0.83 MG/DL (0.70-1.30); GLOMERULAR FILTRATION RATE > 60.0 (>42); GLUCOSE, FASTING 90 MG/DL (74-106); POTASSIUM SERUM 3.5 MMOL/L (3.5-5.1); SODIUM LEVEL 137 MMOL/L (136-145); TOTAL PROTEIN 5.2 G/DL (5.7-8.2)
[2022-10-01] MEDS: MULTIVITAMINS/MINERALS THERAP 1 TAB PO SCH (08:32)
[2022-10-01] MEDS: GABAPENTIN 300 MG CAP PO SCH ×3 (08:32→20:34)
[2022-10-01] MEDS: FOLIC ACID 1MG TAB PO SCH (08:32)
[2022-10-01] MEDS: ATORVASTATIN 20 MG TAB PO SCH (08:32)
[2022-10-01] MEDS: atenoloL 25 MG TAB PO SCH ×2 (08:33→20:36)
[2022-10-01] MEDS: SPIRONOLACTONE 25 MG TAB PO SCH (08:33)
[2022-10-01] MEDS: DOCUSATE SODIUM 100MG CAPSULE PO SCH ×2 (08:33→20:34)
[2022-10-01] MEDS: MAGNESIUM OXIDE 400MG TAB (MAG-OX) PO SCH (08:33)
[2022-10-01] MEDS: ASPIRIN 81MG ENTERIC TABLET PO SCH (08:33)
[2022-10-01 14:00] VITALS: BP 145/65; TEMP 97.9; O2SAT 68
[2022-10-01 15:01] LABS: IRON (FE) 52 UG/DL (65-175); PERCENT SATURATION 21.1 % (19.7-50.0); TOTAL IRON BINDING CAPACITY 246 UG/DL (250-425)
[2022-10-01 15:05] LABS: FERRITIN 568.6 NG/ML (10.5-307.3); FOLATE 10.8 NG/ML (>5.4); VITAMIN B12 LEVEL 559 PG/ML (211-911)
[2022-10-01 20:54] VITALS: BP 148/84; TEMP 97.9; O2SAT 98
[2022-10-02] MEDS: THIAMINE 200MG 2ML VIAL IV SCH ×4 (01:49→17:27)
[2022-10-02 06:00] VITALS: BP 147/81; TEMP 97.9; O2SAT 98
[2022-10-02 06:30] LABS: HEMATOCRIT 32.5 % (42.0-52.0); HEMOGLOBIN 11.1 g/dl (13.5-17.5); MEAN CORPUSCULAR HEMOGLOBIN 40.1 pg (27.0-33.0); MEAN CORPUSCULAR HGB CONC 34.2 g/dl (32.0-36.5); RED BLOOD COUNT 2.77 10^6/uL (4.30-6.10); WHITE BLOOD COUNT 5.2 10^3/uL (4.0-10.0)
[2022-10-02 06:34] LABS: MEAN CORPUSCULAR VOLUME 117.3 fl (80.0-96.0); PLATELET COUNT, AUTOMATED 67 10^3/uL (150-450)
[2022-10-02 06:52] LABS: ALBUMIN 2.5 G/DL (3.2-5.2); ALKALINE PHOSPHATASE 148 U/L (46-116); ALT/SGPT 38 U/L (7.0-40); AST/SGOT 102 U/L (<34); BLOOD UREA NITROGEN 16 MG/DL (9-23); CALCIUM LEVEL 7.4 MG/DL (8.3-10.6); CARBON DIOXIDE LEVEL 25 MMOL/L (20-31); CHLORIDE LEVEL 103 MMOL/L (98-107); CREATININE FOR GFR 0.83 MG/DL (0.70-1.30); GLOMERULAR FILTRATION RATE > 60.0 (>42); GLUCOSE, FASTING 90 MG/DL (74-106); POTASSIUM SERUM 3.4 MMOL/L (3.5-5.1); SODIUM LEVEL 137 MMOL/L (136-145); TOTAL PROTEIN 5.8 G/DL (5.7-8.2)
[2022-10-02] MEDS ORDERED: POTASSIUM CHLORIDE 10MEQ SR TABLET PO ONE (07:30)
[2022-10-02] MEDS: GABAPENTIN 300 MG CAP PO SCH ×3 (10:12→20:15)
[2022-10-02] MEDS: MULTIVITAMINS/MINERALS THERAP 1 TAB PO SCH (10:12)
[2022-10-02] MEDS: FOLIC ACID 1MG TAB PO SCH (10:12)
[2022-10-02] MEDS: SPIRONOLACTONE 25 MG TAB PO SCH (10:13)
[2022-10-02] MEDS: MAGNESIUM OXIDE 400MG TAB (MAG-OX) PO SCH (10:13)
[2022-10-02] MEDS: ATORVASTATIN 20 MG TAB PO SCH (10:14)
[2022-10-02] MEDS: DOCUSATE SODIUM 100MG CAPSULE PO SCH ×2 (10:14→20:09)
[2022-10-02] MEDS: ASPIRIN 81MG ENTERIC TABLET PO SCH (10:14)
[2022-10-02] MEDS: atenoloL 25 MG TAB PO SCH ×2 (10:16→20:16)
[2022-10-02 14:00] VITALS: BP 138/77; TEMP 98.2; O2SAT 97
[2022-10-02 19:46] VITALS: BP 139/76; TEMP 98.2; O2SAT 97
[2022-10-03] VITALS (7 sets, daily range): BP systolic 120–156; BP diastolic 62–82; TEMP 97.7–100.3; O2SAT 98–99
[2022-10-03] MEDS: THIAMINE 200MG 2ML VIAL IV SCH ×3 (00:27→16:07)
[2022-10-03 06:05] LABS: HEMATOCRIT 30.1 % (42.0-52.0); HEMOGLOBIN 10.1 g/dl (13.5-17.5); MEAN CORPUSCULAR HEMOGLOBIN 39.1 pg (27.0-33.0); MEAN CORPUSCULAR HGB CONC 33.6 g/dl (32.0-36.5); RED BLOOD COUNT 2.58 10^6/uL (4.30-6.10); WHITE BLOOD COUNT 5.1 10^3/uL (4.0-10.0)
[2022-10-03 06:24] LABS: ALBUMIN 2.5 G/DL (3.2-5.2); ALKALINE PHOSPHATASE 133 U/L (46-116); ALT/SGPT 40 U/L (7.0-40); AST/SGOT 41 U/L (<34); BILIRUBIN,DIRECT 0.9 MG/DL (<0.4); BILIRUBIN,TOTAL 1.8 MG/DL (0.3-1.2); BLOOD UREA NITROGEN 17 MG/DL (9-23); CALCIUM LEVEL 7.7 MG/DL (8.3-10.6); CARBON DIOXIDE LEVEL 24 MMOL/L (20-31); CHLORIDE LEVEL 104 MMOL/L (98-107); CREATININE FOR GFR 0.88 MG/DL (0.70-1.30); GLOMERULAR FILTRATION RATE > 60.0 (>42); GLUCOSE, FASTING 92 MG/DL (74-106); POTASSIUM SERUM 3.9 MMOL/L (3.5-5.1); SODIUM LEVEL 136 MMOL/L (136-145); TOTAL PROTEIN 5.6 G/DL (5.7-8.2)
[2022-10-03 07:22] LABS: MEAN CORPUSCULAR VOLUME 116.7 fl (80.0-96.0); PLATELET COUNT, AUTOMATED 57 10^3/uL (150-450)
[2022-10-03] MEDS: ATORVASTATIN 20 MG TAB PO SCH (08:30)
[2022-10-03] MEDS: ASPIRIN 81MG ENTERIC TABLET PO SCH (08:30)
[2022-10-03] MEDS: FOLIC ACID 1MG TAB PO SCH (08:30)
[2022-10-03] MEDS: MAGNESIUM OXIDE 400MG TAB (MAG-OX) PO SCH (08:30)
[2022-10-03] MEDS: SPIRONOLACTONE 25 MG TAB PO SCH (08:30)
[2022-10-03] MEDS: MULTIVITAMINS/MINERALS THERAP 1 TAB PO SCH (08:30)
[2022-10-03] MEDS: ACETAMINOPHEN TAB 650MG DOSE (2X325MG) PO PRN ×2 (08:30→22:37)
[2022-10-03] MEDS: GABAPENTIN 300 MG CAP PO SCH ×3 (08:31→21:00)
[2022-10-03] MEDS: DOCUSATE SODIUM 100MG CAPSULE PO SCH ×2 (08:31→20:58)
[2022-10-03] MEDS: atenoloL 25 MG TAB PO SCH ×2 (08:33→20:53)
[2022-10-03] MEDS ORDERED: LR 500 ML IV ONE (11:00)
[2022-10-03 23:30] LABS: BASO # 0.1 10^3/uL (0.0-0.2); EOS # 0.1 10^3/uL (0.0-0.5); HEMATOCRIT 29.7 % (42.0-52.0); HEMOGLOBIN 10.2 g/dl (13.5-17.5); LYMPH # 0.9 10^3/uL (1.5-5.0); LYMPH % 14.9 % (24.0-44.0); MEAN CORPUSCULAR HGB CONC 34.3 g/dl (32.0-36.5); MONO # 0.8 10^3/uL (0.0-0.8); MONO % 12.7 % (2.0-8.0); NEUTROPHILS # 4.1 10^3/uL (1.5-8.5); NEUTROPHILS % 68.7 % (36.0-66.0); RED BLOOD COUNT 2.55 10^6/uL (4.30-6.10); WHITE BLOOD COUNT 5.9 10^3/uL (4.0-10.0)
[2022-10-03 23:53] LABS: MEAN CORPUSCULAR VOLUME 116.5 fl (80.0-96.0)
[2022-10-03 23:54] LABS: PLATELET COUNT, AUTOMATED 71 10^3/uL (150-450)
[2022-10-04 00:04] LABS: ALBUMIN 2.6 G/DL (3.2-5.2); BILIRUBIN,DIRECT 0.9 MG/DL (<0.4); BILIRUBIN,TOTAL 1.7 MG/DL (0.3-1.2); TOTAL PROTEIN 5.9 G/DL (5.7-8.2)
[2022-10-04 00:11] LABS: ANISOCYTOSIS 2+; PLATELET ESTIMATE DECREASED (NORMAL)
[2022-10-04 04:07] VITALS: O2SAT 95
[2022-10-04 05:24] VITALS: BP 142/78; TEMP 98.1; O2SAT 98
[2022-10-04 06:13] LABS: HEMATOCRIT 29.2 % (42.0-52.0); HEMOGLOBIN 9.7 g/dl (13.5-17.5); MEAN CORPUSCULAR HGB CONC 33.2 g/dl (32.0-36.5); RED BLOOD COUNT 2.49 10^6/uL (4.30-6.10); WHITE BLOOD COUNT 4.8 10^3/uL (4.0-10.0)
[2022-10-04 06:45] LABS: ALBUMIN 2.5 G/DL (3.2-5.2); ALKALINE PHOSPHATASE 138 U/L (46-116); ALT/SGPT 32 U/L (7.0-40); AST/SGOT 59 U/L (<34); BILIRUBIN,DIRECT 0.8 MG/DL (<0.4); BILIRUBIN,TOTAL 1.4 MG/DL (0.3-1.2); BLOOD UREA NITROGEN 17 MG/DL (9-23); CALCIUM LEVEL 7.7 MG/DL (8.3-10.6); CARBON DIOXIDE LEVEL 24 MMOL/L (20-31); CHLORIDE LEVEL 106 MMOL/L (98-107); GLOMERULAR FILTRATION RATE > 60.0 (>42); GLUCOSE, FASTING 96 MG/DL (74-106); POTASSIUM SERUM 3.8 MMOL/L (3.5-5.1); SODIUM LEVEL 138 MMOL/L (136-145); TOTAL PROTEIN 5.4 G/DL (5.7-8.2)
[2022-10-04 06:49] VITALS: TEMP 98.6
[2022-10-04 07:02] LABS: MEAN CORPUSCULAR VOLUME 117.3 fl (80.0-96.0); PLATELET COUNT, AUTOMATED 59 10^3/uL (150-450)
[2022-10-04] MEDS ORDERED: THIAMINE 200MG 2ML VIAL IV SCH (09:00)
[2022-10-04 10:18] VITALS: BP_SYST 130; BP_SYST 161; BP_SYST 165; BP_DIAS 81; BP_DIAS 84; BP_DIAS 85
[2022-10-04] MEDS: MAGNESIUM OXIDE 400MG TAB (MAG-OX) PO SCH (10:28)
[2022-10-04] MEDS: GABAPENTIN 300 MG CAP PO SCH ×3 (10:28→23:04)
[2022-10-04] MEDS: MULTIVITAMINS/MINERALS THERAP 1 TAB PO SCH (10:28)
[2022-10-04] MEDS: DOCUSATE SODIUM 100MG CAPSULE PO SCH ×2 (10:29→23:04)
[2022-10-04] MEDS: atenoloL 25 MG TAB PO SCH ×2 (10:29→21:00)
[2022-10-04] MEDS: ATORVASTATIN 20 MG TAB PO SCH (10:29)
[2022-10-04] MEDS: FOLIC ACID 1MG TAB PO SCH (10:29)
[2022-10-04] MEDS: SPIRONOLACTONE 25 MG TAB PO SCH (10:29)
[2022-10-04] MEDS: ASPIRIN 81MG ENTERIC TABLET PO SCH (10:29)
[2022-10-04] MEDS: THIAMINE INJection 250 MG in NS 100 ML IV SCH (10:30)
[2022-10-04 21:45] VITALS: BP 139/71; TEMP 99.1; O2SAT 97
[2022-10-04] MEDS: KETOCONAZOLE 2% CREAM TOP SCH (23:04)
[2022-10-04] MEDS: RAMELTEON 8 MG TAB (ROZEREM) PO PRN (23:04)
[2022-10-05 06:00] VITALS: BP 131/68; TEMP 99.9; O2SAT 96
[2022-10-05] MEDS: FOLIC ACID 1MG TAB PO SCH (09:09)
[2022-10-05] MEDS: ASPIRIN 81MG ENTERIC TABLET PO SCH (09:09)
[2022-10-05] MEDS: DOCUSATE SODIUM 100MG CAPSULE PO SCH ×2 (09:09→20:30)
[2022-10-05] MEDS: MULTIVITAMINS/MINERALS THERAP 1 TAB PO SCH (09:09)
[2022-10-05] MEDS: GABAPENTIN 300 MG CAP PO SCH ×3 (09:10→20:30)
[2022-10-05] MEDS: THIAMINE INJection 250 MG in NS 100 ML IV SCH (09:10)
[2022-10-05] MEDS: ATORVASTATIN 20 MG TAB PO SCH (09:10)
[2022-10-05] MEDS: KETOCONAZOLE 2% CREAM TOP SCH ×2 (09:10→20:34)
[2022-10-05] MEDS: MAGNESIUM OXIDE 400MG TAB (MAG-OX) PO SCH (09:10)
[2022-10-05] MEDS: SPIRONOLACTONE 25 MG TAB PO SCH (09:10)
[2022-10-05] MEDS: atenoloL 25 MG TAB PO SCH ×2 (09:12→20:32)
[2022-10-05 19:09] VITALS: BP 136/70; TEMP 100.1; O2SAT 97
[2022-10-05] MEDS ORDERED: ONDANSETRON 4MG 2ML VIAL IV PRN (19:15)
[2022-10-05] MEDS ORDERED: SENOKOT S TAB PO PRN (19:55)
[2022-10-05] MEDS ORDERED: PROMETHAZINE 25MG/ML 1ML VIAL IV ONE (20:15)
[2022-10-05 20:31] VITALS: BP 139/69; TEMP 100.7; O2SAT 97
[2022-10-05] MEDS: ACETAMINOPHEN TAB 650MG DOSE (2X325MG) PO PRN (20:39)
[2022-10-05] MEDS ORDERED: NS 1,000 ML IV SCH (20:55)
[2022-10-05] MEDS ORDERED: ISOVUE-370 76% 100ML VIAL As Ordered ONE (21:00)
[2022-10-05 22:30] VITALS: TEMP 99.5
[2022-10-05] MEDS ORDERED: BISACODYL 10MG SUPP PR PRN (23:20)
[2022-10-06] VITALS (10 sets, daily range): BP systolic 90–156; BP diastolic 52–79; TEMP 98.4–102; O2SAT 93–96
[2022-10-06] MEDS: RAMELTEON 8 MG TAB (ROZEREM) PO PRN (00:31)
[2022-10-06 06:11] LABS: BASO % 0.5 % (0.0-1.0); EOS # 0.2 10^3/uL (0.0-0.5); HEMATOCRIT 34.5 % (42.0-52.0); HEMOGLOBIN 11.6 g/dl (13.5-17.5); LYMPH # 0.4 10^3/uL (1.5-5.0); LYMPH % 6.6 % (24.0-44.0); MEAN CORPUSCULAR HEMOGLOBIN 39.3 pg (27.0-33.0); MEAN CORPUSCULAR HGB CONC 33.6 g/dl (32.0-36.5); MONO # 0.8 10^3/uL (0.0-0.8); MONO % 12.4 % (2.0-8.0); NEUTROPHILS # 4.9 10^3/uL (1.5-8.5); RED BLOOD COUNT 2.95 10^6/uL (4.30-6.10); WHITE BLOOD COUNT 6.4 10^3/uL (4.0-10.0)
[2022-10-06 06:38] LABS: ALBUMIN 2.9 G/DL (3.2-5.2); ALKALINE PHOSPHATASE 147 U/L (46-116); ALT/SGPT 50 U/L (7.0-40); AST/SGOT 70 U/L (<34); BILIRUBIN,TOTAL 1.7 MG/DL (0.3-1.2); BLOOD UREA NITROGEN 20 MG/DL (9-23); CALCIUM LEVEL 8.4 MG/DL (8.3-10.6); CARBON DIOXIDE LEVEL 22 MMOL/L (20-31); CHLORIDE LEVEL 106 MMOL/L (98-107); CREATININE FOR GFR 0.87 MG/DL (0.70-1.30); GLOMERULAR FILTRATION RATE > 60.0 (>42); GLUCOSE, FASTING 93 MG/DL (74-106); POTASSIUM SERUM 4.4 MMOL/L (3.5-5.1); SODIUM LEVEL 137 MMOL/L (136-145); TOTAL PROTEIN 6.3 G/DL (5.7-8.2)
[2022-10-06 07:23] LABS: MEAN CORPUSCULAR VOLUME 116.9 fl (80.0-96.0)
[2022-10-06 07:28] LABS: PLATELET ESTIMATE INVALID (NORMAL)
[2022-10-06 08:54] LABS: PLTBLUE- EDTA FREE CALC 70 K/mm3 (172-450); PLTBLUE- EDTA FREE MACHINE 64 10^3/uL (172-450)
[2022-10-06] MEDS ORDERED: MIRALAX *UNIT DOSE* 17GM PACKET PO SCH (09:00)
[2022-10-06] MEDS: THIAMINE INJection 250 MG in NS 100 ML IV SCH (09:49)
[2022-10-06] MEDS: FOLIC ACID 1MG TAB PO SCH (09:50)
[2022-10-06] MEDS: DOCUSATE SODIUM 100MG CAPSULE PO SCH ×2 (09:50→20:11)
[2022-10-06] MEDS: SPIRONOLACTONE 25 MG TAB PO SCH (09:52)
[2022-10-06] MEDS: ASPIRIN 81MG ENTERIC TABLET PO SCH (09:52)
[2022-10-06] MEDS: GABAPENTIN 300 MG CAP PO SCH ×3 (09:52→20:11)
[2022-10-06] MEDS: MAGNESIUM OXIDE 400MG TAB (MAG-OX) PO SCH (09:52)
[2022-10-06] MEDS: ATORVASTATIN 20 MG TAB PO SCH (09:52)
[2022-10-06] MEDS: MULTIVITAMINS/MINERALS THERAP 1 TAB PO SCH (09:52)
[2022-10-06] MEDS: ACETAMINOPHEN TAB 650MG DOSE (2X325MG) PO PRN (09:53)
[2022-10-06] MEDS: atenoloL 25 MG TAB PO SCH ×2 (09:53→20:12)
[2022-10-06] MEDS: KETOCONAZOLE 2% CREAM TOP SCH ×2 (09:58→20:15)
[2022-10-06 11:02] LABS: RSV AMPLIFICATION NEGATIVE (NEGATIVE)
[2022-10-06] MEDS: CEFEPIME HCL 2 GM in D5W MINI-BAG PLUS 50 ML IV SCH (11:54)
[2022-10-06 12:26] LABS: INR 1.18; PROTHROMBIN TIME 15.2 SECONDS (12.5-14.5)
[2022-10-06 12:29] LABS: D-DIMER QUANT 2205.1 ng/ml (<500)
[2022-10-06] MEDS ORDERED: LR 1,000 ML IV ONE (15:35)
[2022-10-06 19:32] LABS: ERYTHROCYTE SEDIMENTATION RATE 94 mm/hr (0-20)
[2022-10-07] MEDS: CEFEPIME HCL 2 GM in D5W MINI-BAG PLUS 50 ML IV SCH ×3 (00:49→23:12)
[2022-10-07 02:00] VITALS: BP 126/72; TEMP 98.6; O2SAT 95
[2022-10-07 06:00] VITALS: BP 128/72; TEMP 99.4; O2SAT 95
[2022-10-07 06:36] LABS: BASO % 0.6 % (0.0-1.0); EOS # 0.3 10^3/uL (0.0-0.5); LYMPH # 0.6 10^3/uL (1.5-5.0); LYMPH % 17.3 % (24.0-44.0); MEAN CORPUSCULAR HEMOGLOBIN 39.3 pg (27.0-33.0); MEAN CORPUSCULAR HGB CONC 33.6 g/dl (32.0-36.5); MONO # 0.6 10^3/uL (0.0-0.8); MONO % 16.4 % (2.0-8.0); NEUTROPHILS # 2.1 10^3/uL (1.5-8.5); NEUTROPHILS % 58.1 % (36.0-66.0); RED BLOOD COUNT 2.39 10^6/uL (4.30-6.10); WHITE BLOOD COUNT 3.6 10^3/uL (4.0-10.0)
[2022-10-07 06:37] LABS: HEMOGLOBIN 9.4 g/dl (13.5-17.5); MEAN CORPUSCULAR VOLUME 117.2 fl (80.0-96.0); PLATELET COUNT, AUTOMATED 83 10^3/uL (150-450)
[2022-10-07 07:07] LABS: PLATELET ESTIMATE DECREASED (NORMAL)
[2022-10-07 07:08] LABS: OVALOCYTES 1+; POLYCHROMASIA 1+; TEAR DROP CELLS 1+
[2022-10-07 07:09] LABS: SCHISTOCYTES 1+
[2022-10-07 07:11] LABS: ALBUMIN 2.3 G/DL (3.2-5.2); ALKALINE PHOSPHATASE 112 U/L (46-116); ALT/SGPT 44 U/L (7.0-40); AST/SGOT 56 U/L (<34); BILIRUBIN,TOTAL 1.1 MG/DL (0.3-1.2); BLOOD UREA NITROGEN 21 MG/DL (9-23); CALCIUM LEVEL 7.8 MG/DL (8.3-10.6); CARBON DIOXIDE LEVEL 23 MMOL/L (20-31); CHLORIDE LEVEL 106 MMOL/L (98-107); CORTISOL AM 10.9 UG/DL (4.3-22.4); GLOMERULAR FILTRATION RATE > 60.0 (>42); GLUCOSE, FASTING 83 MG/DL (74-106); SODIUM LEVEL 136 MMOL/L (136-145); TOTAL PROTEIN 5.2 G/DL (5.7-8.2)
[2022-10-07] MEDS: atenoloL 25 MG TAB PO SCH ×2 (09:00→20:30)
[2022-10-07] MEDS: DOCUSATE SODIUM 100MG CAPSULE PO SCH ×2 (09:00→20:34)
[2022-10-07] MEDS: SPIRONOLACTONE 25 MG TAB PO SCH (09:00)
[2022-10-07] MEDS ORDERED: MIRALAX *UNIT DOSE* 17GM PACKET PO PRN (09:00)
[2022-10-07] MEDS: THIAMINE 100 MG TAB PO SCH (11:15)
[2022-10-07] MEDS: GABAPENTIN 300 MG CAP PO SCH ×3 (11:16→20:34)
[2022-10-07] MEDS: MAGNESIUM OXIDE 400MG TAB (MAG-OX) PO SCH ×2 (11:16→11:21)
[2022-10-07] MEDS: FOLIC ACID 1MG TAB PO SCH (11:16)
[2022-10-07] MEDS: ATORVASTATIN 20 MG TAB PO SCH (11:16)
[2022-10-07] MEDS: ASPIRIN 81MG ENTERIC TABLET PO SCH (11:16)
[2022-10-07] MEDS: MULTIVITAMINS/MINERALS THERAP 1 TAB PO SCH (11:21)
[2022-10-07] MEDS: KETOCONAZOLE 2% CREAM TOP SCH ×2 (11:21→20:34)
[2022-10-07] MEDS ORDERED: ISOVUE-370 76% 100ML VIAL As Ordered ONE (12:11)
[2022-10-07 12:33] LABS: HIV 1&2 SCREEN NEGATIVE (NEGATIVE)
[2022-10-07 16:57] VITALS: BP 156/76; TEMP 97.5; O2SAT 96
[2022-10-07] MEDS: RAMELTEON 8 MG TAB (ROZEREM) PO PRN (20:34)
[2022-10-07 20:52] VITALS: BP 134/68; TEMP 99.3; O2SAT 96
[2022-10-08] VITALS (8 sets, daily range): BP systolic 79–150; BP diastolic 50–86; TEMP 97.7–99.5; O2SAT 93–96
[2022-10-08 07:13] LABS: BASO % 0.8 % (0.0-1.0); EOS # 0.2 10^3/uL (0.0-0.5); EOS % 5.1 % (0.0-3.0); HEMATOCRIT 28.1 % (42.0-52.0); HEMOGLOBIN 9.6 g/dl (13.5-17.5); LYMPH # 0.7 10^3/uL (1.5-5.0); LYMPH % 13.9 % (24.0-44.0); MEAN CORPUSCULAR HGB CONC 34.2 g/dl (32.0-36.5); MONO # 0.7 10^3/uL (0.0-0.8); MONO % 14.8 % (2.0-8.0); NEUTROPHILS # 3.1 10^3/uL (1.5-8.5); NEUTROPHILS % 64.8 % (36.0-66.0); RED BLOOD COUNT 2.46 10^6/uL (4.30-6.10); WHITE BLOOD COUNT 4.7 10^3/uL (4.0-10.0)
[2022-10-08 07:16] LABS: MEAN CORPUSCULAR VOLUME 114.2 fl (80.0-96.0); PLATELET COUNT, AUTOMATED 94 10^3/uL (150-450)
[2022-10-08 07:28] LABS: ERYTHROCYTE SEDIMENTATION RATE 55 mm/hr (0-20)
[2022-10-08 07:39] LABS: ALBUMIN 2.2 G/DL (3.2-5.2); ALKALINE PHOSPHATASE 109 U/L (46-116); ALT/SGPT 46 U/L (7.0-40); AST/SGOT 57 U/L (<34); BILIRUBIN,TOTAL 1.1 MG/DL (0.3-1.2); BLOOD UREA NITROGEN 16 MG/DL (9-23); CALCIUM LEVEL 7.8 MG/DL (8.3-10.6); CARBON DIOXIDE LEVEL 20 MMOL/L (20-31); CHLORIDE LEVEL 107 MMOL/L (98-107); CREATININE FOR GFR 0.75 MG/DL (0.70-1.30); GLOMERULAR FILTRATION RATE > 60.0 (>42); GLUCOSE, FASTING 89 MG/DL (74-106); POTASSIUM SERUM 3.9 MMOL/L (3.5-5.1); SODIUM LEVEL 135 MMOL/L (136-145); TOTAL PROTEIN 5.1 G/DL (5.7-8.2)
[2022-10-08 08:22] LABS: PLATELET ESTIMATE DECREASED (NORMAL)
[2022-10-08 08:24] LABS: OVALOCYTES 1+; POIKILOCYTOSIS 1+; TEAR DROP CELLS 1+
[2022-10-08] MEDS: atenoloL 25 MG TAB PO SCH ×2 (09:00→20:49)
[2022-10-08] MEDS: GABAPENTIN 300 MG CAP PO SCH ×3 (09:00→20:57)
[2022-10-08] MEDS: SPIRONOLACTONE 25 MG TAB PO SCH (09:00)
[2022-10-08] MEDS: DOCUSATE SODIUM 100MG CAPSULE PO SCH ×2 (09:00→20:57)
[2022-10-08] MEDS: CEFEPIME HCL 2 GM in D5W MINI-BAG PLUS 50 ML IV SCH ×2 (11:20→23:22)
[2022-10-08] MEDS: ASPIRIN 81MG ENTERIC TABLET PO SCH (11:21)
[2022-10-08] MEDS: FOLIC ACID 1MG TAB PO SCH (11:21)
[2022-10-08] MEDS: MAGNESIUM OXIDE 400MG TAB (MAG-OX) PO SCH (11:21)
[2022-10-08] MEDS: THIAMINE 100 MG TAB PO SCH (11:24)
[2022-10-08] MEDS: MULTIVITAMINS/MINERALS THERAP 1 TAB PO SCH (11:24)
[2022-10-08] MEDS: ATORVASTATIN 20 MG TAB PO SCH (11:24)
[2022-10-08] MEDS: KETOCONAZOLE 2% CREAM TOP SCH ×2 (11:36→20:57)
[2022-10-08] MEDS ORDERED: LR 1,000 ML IV ONE (13:10)
[2022-10-08] MEDS: RAMELTEON 8 MG TAB (ROZEREM) PO PRN (20:57)
[2022-10-09] VITALS (7 sets, daily range): BP systolic 83–147; BP diastolic 55–82; TEMP 96.5–99.2; O2SAT 97
[2022-10-09 05:46] LABS: HEMATOCRIT 28.5 % (42.0-52.0); HEMOGLOBIN 9.6 g/dl (13.5-17.5); MEAN CORPUSCULAR HEMOGLOBIN 38.6 pg (27.0-33.0); MEAN CORPUSCULAR HGB CONC 33.7 g/dl (32.0-36.5); RED BLOOD COUNT 2.49 10^6/uL (4.30-6.10); WHITE BLOOD COUNT 4.8 10^3/uL (4.0-10.0)
[2022-10-09 06:00] LABS: MEAN CORPUSCULAR VOLUME 114.5 fl (80.0-96.0); PLATELET COUNT, AUTOMATED 92 10^3/uL (150-450)
[2022-10-09 06:22] LABS: ALBUMIN 2.3 G/DL (3.2-5.2); ALKALINE PHOSPHATASE 119 U/L (46-116); ALT/SGPT 49 U/L (7.0-40); AST/SGOT 59 U/L (<34); BLOOD UREA NITROGEN 15 MG/DL (9-23); CALCIUM LEVEL 7.8 MG/DL (8.3-10.6); CARBON DIOXIDE LEVEL 20 MMOL/L (20-31); CHLORIDE LEVEL 108 MMOL/L (98-107); CREATININE FOR GFR 0.73 MG/DL (0.70-1.30); GLOMERULAR FILTRATION RATE > 60.0 (>42); GLUCOSE, FASTING 120 MG/DL (74-106); POTASSIUM SERUM 3.7 MMOL/L (3.5-5.1); SODIUM LEVEL 138 MMOL/L (136-145); TOTAL PROTEIN 5.2 G/DL (5.7-8.2)
[2022-10-09 07:13] LABS: PLATELET ESTIMATE DECREASED (NORMAL)
[2022-10-09 07:14] LABS: OVALOCYTES 1+
[2022-10-09 07:18] LABS: BASOPHILS 2 % (0-1); EOSINOPHILS 2 % (0-3); LYMPHOCYTES 17 % (16-44); MONOCYTES 11 % (0-5); NEUTROPHILS 68 % (28-66)
[2022-10-09] MEDS: MULTIVITAMINS/MINERALS THERAP 1 TAB PO SCH (08:32)
[2022-10-09] MEDS: GABAPENTIN 300 MG CAP PO SCH ×3 (08:32→20:47)
[2022-10-09] MEDS: THIAMINE 100 MG TAB PO SCH (08:32)
[2022-10-09] MEDS: LevoFLOXacin 750 MG TABLET PO SCH (08:33)
[2022-10-09] MEDS: ASPIRIN 81MG ENTERIC TABLET PO SCH (08:33)
[2022-10-09] MEDS: DOCUSATE SODIUM 100MG CAPSULE PO SCH ×2 (08:33→20:47)
[2022-10-09] MEDS: ATORVASTATIN 20 MG TAB PO SCH (08:33)
[2022-10-09] MEDS: FOLIC ACID 1MG TAB PO SCH (08:33)
[2022-10-09] MEDS: SPIRONOLACTONE 25 MG TAB PO SCH (08:33)
[2022-10-09] MEDS: MAGNESIUM OXIDE 400MG TAB (MAG-OX) PO SCH (08:34)
[2022-10-09] MEDS: atenoloL 25 MG TAB PO SCH ×2 (08:34→20:44)
[2022-10-09] MEDS: KETOCONAZOLE 2% CREAM TOP SCH ×3 (08:34→20:50)
[2022-10-09] MEDS: MIDODRINE 5 MG TAB PO SCH (16:21)
[2022-10-09] MEDS: RAMELTEON 8 MG TAB (ROZEREM) PO PRN (20:47)
[2022-10-10] MEDS: LevoFLOXacin 750 MG TABLET PO SCH (05:18)
[2022-10-10 05:50] LABS: BASO # 0.1 10^3/uL (0.0-0.2); BASO % 0.8 % (0.0-1.0); EOS # 0.3 10^3/uL (0.0-0.5); HEMATOCRIT 29.4 % (42.0-52.0); HEMOGLOBIN 9.9 g/dl (13.5-17.5); LYMPH # 1.2 10^3/uL (1.5-5.0); LYMPH % 18.6 % (24.0-44.0); MEAN CORPUSCULAR HEMOGLOBIN 38.1 pg (27.0-33.0); MEAN CORPUSCULAR HGB CONC 33.7 g/dl (32.0-36.5); MEAN CORPUSCULAR VOLUME 113.1 fl (80.0-96.0); MONO # 0.8 10^3/uL (0.0-0.8); MONO % 11.9 % (2.0-8.0); NEUTROPHILS % 64.2 % (36.0-66.0); PLATELET COUNT, AUTOMATED 116 10^3/uL (150-450); WHITE BLOOD COUNT 6.3 10^3/uL (4.0-10.0)
[2022-10-10 06:09] LABS: ALBUMIN 2.3 G/DL (3.2-5.2); ALKALINE PHOSPHATASE 117 U/L (46-116); ALT/SGPT 48 U/L (7.0-40); AST/SGOT 51 U/L (<34); BILIRUBIN,TOTAL 1.1 MG/DL (0.3-1.2); BLOOD UREA NITROGEN 14 MG/DL (9-23); CARBON DIOXIDE LEVEL 21 MMOL/L (20-31); CHLORIDE LEVEL 107 MMOL/L (98-107); CREATININE FOR GFR 0.75 MG/DL (0.70-1.30); GLOMERULAR FILTRATION RATE > 60.0 (>42); GLUCOSE, FASTING 90 MG/DL (74-106); POTASSIUM SERUM 3.8 MMOL/L (3.5-5.1); SODIUM LEVEL 137 MMOL/L (136-145); TOTAL PROTEIN 5.3 G/DL (5.7-8.2)
[2022-10-10 06:12] LABS: ERYTHROCYTE SEDIMENTATION RATE 54 mm/hr (0-20)
[2022-10-10 06:39] VITALS: BP 141/74; TEMP 98.8; O2SAT 97
[2022-10-10] MEDS: MIDODRINE 5 MG TAB PO SCH ×2 (08:00→12:30)
[2022-10-10 08:15] VITALS: BP 152/86
[2022-10-10] MEDS: MAGNESIUM OXIDE 400MG TAB (MAG-OX) PO SCH (08:19)
[2022-10-10] MEDS: THIAMINE 100 MG TAB PO SCH (08:19)
[2022-10-10] MEDS: MULTIVITAMINS/MINERALS THERAP 1 TAB PO SCH (08:19)
[2022-10-10] MEDS: ATORVASTATIN 20 MG TAB PO SCH (08:19)
[2022-10-10] MEDS: SPIRONOLACTONE 25 MG TAB PO SCH (08:19)
[2022-10-10] MEDS: GABAPENTIN 300 MG CAP PO SCH ×3 (08:19→20:06)
[2022-10-10] MEDS: ASPIRIN 81MG ENTERIC TABLET PO SCH (08:19)
[2022-10-10] MEDS: atenoloL 25 MG TAB PO SCH ×2 (08:20→20:06)
[2022-10-10] MEDS: FOLIC ACID 1MG TAB PO SCH (08:21)
[2022-10-10] MEDS: KETOCONAZOLE 2% CREAM TOP SCH ×2 (08:21→20:03)
[2022-10-10] MEDS: DOCUSATE SODIUM 100MG CAPSULE PO SCH ×2 (08:21→20:07)
[2022-10-10 12:28] VITALS: BP 124/71
[2022-10-10 14:00] VITALS: BP 123/71; TEMP 97.7; O2SAT 99
[2022-10-10] MEDS: RAMELTEON 8 MG TAB (ROZEREM) PO PRN (20:06)
[2022-10-10 20:52] VITALS: BP 119/66; TEMP 98.2; O2SAT 98
[2022-10-11] MEDS: LevoFLOXacin 750 MG TABLET PO SCH (05:04)
[2022-10-11 05:49] VITALS: BP 138/72; TEMP 98.1; O2SAT 99
[2022-10-11 06:36] LABS: BASO # 0.1 10^3/uL (0.0-0.2); EOS # 0.3 10^3/uL (0.0-0.5); EOS % 3.9 % (0.0-3.0); HEMATOCRIT 30.9 % (42.0-52.0); HEMOGLOBIN 10.4 g/dl (13.5-17.5); LYMPH # 1.1 10^3/uL (1.5-5.0); LYMPH % 15.9 % (24.0-44.0); MEAN CORPUSCULAR HGB CONC 33.7 g/dl (32.0-36.5); MONO # 0.8 10^3/uL (0.0-0.8); MONO % 11.6 % (2.0-8.0); NEUTROPHILS # 4.7 10^3/uL (1.5-8.5); NEUTROPHILS % 66.9 % (36.0-66.0); PLATELET COUNT, AUTOMATED 127 10^3/uL (150-450); RED BLOOD COUNT 2.67 10^6/uL (4.30-6.10)
[2022-10-11 06:50] LABS: MEAN CORPUSCULAR VOLUME 115.7 fl (80.0-96.0)
[2022-10-11 06:57] LABS: ALBUMIN 2.4 G/DL (3.2-5.2); ALKALINE PHOSPHATASE 122 U/L (46-116); ALT/SGPT 48 U/L (7.0-40); AST/SGOT 48 U/L (<34); BLOOD UREA NITROGEN 16 MG/DL (9-23); CALCIUM LEVEL 8.2 MG/DL (8.3-10.6); CARBON DIOXIDE LEVEL 21 MMOL/L (20-31); CHLORIDE LEVEL 108 MMOL/L (98-107); CREATININE FOR GFR 0.79 MG/DL (0.70-1.30); GLOMERULAR FILTRATION RATE > 60.0 (>42); GLUCOSE, FASTING 100 MG/DL (74-106); POTASSIUM SERUM 3.9 MMOL/L (3.5-5.1); SODIUM LEVEL 138 MMOL/L (136-145); TOTAL PROTEIN 5.6 G/DL (5.7-8.2)
[2022-10-11 07:41] LABS: PLATELET ESTIMATE DECREASED (NORMAL)
[2022-10-11 07:42] LABS: OVALOCYTES 1+
[2022-10-11 07:43] LABS: ANISOCYTOSIS 1+
[2022-10-11] MEDS ORDERED: LEVO1TAB40 PO (08:08)
[2022-10-11] MEDS ORDERED: RAME8TAB2 PO (08:08)
[2022-10-11] MEDS: KETOCONAZOLE 2% CREAM TOP SCH (09:00)
[2022-10-11] MEDS: GABAPENTIN 300 MG CAP PO SCH (09:48)
[2022-10-11] MEDS: ASPIRIN 81MG ENTERIC TABLET PO SCH (09:49)
[2022-10-11] MEDS: MAGNESIUM OXIDE 400MG TAB (MAG-OX) PO SCH (09:49)
[2022-10-11] MEDS: FOLIC ACID 1MG TAB PO SCH (09:49)
[2022-10-11] MEDS: ATORVASTATIN 20 MG TAB PO SCH (09:49)
[2022-10-11] MEDS: DOCUSATE SODIUM 100MG CAPSULE PO SCH (09:49)
[2022-10-11] MEDS: THIAMINE 100 MG TAB PO SCH (09:49)
[2022-10-11] MEDS: MULTIVITAMINS/MINERALS THERAP 1 TAB PO SCH (09:49)
[2022-10-11 09:51] VITALS: BP 149/81
[2022-10-11] MEDS: SPIRONOLACTONE 25 MG TAB PO SCH (09:51)
[2022-10-11] MEDS: atenoloL 25 MG TAB PO SCH (09:51)
== END 2022-10-11 14:34 | disposition home health service (06) | DRG 312 ==
LOC: EDSEX 10:18 → M ED 10:18 → EDBD 10:18 → M ED INP 15:27 → ENRESERV 16:21 → M MSPAV 18:25
PROVIDERS: ADMIT Student in an Organized Health Care Education/Training Program; ATTEND Internal Medicine
DX: I95.1 Orthostatic hypotension (principal); G93.41 Metabolic encephalopathy; E87.20 Acidosis, unspecified; D61.818 Other pancytopenia; R29.6 Repeated falls; D69.6 Thrombocytopenia, unspecified; I10 Essential (primary) hypertension; K76.0 Fatty (change of) liver, not elsewhere classified; E78.00 Pure hypercholesterolemia, unspecified; E78.5 Hyperlipidemia, unspecified; R74.01 Elevation of levels of liver transaminase levels; R50.9 Fever, unspecified; G62.9 Polyneuropathy, unspecified; F10.20 Alcohol dependence, uncomplicated; R26.89 Other abnormalities of gait and mobility; K52.9 Noninfective gastroenteritis and colitis, unspecified; E83.42 Hypomagnesemia; Z88.0 Allergy status to penicillin; Z79.899 Other long term (current) drug therapy; Z79.82 Long term (current) use of aspirin; Z85.46 Personal history of malignant neoplasm of prostate

== ENCOUNTER 2022-10-11 17:21 | Inpatient (IN) | payer MEDICARE ==
[~2022-10-11] VITALS: Ht 188 cm; Wt 84.4 kg
[~2022-10-11 17:21] MED LIST changes: +CIPR500T39 PO; +LEVO1TAB40 PO; +MAGN250T6 PO; +RAME8TAB2 PO; +SPIR-10 PO
[2022-10-11] MEDS ORDERED: NS 1,000 ML IV ONE (18:15)
[2022-10-11 18:25] LABS: BASO # 0.1 10^3/uL (0.0-0.2); BASO % 0.9 % (0.0-1.0); EOS # 0.2 10^3/uL (0.0-0.5); EOS % 2.7 % (0.0-3.0); HEMATOCRIT 35.4 % (42.0-52.0); HEMOGLOBIN 11.9 g/dl (13.5-17.5); LYMPH # 1.3 10^3/uL (1.5-5.0); LYMPH % 14.1 % (24.0-44.0); MEAN CORPUSCULAR HEMOGLOBIN 38.9 pg (27.0-33.0); MEAN CORPUSCULAR HGB CONC 33.6 g/dl (32.0-36.5); MONO % 10.9 % (2.0-8.0); NEUTROPHILS # 6.4 10^3/uL (1.5-8.5); NEUTROPHILS % 70.7 % (36.0-66.0); PLATELET COUNT, AUTOMATED 190 10^3/uL (150-450); RED BLOOD COUNT 3.06 10^6/uL (4.30-6.10); WHITE BLOOD COUNT 9.1 10^3/uL (4.0-10.0)
[2022-10-11 18:27] LABS: MEAN CORPUSCULAR VOLUME 115.7 fl (80.0-96.0)
[2022-10-11 18:42] LABS: PLATELET ESTIMATE NORMAL (NORMAL); POLYCHROMASIA 1+
[2022-10-11] MEDS ORDERED: ACETAMINOPHEN TAB 650MG DOSE (2X325MG) PO PRN (18:45)
[2022-10-11 18:53] LABS: ETHYL ALCOHOL (ETHANOL) < 0.003 % (0.000-0.010)
[2022-10-11] MEDS ORDERED: MED REC IN PROGRESS XX SCH (19:05)
[2022-10-11 19:08] LABS: BLOOD UREA NITROGEN 18 MG/DL (9-23); CALCIUM LEVEL 8.6 MG/DL (8.3-10.6); CARBON DIOXIDE LEVEL 23 MMOL/L (20-31); CHLORIDE LEVEL 106 MMOL/L (98-107); CREATININE FOR GFR 1.07 MG/DL (0.70-1.30); GLOMERULAR FILTRATION RATE > 60.0 (>42); GLUCOSE, FASTING 107 MG/DL (74-106); MAGNESIUM LEVEL 1.5 MG/DL (1.8-2.4); POTASSIUM SERUM 4.4 MMOL/L (3.5-5.1); SODIUM LEVEL 136 MMOL/L (136-145)
[2022-10-11] MEDS ORDERED: HOME MED LIST COMPLETE! XX SCH (19:15)
[2022-10-11 20:58] VITALS: BP 169/83; TEMP 98.6; O2SAT 99
[2022-10-11] MEDS ORDERED: MAGNESIUM OXIDE 400MG TAB (MAG-OX) PO ONE (21:00)
[2022-10-11] MEDS: GABAPENTIN 300 MG CAP PO SCH (21:49)
[2022-10-11] MEDS: atenoloL 25 MG TAB PO SCH (21:50)
[2022-10-12] VITALS (7 sets, daily range): BP systolic 107–157; BP diastolic 63–89; TEMP 97.5; O2SAT 97
[2022-10-12] MEDS: LevoFLOXacin 750 MG TABLET PO SCH (05:51)
[2022-10-12 06:33] LABS: HEMATOCRIT 32.9 % (42.0-52.0); HEMOGLOBIN 11.1 g/dl (13.5-17.5); MEAN CORPUSCULAR HEMOGLOBIN 39.1 pg (27.0-33.0); MEAN CORPUSCULAR HGB CONC 33.7 g/dl (32.0-36.5); PLATELET COUNT, AUTOMATED 135 10^3/uL (150-450); RED BLOOD COUNT 2.84 10^6/uL (4.30-6.10); WHITE BLOOD COUNT 6.7 10^3/uL (4.0-10.0)
[2022-10-12 06:49] LABS: ALBUMIN 2.6 G/DL (3.2-5.2); ALKALINE PHOSPHATASE 130 U/L (46-116); ALT/SGPT 49 U/L (7.0-40); AST/SGOT 48 U/L (<34); BLOOD UREA NITROGEN 19 MG/DL (9-23); CALCIUM LEVEL 8.6 MG/DL (8.3-10.6); CARBON DIOXIDE LEVEL 23 MMOL/L (20-31); CHLORIDE LEVEL 107 MMOL/L (98-107); CREATININE FOR GFR 0.87 MG/DL (0.70-1.30); GLOMERULAR FILTRATION RATE > 60.0 (>42); GLUCOSE, FASTING 83 MG/DL (74-106); MAGNESIUM LEVEL 1.5 MG/DL (1.8-2.4); SODIUM LEVEL 138 MMOL/L (136-145); TOTAL PROTEIN 5.9 G/DL (5.7-8.2)
[2022-10-12 07:03] LABS: MEAN CORPUSCULAR VOLUME 115.8 fl (80.0-96.0)
[2022-10-12] MEDS ORDERED: NS 1,000 ML IV SCH (07:45)
[2022-10-12] MEDS: MIDODRINE 5 MG TAB PO SCH ×3 (08:00→16:00)
[2022-10-12] MEDS: atenoloL 25 MG TAB PO SCH ×2 (08:08→22:01)
[2022-10-12] MEDS: ASPIRIN 81MG ENTERIC TABLET PO SCH (08:08)
[2022-10-12] MEDS: ATORVASTATIN 20 MG TAB PO SCH (08:08)
[2022-10-12] MEDS: GABAPENTIN 300 MG CAP PO SCH ×3 (08:08→21:59)
[2022-10-12] MEDS: MULTIVITAMINS/MINERALS THERAP 1 TAB PO SCH (08:08)
[2022-10-12] MEDS: ENOXAPARIN 40MG/0.4ML SYRINGE (J1650 PER 10MG) SC SCH (08:09)
[2022-10-13] MEDS: LevoFLOXacin 750 MG TABLET PO SCH (05:55)
[2022-10-13 06:00] VITALS: BP 122/78; TEMP 97.7; O2SAT 99
[2022-10-13] MEDS: MIDODRINE 5 MG TAB PO SCH ×3 (08:00→15:56)
[2022-10-13 08:03] VITALS: BP 145/78
[2022-10-13] MEDS: ENOXAPARIN 40MG/0.4ML SYRINGE (J1650 PER 10MG) SC SCH (08:07)
[2022-10-13] MEDS: GABAPENTIN 300 MG CAP PO SCH ×3 (08:07→20:01)
[2022-10-13] MEDS: MULTIVITAMINS/MINERALS THERAP 1 TAB PO SCH (08:07)
[2022-10-13] MEDS: ATORVASTATIN 20 MG TAB PO SCH (08:07)
[2022-10-13] MEDS: atenoloL 25 MG TAB PO SCH (08:07)
[2022-10-13] MEDS: ASPIRIN 81MG ENTERIC TABLET PO SCH (08:07)
[2022-10-13 11:00] VITALS: BP_SYST 62
[2022-10-13 11:03] VITALS: BP 88/46
[2022-10-13] MEDS ORDERED: MAGNESIUM OXIDE 400MG TAB (MAG-OX) PO ONE (12:00)
[2022-10-13 12:15] VITALS: BP 112/60
[2022-10-13 15:56] VITALS: BP 145/73
[2022-10-14] MEDS: LevoFLOXacin 750 MG TABLET PO SCH (05:11)
[2022-10-14 05:19] VITALS: BP 148/73; TEMP 97.7; O2SAT 97
[2022-10-14] MEDS: MIDODRINE 5 MG TAB PO SCH ×3 (08:00→16:36)
[2022-10-14] MEDS: ATORVASTATIN 20 MG TAB PO SCH (08:13)
[2022-10-14] MEDS: GABAPENTIN 300 MG CAP PO SCH ×3 (08:13→20:45)
[2022-10-14] MEDS: MULTIVITAMINS/MINERALS THERAP 1 TAB PO SCH (08:13)
[2022-10-14] MEDS: ENOXAPARIN 40MG/0.4ML SYRINGE (J1650 PER 10MG) SC SCH (08:13)
[2022-10-14] MEDS: ASPIRIN 81MG ENTERIC TABLET PO SCH (08:13)
[2022-10-14 12:42] VITALS: BP 130/69
[2022-10-14 16:36] VITALS: BP 132/71
[2022-10-15] MEDS: LevoFLOXacin 750 MG TABLET PO SCH (05:32)
[2022-10-15 06:00] VITALS: BP 136/75; TEMP 98.1; O2SAT 92
[2022-10-15 08:15] VITALS: BP 126/77
[2022-10-15] MEDS: GABAPENTIN 300 MG CAP PO SCH ×3 (08:15→20:08)
[2022-10-15] MEDS: ASPIRIN 81MG ENTERIC TABLET PO SCH (08:15)
[2022-10-15] MEDS: MULTIVITAMINS/MINERALS THERAP 1 TAB PO SCH (08:15)
[2022-10-15] MEDS: ATORVASTATIN 20 MG TAB PO SCH (08:15)
[2022-10-15] MEDS: MIDODRINE 5 MG TAB PO SCH ×3 (08:16→16:00)
[2022-10-15] MEDS: ENOXAPARIN 40MG/0.4ML SYRINGE (J1650 PER 10MG) SC SCH ×2 (08:16→08:35)
[2022-10-15] MEDS ORDERED: MAGNESIUM OXIDE 400MG TAB (MAG-OX) PO ONE (09:50)
[2022-10-15 12:05] LABS: HEMATOCRIT 31.1 % (42.0-52.0); HEMOGLOBIN 10.7 g/dl (13.5-17.5); MEAN CORPUSCULAR HEMOGLOBIN 38.9 pg (27.0-33.0); MEAN CORPUSCULAR HGB CONC 34.4 g/dl (32.0-36.5); MEAN CORPUSCULAR VOLUME 113.1 fl (80.0-96.0); PLATELET COUNT, AUTOMATED 145 10^3/uL (150-450); RED BLOOD COUNT 2.75 10^6/uL (4.30-6.10); WHITE BLOOD COUNT 6.6 10^3/uL (4.0-10.0)
[2022-10-15 12:29] VITALS: BP 139/77
[2022-10-15 16:36] VITALS: BP 132/75
[2022-10-16 06:00] VITALS: BP 150/70; TEMP 98.2; O2SAT 97
[2022-10-16] MEDS: MIDODRINE 5 MG TAB PO SCH ×3 (08:00→16:00)
[2022-10-16 08:40] VITALS: BP 137/75
[2022-10-16] MEDS: ATORVASTATIN 20 MG TAB PO SCH (08:41)
[2022-10-16] MEDS: ASPIRIN 81MG ENTERIC TABLET PO SCH (08:41)
[2022-10-16] MEDS: MULTIVITAMINS/MINERALS THERAP 1 TAB PO SCH (08:41)
[2022-10-16] MEDS: ENOXAPARIN 40MG/0.4ML SYRINGE (J1650 PER 10MG) SC SCH (08:41)
[2022-10-16] MEDS: GABAPENTIN 300 MG CAP PO SCH ×3 (08:41→20:19)
[2022-10-16 12:12] VITALS: BP 122/66
[2022-10-16 16:49] VITALS: BP 139/66
[2022-10-17 06:00] VITALS: BP 126/68; TEMP 98.8; O2SAT 96
[2022-10-17] MEDS: ASPIRIN 81MG ENTERIC TABLET PO SCH (08:10)
[2022-10-17] MEDS: MIDODRINE 5 MG TAB PO SCH ×3 (08:10→16:00)
[2022-10-17] MEDS: MULTIVITAMINS/MINERALS THERAP 1 TAB PO SCH (08:10)
[2022-10-17] MEDS: ATORVASTATIN 20 MG TAB PO SCH (08:10)
[2022-10-17] MEDS: ENOXAPARIN 40MG/0.4ML SYRINGE (J1650 PER 10MG) SC SCH (08:10)
[2022-10-17] MEDS: GABAPENTIN 300 MG CAP PO SCH ×3 (08:10→19:58)
[2022-10-17 12:05] VITALS: BP 132/64
[2022-10-17 16:22] VITALS: BP 131/72
[2022-10-18 06:00] VITALS: BP 122/72; TEMP 97.7; O2SAT 96
[2022-10-18] MEDS: MIDODRINE 5 MG TAB PO SCH ×2 (08:00→12:42)
[2022-10-18 09:51] VITALS: BP 133/72
[2022-10-18] MEDS: MULTIVITAMINS/MINERALS THERAP 1 TAB PO SCH (09:53)
[2022-10-18] MEDS: ATORVASTATIN 20 MG TAB PO SCH (09:53)
[2022-10-18] MEDS: GABAPENTIN 300 MG CAP PO SCH (09:53)
[2022-10-18] MEDS: ASPIRIN 81MG ENTERIC TABLET PO SCH (09:53)
[2022-10-18] MEDS: ENOXAPARIN 40MG/0.4ML SYRINGE (J1650 PER 10MG) SC SCH (09:54)
== END 2022-10-18 15:15 | DRG 312 ==
LOC: M ED 17:21 → EDBD 17:21 → M ED INP 18:44 → ENRESERV 20:01 → M MSPAV 20:54
PROVIDERS: ADMIT Internal Medicine; ATTEND Family Medicine
DX: I95.1 Orthostatic hypotension (principal); E78.5 Hyperlipidemia, unspecified; I10 Essential (primary) hypertension; D69.6 Thrombocytopenia, unspecified; D64.9 Anemia, unspecified; F10.10 Alcohol abuse, uncomplicated; G62.9 Polyneuropathy, unspecified; R26.89 Other abnormalities of gait and mobility; R29.6 Repeated falls; Z88.0 Allergy status to penicillin; Z79.899 Other long term (current) drug therapy; Z79.82 Long term (current) use of aspirin; Z85.46 Personal history of malignant neoplasm of prostate; I25.10 Atherosclerotic heart disease of native coronary artery without angina pectoris

== ENCOUNTER → 2023-05-02 | Outpatient (CLI) | payer MEDICARE | LOC: M CLY 11:40 | PROVIDERS: ATTEND Nurse Practitioner Family | DX: Z01.818 Encounter for other preprocedural examination (principal) ==

== ENCOUNTER → 2023-05-02 | Outpatient (REF) | payer MEDICARE ==
[2023-05-02 16:42] LABS: BASO % 0.5 % (0.0-1.0); EOS # 0.2 10^3/uL (0.0-0.5); EOS % 2.6 % (0.0-3.0); HEMATOCRIT 36.7 % (42.0-52.0); HEMOGLOBIN 12.3 g/dl (13.5-17.5); LYMPH # 1.4 10^3/uL (1.5-5.0); LYMPH % 16.6 % (24.0-44.0); MEAN CORPUSCULAR HEMOGLOBIN 34.6 pg (27.0-33.0); MEAN CORPUSCULAR HGB CONC 33.5 g/dl (32.0-36.5); MEAN CORPUSCULAR VOLUME 103.1 fl (80.0-96.0); MONO # 0.8 10^3/uL (0.0-0.8); MONO % 9.2 % (2.0-8.0); NEUTROPHILS # 6.1 10^3/uL (1.5-8.5); NEUTROPHILS % 70.9 % (36.0-66.0); PLATELET COUNT, AUTOMATED 126 10^3/uL (150-450); RED BLOOD COUNT 3.56 10^6/uL (4.30-6.10); WHITE BLOOD COUNT 8.6 10^3/uL (4.0-10.0)
[2023-05-02 17:12] LABS: ALBUMIN 3.5 G/DL (3.2-5.2); ALKALINE PHOSPHATASE 88 U/L (46-116); ALT/SGPT 17 U/L (7.0-40); AST/SGOT 18 U/L (<34); BILIRUBIN,TOTAL 1.2 MG/DL (0.3-1.2); BLOOD UREA NITROGEN 21 MG/DL (9-23); CALCIUM LEVEL 9.4 MG/DL (8.3-10.6); CARBON DIOXIDE LEVEL 27 MMOL/L (20-31); CHLORIDE LEVEL 106 MMOL/L (98-107); CHOLESTEROL LEVEL 126 MG/DL (<200); CHOLESTEROL RISK RATIO 3.16 (<5); CREATININE FOR GFR 0.88 MG/DL (0.70-1.30); GLOMERULAR FILTRATION RATE > 60.0 (>42); GLUCOSE, FASTING 96 MG/DL (74-106); HDL CHOLESTEROL 39.8 MG/DL (>40); LDL CHOLESTEROL 70.8 MG/DL (<100); NON-HDL-C 86.2 MG/DL; POTASSIUM SERUM 5.2 MMOL/L (3.5-5.1); SODIUM LEVEL 138 MMOL/L (136-145); TOTAL PROTEIN 6.4 G/DL (5.7-8.2); TRIGLYCERIDES LEVEL 77 MG/DL (<150)
[2023-05-02 17:16] LABS: HEMOGLOBIN A1c 5.1 % (4.0-6.0)
== END ==
LOC: M SFHCCLAY 11:14
PROVIDERS: ATTEND Nurse Practitioner Family
DX: Z01.818 Encounter for other preprocedural examination (principal); I11.9 Hypertensive heart disease without heart failure; E78.5 Hyperlipidemia, unspecified; E88.09 Other disorders of plasma-protein metabolism, not elsewhere classified; D53.9 Nutritional anemia, unspecified; R74.01 Elevation of levels of liver transaminase levels; Z79.899 Other long term (current) drug therapy

== ENCOUNTER 2023-05-03 10:27 | Day surgery (SDC) | payer MEDICARE ==
[~2023-05-03] VITALS: Ht 185.4 cm; Wt 77.9 kg
[2023-05-03] MEDS: NS 1,000 ML IV ONE (10:51)
[2023-05-03 10:52] VITALS: TEMP 97.3
[2023-05-03] MEDS ORDERED: fentaNYL 100 MCG/2 ML INJECTION As Ordered ONE (12:02)
[2023-05-03] MEDS ORDERED: propofoL 200 MG/20 ML VIAL As Ordered ONE (12:36)
[2023-05-03] MEDS ORDERED: ePHEDrine SULFATE 25 MG/5 ML(5MG/ML) SYRINGE As Ordered ONE (12:52)
[2023-05-03 13:46] VITALS: BP 108/59; O2SAT 98
== END 2023-05-03 13:46 | disposition home or self-care (01) ==
LOC: M OPP 10:27
PROVIDERS: ATTEND Internal Medicine Gastroenterology
DX: Z12.11 Encounter for screening for malignant neoplasm of colon (principal); D12.6 Benign neoplasm of colon, unspecified; K64.4 Residual hemorrhoidal skin tags; K64.8 Other hemorrhoids; K57.30 Diverticulosis of large intestine without perforation or abscess without bleeding; I86.8 Varicose veins of other specified sites; D50.0 Iron deficiency anemia secondary to blood loss (chronic); K29.70 Gastritis, unspecified, without bleeding; K21.00 Gastro-esophageal reflux disease with esophagitis, without bleeding; K75.9 Inflammatory liver disease, unspecified; K22.70 Barrett's esophagus without dysplasia; G47.30 Sleep apnea, unspecified; Z99.89 Dependence on other enabling machines and devices; Z79.02 Long term (current) use of antithrombotics/antiplatelets; Z79.82 Long term (current) use of aspirin; Z79.891 Long term (current) use of opiate analgesic; Z79.899 Other long term (current) drug therapy; Z88.0 Allergy status to penicillin
CPT/HCPCS: 43239; 45385; 88305; J3010

== ENCOUNTER → 2023-07-10 | Outpatient (CLI) | payer MEDICARE | LOC: M RAD 09:30 | PROVIDERS: ATTEND Internal Medicine Gastroenterology | DX: R93.2 Abnormal findings on diagnostic imaging of liver and biliary tract (principal); D69.6 Thrombocytopenia, unspecified; K76.0 Fatty (change of) liver, not elsewhere classified; I86.8 Varicose veins of other specified sites ==

== ENCOUNTER → 2023-10-04 | Outpatient (CLI) | payer MEDICARE ==
[~2023-10-04] MED LIST changes: +B-1100TA2; +CYAN100081; +FOLI1TAB11
== END ==
LOC: M CLY 09:15
PROVIDERS: ATTEND Physician Assistant
DX: L03.115 Cellulitis of right lower limb (principal)

== ENCOUNTER → 2023-10-04 | Outpatient (REF) | payer MEDICARE ==
[2023-10-04 17:11] LABS: ALBUMIN 3.6 G/DL (3.2-5.2); ALKALINE PHOSPHATASE 95 U/L (46-116); ALT/SGPT 17 U/L (7.0-40); AST/SGOT 11 U/L (<34); BILIRUBIN,TOTAL 0.8 MG/DL (0.3-1.2); BLOOD UREA NITROGEN 24 MG/DL (9-23); CALCIUM LEVEL 8.8 MG/DL (8.3-10.6); CARBON DIOXIDE LEVEL 28 MMOL/L (20-31); CHLORIDE LEVEL 109 MMOL/L (98-107); CREATININE FOR GFR 1.03 MG/DL (0.70-1.30); GLOMERULAR FILTRATION RATE > 60.0 (>42); GLUCOSE, FASTING 114 MG/DL (74-106); POTASSIUM SERUM 4.7 MMOL/L (3.5-5.1); SODIUM LEVEL 140 MMOL/L (136-145); TOTAL PROTEIN 6.4 G/DL (5.7-8.2)
[2023-10-04 17:12] LABS: BASO % 0.4 % (0.0-1.0); EOS # 0.4 10^3/uL (0.0-0.5); EOS % 3.9 % (0.0-3.0); HEMATOCRIT 36.4 % (42.0-52.0); HEMOGLOBIN 12.4 g/dl (13.5-17.5); LYMPH # 1.1 10^3/uL (1.5-5.0); LYMPH % 10.1 % (24.0-44.0); MEAN CORPUSCULAR HEMOGLOBIN 34.6 pg (27.0-33.0); MEAN CORPUSCULAR HGB CONC 34.1 g/dl (32.0-36.5); MEAN CORPUSCULAR VOLUME 101.7 fl (80.0-96.0); MONO % 9.4 % (2.0-8.0); NEUTROPHILS # 8.3 10^3/uL (1.5-8.5); NEUTROPHILS % 75.8 % (36.0-66.0); PLATELET COUNT, AUTOMATED 179 10^3/uL (150-450); RED BLOOD COUNT 3.58 10^6/uL (4.30-6.10)
[2023-10-04 17:23] LABS: ERYTHROCYTE SEDIMENTATION RATE 33 mm/hr (0-20)
== END ==
LOC: M SFHCCLAY 09:11
PROVIDERS: ATTEND Physician Assistant
DX: L03.115 Cellulitis of right lower limb (principal)

== ENCOUNTER → 2023-12-03 | Outpatient (REF) | payer MEDICARE ==
[~2023-12-03] MED LIST changes: +FAMO40TA3 PO; +GABA-284 PO; +PRED5TA PO
[2023-12-03 17:40] LABS: BASO # 0.1 10^3/uL (0.0-0.2); BASO % 0.6 % (0.0-1.0); EOS # 0.2 10^3/uL (0.0-0.5); EOS % 2.7 % (0.0-3.0); HEMATOCRIT 39.9 % (42.0-52.0); HEMOGLOBIN 13.1 g/dl (13.5-17.5); LYMPH # 1.6 10^3/uL (1.5-5.0); LYMPH % 18.2 % (24.0-44.0); MEAN CORPUSCULAR HEMOGLOBIN 33.2 pg (27.0-33.0); MEAN CORPUSCULAR HGB CONC 32.8 g/dl (32.0-36.5); MEAN CORPUSCULAR VOLUME 101.3 fl (80.0-96.0); MONO # 0.8 10^3/uL (0.0-0.8); NEUTROPHILS # 6.1 10^3/uL (1.5-8.5); PLATELET COUNT, AUTOMATED 158 10^3/uL (150-450); RED BLOOD COUNT 3.94 10^6/uL (4.30-6.10); WHITE BLOOD COUNT 8.8 10^3/uL (4.0-10.0)
[2023-12-03 17:59] LABS: ALBUMIN 3.6 G/DL (3.2-5.2); ALKALINE PHOSPHATASE 106 U/L (46-116); ALT/SGPT 23 U/L (7.0-40); AST/SGOT 16 U/L (<34); BILIRUBIN,TOTAL 0.9 MG/DL (0.3-1.2); BLOOD UREA NITROGEN 22 MG/DL (9-23); CALCIUM LEVEL 9.3 MG/DL (8.3-10.6); CARBON DIOXIDE LEVEL 29 MMOL/L (20-31); CHLORIDE LEVEL 110 MMOL/L (98-107); CHOLESTEROL LEVEL 128 MG/DL (<200); CHOLESTEROL RISK RATIO 4.01 (<5); CREATININE FOR GFR 1.06 MG/DL (0.70-1.30); GLOMERULAR FILTRATION RATE > 60.0 (>42); GLUCOSE, FASTING 74 MG/DL (74-106); HDL CHOLESTEROL 31.9 MG/DL (>40); LDL CHOLESTEROL 67.1 MG/DL (<100); NON-HDL-C 96.1 MG/DL; POTASSIUM SERUM 4.4 MMOL/L (3.5-5.1); SODIUM LEVEL 143 MMOL/L (136-145); TOTAL PROTEIN 6.5 G/DL (5.7-8.2); TRIGLYCERIDES LEVEL 145 MG/DL (<150)
[2023-12-03 18:36] LABS: HEMOGLOBIN A1c 5.3 % (4.0-6.0)
== END ==
LOC: M SFHCCLAY 10:22
PROVIDERS: ATTEND Nurse Practitioner Family
DX: Z01.818 Encounter for other preprocedural examination (principal); I11.9 Hypertensive heart disease without heart failure; E78.5 Hyperlipidemia, unspecified; E88.09 Other disorders of plasma-protein metabolism, not elsewhere classified; D53.9 Nutritional anemia, unspecified; R74.01 Elevation of levels of liver transaminase levels; G56.02 Carpal tunnel syndrome, left upper limb; Z79.899 Other long term (current) drug therapy

== ENCOUNTER 2023-12-05 11:35 | Day surgery (SDC) | payer MEDICARE ==
[~2023-12-05] VITALS: Ht 188 cm; Wt 79.4 kg
[2023-12-05] MEDS ORDERED: LR 1,000 ML IV SCH (12:05)
[2023-12-05] MEDS ORDERED: ACETAMINOPHEN 1000MG 100ML IV BAG As Ordered ONE (12:06)
[2023-12-05] MEDS ORDERED: LIDOCAINE 2% 100MG/5ML SDV (FOR ANES.) As Ordered ONE (12:06)
[2023-12-05] MEDS ORDERED: propofoL 200 MG/20 ML VIAL As Ordered ONE (12:06)
[2023-12-05] MEDS: ceFAZolin SOD 2 GM in IV 1 EA IV ONE (12:57)
[2023-12-05] MEDS: LIDOCAINE 1% MDV 20ML VIAL As Ordered ONE (12:57)
[2023-12-05] MEDS ORDERED: ONDANSETRON 4MG 2ML VIAL As Ordered ONE (13:07)
[2023-12-05] MEDS ORDERED: KETOROLAC 60MG 2ML VIAL As Ordered ONE (13:07)
[2023-12-05 13:17] VITALS: BP 124/60; TEMP 96.1; O2SAT 98
== END 2023-12-05 13:49 | disposition home or self-care (01) ==
LOC: M SDC 11:35
PROVIDERS: ATTEND Podiatrist Foot & Ankle Surgery
DX: L03.115 Cellulitis of right lower limb (principal); M77.41 Metatarsalgia, right foot; I10 Essential (primary) hypertension; E78.5 Hyperlipidemia, unspecified; Z85.46 Personal history of malignant neoplasm of prostate; Z79.899 Other long term (current) drug therapy; Z88.0 Allergy status to penicillin
CPT/HCPCS: 28113; 88304; 88311; J0131; J0665; J0690; J1885; J2405

== ENCOUNTER → 2023-12-14 | Outpatient (CLI) | payer MEDICARE | LOC: M RAD 11:56 | PROVIDERS: ATTEND Podiatrist Foot & Ankle Surgery | DX: R60.0 Localized edema (principal) ==

== ENCOUNTER → 2024-01-17 | Outpatient (REF) | payer MEDICARE ==
[~2024-01-17] MED LIST changes: +GABA-1172 PO; -GABA-282 PO
[2024-01-17 12:41] LABS: APPEARANCE, URINE TURBID (CLEAR); BACTERIA, URINE AUTO NEGATIVE (NEGATIVE); BILIRUBIN, URINE AUTO NEGATIVE (NEGATIVE); BLOOD, URINE BLOOD 1+ (NEGATIVE); COLOR, URINE YELLOW (YELLOW); GLUCOSE, URINE (UA) AUTO NEGATIVE (NEGATIVE); KETONE, URINE AUTO NEGATIVE (NEGATIVE); LEUKOCYTE ESTERASE, URINE AUTO 2+ (NEGATIVE); NITRITE, URINE AUTO NEGATIVE (NEGATIVE); PROTEIN, URINE AUTO 3+ mg/dL (NEGATIVE); RBC, URINE AUTO 10 /HPF (0-3); SPECIFIC GRAVITY URINE AUTO 1.015 (1.002-1.035); SQUAMOUS EPITHELIAL CELL UR AU 1 /HPF (0-6); WBC, URINE AUTO 3 /HPF (0-3)
== END ==
LOC: M SFHCCLAY 08:59
PROVIDERS: ATTEND Nurse Practitioner Family
DX: R30.0 Dysuria (principal)

== ENCOUNTER → 2024-04-18 | Outpatient (REF) | payer MEDICARE ==
[~2024-04-18] MED LIST changes: +GABA-1490; +PRED5TA
[2024-04-18 17:20] LABS: APPEARANCE, URINE CLOUDY (CLEAR); BACTERIA, URINE AUTO 3+ (NEGATIVE); BILIRUBIN, URINE AUTO NEGATIVE (NEGATIVE); BLOOD, URINE BLOOD 1+ (NEGATIVE); COLOR, URINE AMBER (YELLOW); GLUCOSE, URINE (UA) AUTO NEGATIVE (NEGATIVE); KETONE, URINE AUTO NEGATIVE (NEGATIVE); LEUKOCYTE ESTERASE, URINE AUTO 3+ (NEGATIVE); MUCUS, URINE SMALL (NEGATIVE); NITRITE, URINE AUTO POSITIVE (NEGATIVE); PROTEIN, URINE AUTO 2+ mg/dL (NEGATIVE); RBC, URINE AUTO 21 /HPF (0-3); SQUAMOUS EPITHELIAL CELL UR AU 0 /HPF (0-6); UROBILINOGEN, URINE AUTO 0.2 mg/dL (0.0-2.0); WBC, URINE AUTO TNTC /HPF (0-3)
== END ==
LOC: M SFHCCLAY 11:15
PROVIDERS: ATTEND Nurse Practitioner Family
DX: R35.0 Frequency of micturition (principal)

== ENCOUNTER → 2024-04-28 | Outpatient (REF) | payer MEDICARE ==
[2024-04-28 12:21] LABS: APPEARANCE, URINE CLEAR (CLEAR); BACTERIA, URINE AUTO NEGATIVE (NEGATIVE); BILIRUBIN, URINE AUTO NEGATIVE (NEGATIVE); BLOOD, URINE BLOOD 1+ (NEGATIVE); COLOR, URINE YELLOW (YELLOW); GLUCOSE, URINE (UA) AUTO NEGATIVE (NEGATIVE); KETONE, URINE AUTO NEGATIVE (NEGATIVE); LEUKOCYTE ESTERASE, URINE AUTO 1+ (NEGATIVE); NITRITE, URINE AUTO NEGATIVE (NEGATIVE); PROTEIN, URINE AUTO 1+ mg/dL (NEGATIVE); RBC, URINE AUTO 4 /HPF (0-3); SPECIFIC GRAVITY URINE AUTO 1.019 (1.002-1.035); SQUAMOUS EPITHELIAL CELL UR AU 1 /HPF (0-6); UROBILINOGEN, URINE AUTO 0.2 mg/dL (0.0-2.0); WBC, URINE AUTO 8 /HPF (0-3)
== END ==
LOC: M SFHCCLAY 08:35
PROVIDERS: ATTEND Nurse Practitioner Family
DX: N39.0 Urinary tract infection, site not specified (principal)

== ENCOUNTER → 2024-06-11 | Outpatient (REF) | payer MEDICARE ==
[2024-06-11 18:39] LABS: PSA SCREENING 0.04 NG/ML (< 4.00)
[2024-06-11 18:43] LABS: ALBUMIN 3.7 G/DL (3.2-5.2); ALKALINE PHOSPHATASE 80 U/L (40-129); ALT/SGPT 21 U/L (7.0-40); AST/SGOT 23 U/L (<34); BLOOD UREA NITROGEN 23 MG/DL (9-23); CALCIUM LEVEL 9.2 MG/DL (8.3-10.6); CARBON DIOXIDE LEVEL 27 MMOL/L (20-31); CHLORIDE LEVEL 109 MMOL/L (98-107); CHOLESTEROL LEVEL 135 MG/DL (<200); CHOLESTEROL RISK RATIO 3.61 (<5); GLOMERULAR FILTRATION RATE > 60.0 (>42); GLUCOSE, FASTING 75 MG/DL (74-106); HDL CHOLESTEROL 37.3 MG/DL (>40); LDL CHOLESTEROL 70.3 MG/DL (<100); NON-HDL-C 97.7 MG/DL; POTASSIUM SERUM 4.6 MMOL/L (3.5-5.1); SODIUM LEVEL 145 MMOL/L (136-145); TOTAL PROTEIN 6.6 G/DL (5.7-8.2); TRIGLYCERIDES LEVEL 137 MG/DL (<150)
[2024-06-11 19:13] LABS: HEMOGLOBIN A1c 5.4 % (4.0-6.0)
== END ==
LOC: M SFHCCLAY 10:54
PROVIDERS: ATTEND Nurse Practitioner Family
DX: I11.9 Hypertensive heart disease without heart failure (principal); E78.5 Hyperlipidemia, unspecified; E88.09 Other disorders of plasma-protein metabolism, not elsewhere classified; D53.9 Nutritional anemia, unspecified; Z85.46 Personal history of malignant neoplasm of prostate; Z12.5 Encounter for screening for malignant neoplasm of prostate
CPT/HCPCS: 80053; 80061; 83036; G0103

== ENCOUNTER → 2024-10-09 | Outpatient (REF) | payer MEDICARE | LOC: EEVIPCON 12:03 → M LAB REF 12:03 | PROVIDERS: ATTEND Podiatrist Foot & Ankle Surgery | DX: L03.115 Cellulitis of right lower limb (principal) ==

== ENCOUNTER → 2024-12-04 | Outpatient (REF) | payer MEDICARE ==
[2024-12-04 18:56] LABS: BASO # 0.1 10^3/uL (0.0-0.2); BASO % 0.6 % (0.0-1.0); EOS # 0.3 10^3/uL (0.0-0.5); EOS % 3.0 % (0.0-3.0); LYMPH # 2.1 10^3/uL (1.5-5.0); LYMPH % 19.4 % (24.0-44.0); MONO # 0.7 10^3/uL (0.0-0.8); MONO % 6.6 % (2.0-8.0); NEUTROPHILS # 7.6 10^3/uL (1.5-8.5); NEUTROPHILS % 70.0 % (36.0-66.0); PLATELET COUNT, AUTOMATED 193 10^3/uL (150-450)
[2024-12-04 19:14] LABS: ALT/SGPT 17.0 U/L (7.0-40); AST/SGOT 17.0 U/L (<34); CALCIUM LEVEL 8.8 MG/DL (8.3-10.6); CARBON DIOXIDE LEVEL 27.0 MMOL/L (20-31); CHLORIDE LEVEL 108.0 MMOL/L (98-107); CHOLESTEROL LEVEL 118.0 MG/DL (<200); CHOLESTEROL RISK RATIO 3.16 (<5); CREATININE FOR GFR 1.12 MG/DL (0.70-1.30); GLOMERULAR FILTRATION RATE 69.4 (>42); LDL CHOLESTEROL 63.7 MG/DL (<100); NON-HDL-C 80.7 MG/DL; POTASSIUM SERUM 4.3 MMOL/L (3.5-5.1); SODIUM LEVEL 142.0 MMOL/L (136-145); TRIGLYCERIDES LEVEL 85.0 MG/DL (<150)
[2024-12-04 19:23] LABS: ESTIMATED AVERAGE GLUCOSE 108.0 MG/DL (60-110)
== END ==
LOC: M SFHCCLAY 14:21
PROVIDERS: ATTEND Nurse Practitioner Family
DX: I11.9 Hypertensive heart disease without heart failure (principal); E78.5 Hyperlipidemia, unspecified; E88.09 Other disorders of plasma-protein metabolism, not elsewhere classified; D53.9 Nutritional anemia, unspecified; Z85.46 Personal history of malignant neoplasm of prostate; R35.0 Frequency of micturition

== ENCOUNTER → 2025-02-13 | Outpatient (CLI) | payer MEDICARE | LOC: M RAD 06:35 | PROVIDERS: ATTEND Internal Medicine Critical Care Medicine | DX: Z87.891 Personal history of nicotine dependence (principal) ==

== ENCOUNTER → 2025-03-03 | Outpatient (CLI) | payer MEDICARE | LOC: M PLARAD 08:19 | PROVIDERS: ATTEND Internal Medicine Pulmonary Disease | DX: R91.8 Other nonspecific abnormal finding of lung field (principal) | CPT/HCPCS: 78815; A9552 ==